=== PATIENT | female | born 1945 | race Caucasian/White ===

== ENCOUNTER 2022-02-25 08:51 | Outpatient (CLI) | payer OTHER, SELFPAY ==
--- NOTE | 2022-02-25 09:15 | CRLHL7_ITS ---
For Patients: As a result of the Century Cures Act, medical imaging exams and procedure reports are released immediately into your electronic medical record. You may view this report before your referring provider. If you have questions, please contact your health care provider. INDICATION: Hearing loss. TECHNIQUE: Multiplanar multisequence MR imaging acquired through the brain and internal auditory canals prior to and following intravenous contrast. COMPARISON: None. FINDINGS: Prominence of the ventricles and sulci compatible with minimal diffuse cerebral volume loss. No mass effect or midline shift. Small T2 FLAIR hyperintensities scattered in the supratentorial white matter, typical for mild chronic microvascular ischemic changes. No intracranial hemorrhage or pathologic extra-axial fluid collection. No diffusion restriction to suggest acute infarction. No pathologic intracranial enhancement. Incidental small pineal cyst. No mass or pathologic enhancement within the internal auditory canals or cerebellopontine angles. No concerning signal abnormalities in the inner ear structures. No vascular loop within the internal auditory canals. The major arterial flow voids of the skullbase are preserved. Thinning of the ocular lenses. Mild right maxillary and ethmoid sinus mucosal thickening. Small right and trace left mastoid effusions. IMPRESSION: 1. No acute intracranial abnormality. 2. No mass or pathologic enhancement within the internal auditory canals or cerebellopontine angles. 3. Mild chronic microvascular ischemic changes. 4. Small right and trace left mastoid effusions. Dictated by Rolando Varela MD @ 02/25/2022 2:12:46 PM (Electronically Signed)
== END 2022-02-25 08:52 | disposition home or self-care (01) ==
LOC: MRI 08:51
PROVIDERS: PCP Internal Medicine; Visit Provider Otolaryngology
DX: H91.8X9 Other specified hearing loss, unspecified ear (principal); I67.82 Cerebral ischemia; J32.0 Chronic maxillary sinusitis
CPT/HCPCS: 70553

== ENCOUNTER 2022-06-28 15:39 | Outpatient (REF) | payer OTHER, SELFPAY ==
[2022-06-28 16:33] LABS: Basophils Percent Auto 0.2 % (0.0-3.0); Hematocrit 38.7 % (33.0-51.0); Hemoglobin* 12.5 gm/dL (12.0-16.0); Immature Granulocytes Pct Auto 0.1 %; Lymphocytes Percent Auto 83.9 % (20-44); Mean Corpuscular HGB Conc 32 gm/dL (32-36); Mean Corpuscular Hemoglobin 32 pg (26-34); Mean Corpuscular Volume 98 fL (80-100); Monocytes Percent Auto 1.7 % (0.0-11.0); Neutrophils Percent Auto 13.1 % (42.0-72.0); Platelet Count* 188 K/uL (140-440); RDW Coefficient of Variation % 13.4 % (11.5-15.5); Red Blood Count 3.95 m/uL (4.00-5.20); White Blood Count* 17.98 K/uL (4.50-11.00)
[2022-06-28 16:39] LABS: Slide Review Reflex No
== END 2022-06-28 15:40 | disposition home or self-care (01) ==
LOC: NPINS 15:39
PROVIDERS: PCP Internal Medicine
DX: E78.5 Hyperlipidemia, unspecified (principal); R41.3 Other amnesia; K57.32 Diverticulitis of large intestine without perforation or abscess without bleeding; E04.9 Nontoxic goiter, unspecified; H40.023 Open angle with borderline findings, high risk, bilateral; D34 Benign neoplasm of thyroid gland; G47.00 Insomnia, unspecified; I34.1 Nonrheumatic mitral (valve) prolapse; M81.0 Age-related osteoporosis without current pathological fracture; C44.311 Basal cell carcinoma of skin of nose
CPT/HCPCS: 36415; 85025

== ENCOUNTER 2022-10-23 07:06 | Day surgery (SDC) | payer OTHER, SELFPAY ==
[2022-10-23] VITALS (23 sets, daily range): BP systolic 81–146; BP diastolic 55–81; PULSE 65–100; RESP 14–18; TEMP 36.1–37.1; O2SAT 93–100; BMI 24.2
[2022-10-23] MEDS: ACETAMINOPHEN 500 MG TABLET 1000 MG PO ×3 (07:34→19:54)
[2022-10-23] MEDS: OXYCODONE (CR) 10 MG TAB.ER.12H PO (07:34)
[2022-10-23] MEDS: CELECOXIB 200 MG CAPSULE PO ×2 (07:34→21:15)
--- NOTE | 2022-10-23 08:27 | CRLHL7_ITS ---
For Patients: As a result of the Cures Act, medical imaging exams and procedure reports are released immediately into your electronic medical record. You may view this report before your referring provider. If you have questions, please contact your health care provider. Indication: post op total knee arthroplasty Technique: Two views right knee Findings/Impression: Hardware from a right total knee arthroplasty is in satisfactory position. Bone alignment is normal. No sign of acute fracture. Postop changes are within normal limits. Dictated by Carl Vaughn MD @ 10/23/2022 12:17:43 PM (Electronically Signed)
--- NOTE | 2022-10-23 08:34 | SUR.PREOP ---
TIME?OUT:?0834 PT/RN/MDA?VERIFICATION?OF?SURGICAL?SITE,?PROCEDURE,?AND?CONSENT OBTAINED?PRIOR?TO?INVASIVE?PROCEDURE.
[2022-10-23] MEDS: MIDAZOLAM HCL 1 MG/ML inj IVP (08:38)
[2022-10-23] MEDS: fentaNYL 100 MCG/2 ML inj IVP (08:38)
--- NOTE | 2022-10-23 08:49 | P.NB_ITS ---
Nerve Block Nerve Block Time Seen by Provider: 08:25 Date Seen: 10/23/22 Type of block requested by surgeon for post-operative analgesia: adductor canal Side: right Time out performed: Yes Verification of patient name: Yes Verification of date of : Yes Site marking: site marked Name of person performing procedure: shelton Continuous monitoring Was continuous monitoring of O2 sat, B/P, cardiac exercise specialist, recorded every 15 minutes?: Yes Procedure Checklist: sterile prep, needles and gloves Ultrasound guided. Images saved: Yes Medications given in 5ml increments after negative aspiration: Ropivicaine %: 0.5 mL: 20 Needle gauge: 20 Decadron (mg): 10 Precedex (mcg): 25 Patient tolerated procedure well: Yes Block Charges Block Charge (with Pro Fee): Femoral Nerve Use of Ultrasound Machine for Block: Yes- US Guidance/pain block
--- NOTE | 2022-10-23 08:51 | P.NB_ITS ---
Nerve Block Nerve Block Time Seen by Provider: 08:30 Date Seen: 10/23/22 Type of block requested by surgeon for post-operative analgesia: geniculars Side: right Time out performed: Yes Verification of patient name: Yes Verification of date of : Yes Site marking: site marked Name of person performing procedure: shelton Continuous monitoring Was continuous monitoring of O2 sat, B/P, pediatric immunologist, recorded every 15 minutes?: Yes Procedure Checklist: sterile prep, needles and gloves Ultrasound guided. Images saved: No Medications given in 5ml increments after negative aspiration: Ropivicaine %: 0.5 mL: 12 Needle gauge: 25 Patient tolerated procedure well: Yes Block Charges Block Charge (with Pro Fee): Genicular Nerve Block Use of Ultrasound Machine for Block: No
[2022-10-23] MEDS: CEFAZOLIN 2 GM in 0.9 % SODIUM CHLORIDE Mini-bag 100 ML IVPB (09:15)
--- NOTE | 2022-10-23 10:33 | PM.ORPRC ---
Procedure Note Date of procedure: 10/23/22 Procedure: PREOPERATIVE DIAGNOSIS: 1. Right knee osteoarthritis, primary, severe POSTOPERATIVE DIAGNOSIS: 1. Right knee osteoarthritis, primary, severe PROCEDURE: 1. Right total knee arthroplasty SURGEON: Barrett Mendoza MD. CREW TRUCK DRIVER: Javier Brown PA-C - Of note, a skilled mortgage loan assistant was critical for this case to aid in patient positioning, tissue retraction, limb manipulation/positioning, and closure. ANESTHESIA: Spinal anesthetic IMPLANTS: DePuy J&J all cemented TKA - Attune PS femur size 7, size 6 tibia, 5 poly spacer, 38mm patella TOURNIQUET: 90 min at 300 torr EBL: 50 ml COMPLICATIONS: None evident INDICATIONS: The patient is a pleasant 77-year-old male female who has experienced severe right knee pain and difficulty bearing weight. Workup included x-rays which revealed severe osteoarthrosis in the knee. Given the deformity, the dysfunction, and the pain, as well as the failure of nonoperative management, recommendation was made for surgery. FINDINGS: Severely arthritic/worn out medial and patellofemoral compartments. Moderate effusion upon entering the joint. Large popliteal cyst that we encountered during the surgery with fluid expressed into the joint. DESCRIPTION OF PROCEDURE: Following a thorough discussion of risks, benefits, and alternatives consent was obtained and the right knee was marked. The patient was brought to the operating room and placed supine on the operating table. Induction of anesthesia was undertaken. 1 g IV Ancef and 1 g tranexamic acid was administered within 1 hr of incision preoperatively. Proper time-out was performed identifying proper patient, site, procedure. The operative extremity was prepped and draped in the appropriate sterile fashion using ChloraPrep after the patient was positioned supine with all bony prominences well padded. A longitudinal, anterior, midline skin incision was made starting approximately 3cm proximal to the superior pole of the patella and advanced distal to the tibial tubercle. A median parapatellar arthrotomy was created. A medial subperiosteal sleeve was created with knife, ramírez elevator and curved osteotome. The retropatellar fatpad was resected and the synovium in the suprapatellar pouch excised to visualize the anterior femoral cortex. Femoral preparation was performed via an intramedullary guide. Step drill allowed access into the femoral canal. The distal cutting guide was placed with 5? of valgus and 10 mm cut on the distal femur. Femur was sized using a posterior referencing guide in 3? of external rotation. This found have a best fit with the sizing noted above. The 4 in 1 cutting block was then placed, and the distal femur shaped accordingly. The box cut was then created and the trial implant inserted to confirm appropriate fit. We turned our attention to the proximal tibia. Extramedullary guide was utilized for cutting with the goal of being 90 degree cut from the mechanical axis of the tibia in the varus/valgus plane utilizing tibial crest as the primary alignment. Initially a 2 mm resection was performed from the medial tibial plateau. Eventually, an additional 2 mm did require resection. Ultimately, balancing was achieved in both flexion and extension in both varus and valgus. The knee was able to achieve full extension as well comfortably. The patella was initially measured and found have a thickness of 21 mm. It was resected back to approximately 14 mm. It was sized to be a best fit with as noted above. This was drilled, trial placed. All trials were placed and found to have an excellent stability and balance. At this stage, trial implants were removed, the knee was thoroughly irrigated with normal saline, and the cement was mixed. After irrigation, the knee was thoroughly dried, and cement placed, with the real tibial and femoral implants placed along with the patella. Trial poly spacer was placed and confirmed to have excellent range of motion and full extension, and the real poly spacer opened and inserted. All extra cement was removed, and a 3 min Betadine soak performed. Finally, a final irrigation round with normal saline was performed. Closure performed with 0 Vicryl and #0 Stratafix for the quad tendon/retinaculum. 2-0 Vicryl for the subcutaneous and 4-0 Stratafix for subcuticular closure. Dressings were applied and the patient was awoken from anesthesia after the tourniquet deflated and transferred the PACU in stable condition. A skilled mortgage loan assistant was critical for this case to aid in patient positioning, tissue retraction, bone exposure, limb manipulation/positioning, patient safety, and closure. PLAN: 1. Weight bear as tolerated operative extremity. 2. 23 hr perioperative antibiotics. 3. Ice. 4. PT/OT consults for ambulation assistance/mobility education. 5. Social work consult for discharge planning. 6. DVT prophylaxis with at SCDs, Fernandez Hose, and aspirin twice daily.
[2022-10-23] MEDS: LACTATED RINGERS 1000 ML 1,000 ML 100 ML IV (10:45)
--- NOTE | 2022-10-23 11:34 | W.ANESCHARGE ---
Anesthesia Charges Start Date/Time Anesthesia Start Date: 10/23/22 Anesthesia Start Time: 09:05 Stop Date/Time Anesthesia Stop Date: 10/23/22 Anesthesia Stop Time: 11:24
--- NOTE | 2022-10-23 12:04 | SUR.PHASEI ---
patient met discharge criteria per anesthesia
--- NOTE | 2022-10-23 12:50 | P.IMCN_ITS ---
Date of Consult Patient: [facility] Patient Consult date: 10/23/22 Primary Care Provider: Jihan Casillas MD Consult Narrative Reason for consult: Medical management of comorbidities Narrative: Haley Begum is a 77 year old female who presented to the hospital today for an elective R TKA with Dr. Mendoza of Orthopedic Surgery. There were no surgical or anesthetic complications noted during procedure. She is requiring low-dose supplemental oxygen postoperatively, but denies any chest pain or shortness of breath. Patient's H&P reviewed, PCP is Dr. Casillas. Past medical history significant for: CLL, osteoporosis History of blood clots: No Postoperative plan: Home with and son (lives locally) Review of Systems Status of ROS: Reports: 10 or more systems reviewed and unremarkable except as noted in History and below [facility] Medical History (Updated 10/23/22 @ 12:07 by Ale Ramos) History of diverticulitis of colon ?Z87.19 - Personal history of other diseases of the digestive system (ICD-10) Surgical History (Updated 10/23/22 @ 12:07 by Ale Ramos) History of basal cell carcinoma (BCC) (12/02/17) ?Z85.828 - Personal history of other malignant neoplasm of skin (ICD-10) History of bilateral cataract extraction (2020) ?Z98.41 - Cataract extraction status, right eye (ICD-10) ?Z98.42 - Cataract extraction status, left eye (ICD-10) History of bunionectomy of right great toe (2005) ?Z98.890 - Other specified postprocedural states (ICD-10) History of D&C (1974) ?Z98.890 - Other specified postprocedural states (ICD-10) History of partial thyroidectomy (2009) ?E89.0 - Postprocedural hypothyroidism (ICD-10) History of right breast biopsy (1994) ?Z98.890 - Other specified postprocedural states (ICD-10) History of tonsillectomy (1948) ?Z90.89 - Acquired absence of other organs (ICD-10) Status post total right knee replacement (10/23/22) ?Z96.651 - Presence of right artificial knee joint (ICD-10) Family History (Updated 10/22/22 @ 13:19 by Michelle Diallo) Father Heart disease Stroke Myocardial infarction Mother Aneurysm Stroke Sister A-fib Polio Sleep apnea Thyroid disease Social History (Updated 08/20/22 @ 10:01 by Kathia Reyes ~ SOCIETY EDITOR, SOCIETY EDITOR) Highest level of school completed/degree received: some college, no degree Smoking Status: Former smoker What tobacco products do you use: cigarettes Smoking quit date/years: >15 years ago Do you use any of these nicotine containing products: None Second hand tobacco smoke exposure: No How often do you have a drink containing alcohol: 4 or more times a week Alcohol type: wine How many standard drinks containing alcohol do you have on a typical day: 1 or 2 How often do you have six or more drinks on one occasion: Never AUDIT-C Alcohol total score: 4 Non-prescribed substance use: denies use Caffeine: Yes (coffee, 1 cup/AM) Little interest or pleasure in doing things: not at all Feeling down, depressed, or hopeless: not at all service: No Meds Home Medications and Allergies Home Medications Medication Instructions Recorded Confirmed Type aspirin 81 mg tablet,delayed 81 mg PO DAILY 02/05/22 10/23/22 History release calcium carbonate 600 mg calcium 600 mg PO DAILY 02/05/22 10/23/22 History (1,500 mg) tablet multivitamin with minerals 1 tab PO DAILY 02/05/22 10/23/22 History (Multiple Vitamin-Minerals tablet) omeprazole 20 mg tablet,delayed 20 mg PO DAILY PRN 02/05/22 10/23/22 History release zolpidem 5 mg tablet 5 mg PO HS PRN 02/05/22 10/23/22 History atorvastatin 20 mg tablet 20 mg PO HS 10/23/22 10/23/22 History Allergies Allergy/AdvReac Type Severity Reaction Status Date / Time erythromycin base Allergy Severe Abdominal Verified 10/23/22 07:27 Pain azithromycin Allergy Intermediate vomiting/si Verified 10/23/22 07:27 ck Penicillins Allergy rash, Verified 10/23/22 07:27 itching, tingling Exam Narrative: Exam Narrative: GEN: Alert and answering questions appropriately, sitting comfortably in bed HEENT: EOMIs bilaterally, no scleral icterus CV: RRR, No concerning murmurs, rubs, or gallops R: LCTA bilaterally without concerning wheezing, air movement is adequate Ext: wwp, no concerning edema Skin: No concerning skin lesions or rashes on exposed skin Neuro: Nonfocal Const: Vital Signs, click to edit/add: Vital Signs - 24 hr 10/23/22 07:48 10/23/22 08:38 10/23/22 08:40 Temperature 97.6 F Pulse Rate 70 68 69 Respiratory Rate 16 16 16 Blood Pressure 146/75 H 132/66 130/70 Pulse Oximetry 98 100 97 Oxygen Delivery Me thod Room Air Nasal Cannula Nasal Cannula Oxygen Flow Rate 2 2 10/23/22 08:45 10/23/22 11:19 10/23/22 11:55 Temperature 97 F L 97.1 F L Pulse Rate 74 73 68 Respiratory Rate 16 16 14 Blood Pressure 122/68 97/57 L 103/65 Pulse Oximetry 96 95 96 Oxygen Delivery Me thod Nasal Cannula Nasal Cannula Nasal Cannula Oxygen Flow Rate 2 3 2 10/23/22 11:25 10/23/22 11:30 10/23/22 11:35 Temperature 97 F L 97 F L 97 F L Pulse Rate 70 80 66 Respiratory Rate 18 14 14 Blood Pressure 110/55 L 92/64 106/64 Pulse Oximetry 95 95 95 Oxygen Delivery Me thod Nasal Cannula Nasal Cannula Nasal Cannula Oxygen Flow Rate 3 3 3 10/23/22 11:40 10/23/22 11:45 10/23/22 11:50 Temperature 97 F L 97 F L 97.1 F L Pulse Rate 65 71 68 Respiratory Rate 18 16 14 Blood Pressure 112/65 107/56 L 103/65 Pulse Oximetry 95 94 96 Oxygen Delivery Me thod Nasal Cannula Nasal Cannula Nasal Cannula Oxygen Flow Rate 3 2 2 Assessment and Plan Assessment and plan (1) Status post total right knee replacement: Problem comment: 10/23/2022, Dr. Mendoza Status: Acute (2) Chronic lymphocytic leukemia: Problem comment: Dxed 02/23/20 at [facility], followed by Hematology q6 months Status: Acute (3) Hyperlipidemia: Problem comment: on statin, managed at [facility] until 04/12 Status: Acute (4) Osteopenia: Problem comment: 04/05/21 [place] DEXA Spine -2.2. Improved from 02/23/20. Status: Chronic Plan - pain management and prophylaxis per orthopedic surgery team - continue home medications for comorbidities - wean off supplemental oxygen as tolerated - anticipate routine postoperative course
[2022-10-23] MEDS: OXYCODONE 5 MG TABLET PO ×2 (16:23→22:57)
[2022-10-23] MEDS: CEFAZOLIN 1 GM in 0.9 % SODIUM CHLORIDE Mini-bag 100 ML IVPB ×2 (16:25→23:39)
--- NOTE | 2022-10-23 19:25 | PC.NURSE ---
R.B. 79 R Total Knee Pt arrived to floor @ 1200. Post op vitals complete. Pt had soft BPs which have stabilized. Up with PT at 1400 at bedside. Became dizzy and BPs dropped per therapy. Returned to semi dahl with BP improvement. Weaned to room air. 4-6 pain to R knee improved with Tylenol and 2.5 mg oxy. Cryo pack in place, pt declined elevation. Bilat foot SCDs in place. Aquacel dressing clean dry intact. Pt advanced to regular, ate 75% of dinner. Maintenance IVFs DCed. 1 of 3 IV abx given. Pt voided 250mL on bedside commode at 1830. Plans to DC home tomorrow pending stability with and son. Pt would like PRNs for seep before bed. Zane Carer 10/23/2022
[2022-10-23] MEDS: SENNOSIDES 1 TAB TABLET 2 TAB PO (21:15)
[2022-10-23] MEDS: ASPIRIN 81 MG TABLET EC PO (21:15)
--- NOTE | 2022-10-23 22:24 | PC.NURSE ---
End of Shift ([id number]): Patient pleasant and cooperative. Afebrile. Dressing to right knee C/D/I, CMS intact. Rating pain in right knee 3-4/10. Up to bathroom with 1 assist, walker and gait belt. Tolerating regular diet with no nausea.
[2022-10-24] MEDS: ONDANSETRON 2 MG/ML inj 4 MG IVP (01:53)
[2022-10-24 02:20] VITALS: BP 104/64; PULSE 94; RESP 18; TEMP 37.2; O2SAT 94
--- NOTE | 2022-10-24 04:46 | PC.NURSE ---
Shift note: Pt is doing well with A1, walker and GB for ambulation. Pain has been rated at 3. IV line infiltrated and new one inserted at right AC at 0200. Pt complained of nausea at 0200, Zofran given but refused scheduled Tylenol. Warm blanket given r/t feel chills. Dressing appears clean and dry.
[2022-10-24 06:48] LABS: Basophils Percent Auto 0.1 % (0.0-3.0); Hematocrit 31.9 % (33.0-51.0); Hemoglobin* 10.5 gm/dL (12.0-16.0); Immature Granulocytes Pct Auto 0.1 %; Lymphocytes Percent Auto 77.1 % (20-44); Mean Corpuscular HGB Conc 33 gm/dL (32-36); Mean Corpuscular Hemoglobin 32 pg (26-34); Mean Corpuscular Volume 96 fL (80-100); Monocytes Percent Auto 1.5 % (0.0-11.0); Neutrophils Percent Auto 21.2 % (42.0-72.0); Platelet Count* 165 K/uL (140-440); RDW Coefficient of Variation % 13.4 % (11.5-15.5); Red Blood Count 3.33 m/uL (4.00-5.20); White Blood Count* 24.65 K/uL (4.50-11.00)
[2022-10-24 07:12] LABS: Sodium* 134 mmol/L (135-149)
[2022-10-24 07:14] LABS: Creatinine* 0.7 mg/dL (0.5-1.5); Est. Creatinine Clearance* 41.05; Estimated Glomerular Filt Rate 88 ml/min
[2022-10-24 07:15] LABS: Blood Urea Nitrogen* 26 mg/dL (7-30)
[2022-10-24 07:55] LABS: Slide Review Reflex Yes
[2022-10-24 07:58] LABS: Slide Review Acceptable Review (Acceptable)
[2022-10-24] MEDS: SENNOSIDES 1 TAB TABLET 2 TAB PO (08:21)
[2022-10-24] MEDS: CELECOXIB 200 MG CAPSULE PO (08:21)
[2022-10-24] MEDS: ASPIRIN 81 MG TABLET EC PO (08:21)
[2022-10-24] MEDS: CEFAZOLIN 1 GM in 0.9 % SODIUM CHLORIDE Mini-bag 100 ML IVPB (08:21)
[2022-10-24] MEDS: ACETAMINOPHEN 500 MG TABLET 1000 MG PO (08:21)
[2022-10-24] MEDS: OXYCODONE 5 MG TABLET PO (08:39)
[2022-10-24 08:43] VITALS: BP 110/58; PULSE 76; RESP 16; TEMP 37; O2SAT 92
[2022-10-24 09:11] VITALS: BP 103/65; PULSE 68; RESP 16; TEMP 37
--- NOTE | 2022-10-24 09:11 | P.ORPN_ITS ---
Subjective Subjective Date Seen: 10/24/22 Principal diagnosis: Status postop day 1 right total knee arthroplasty Interval history: Patient reports doing well. No acute events over night. She has been experiencing nausea since surgery, non emesis. Pain managed with scheduled /PRN medications and ice. DVT prophylaxis 81 mg aspirin by mouth twice daily, bilateral knee high Fernandez stockings, and SCDs. Denies fevers, chills, aches, vomiting, CP, SOB/GUZMAN, tachycardia, or lightheadedness. Ortho Exam Narrative Exam Narrative: -Patient appears comfortable; no apparent acute distress -Alert and oriented times 3 -Operative knee mildly swollen; soft tissues supple; no ecchymosis; no erythematous streaking Warmth appropriate -knee flexing to 90? with ease -Surgical dressing clean, dry, intact; no drainage -Bilateral calfs soft; no significant swelling, edema, tenderness, erythema, discoloration, warmth, or palpable cords -2+ DP/PT pulses, intact dermatomes and myotomes distally (5/5 strength) Const Vital Signs, click to edit/add: Vital Signs - 24 hr 10/23/22 11:19 10/23/22 11:55 10/23/22 11:25 Temperature 97 F L 97.1 F L 97 F L Pulse Rate 73 68 70 Pulse Rate [Right Pulse Oximeter] Respiratory Rate 16 14 18 Blood Pressure 97/57 L 103/65 110/55 L Blood Pressure [Left Arm] Pulse Oximetry 95 96 95 Oxygen Delivery Method Nasal Cannula Nasal Cannula Nasal Cannula Oxygen Flow Rate 3 2 3 10/23/22 11:30 10/23/22 11:35 10/23/22 11:40 Temperature 97 F L 97 F L 97 F L Pulse Rate 80 66 65 Pulse Rate [Right Pulse Oximeter] Respiratory Rate 14 14 18 Blood Pressure 92/64 106/64 112/65 Blood Pressure [Left Arm] Pulse Oximetry 95 95 95 Oxygen Delivery Method Nasal Cannula Nasal Cannula Nasal Cannula Oxygen Flow Rate 3 3 3 10/23/22 11:45 10/23/22 11:50 10/23/22 15:25 Temperature 97 F L 97.1 F L Pulse Rate 71 68 Pulse Rate [Right Pulse Oximeter] Respiratory Rate 16 14 Blood Pressure 107/56 L 103/65 Blood Pressure [Left Arm] Pulse Oximetry 94 96 Oxygen Delivery Method Nasal Cannula Nasal Cannula Room Air Oxygen Flow Rate 2 2 10/23/22 12:00 10/23/22 12:00 10/23/22 12:00 Temperature 96.9 F L Pulse Rate Pulse Rate [Right Pulse Oximeter] 75 Respiratory Rate 16 16 Blood Pressure Blood Pressure [Left Arm] 108/66 Pulse Oximetry 95 Oxygen Delivery Method Nasal Cannula Nasal Cannula Nasal Cannula Oxygen Flow Rate 2 2 10/23/22 12:15 10/23/22 12:30 10/23/22 12:45 Temperature Pulse Rate Pulse Rate [Right Pulse Oximeter] Respiratory Rate 16 Blood Pressure Blood Pressure [Left Arm] 112/66 96/77 81/67 L Pulse Oximetry Oxygen Delivery Method Nasal Cannula Nasal Cannula Oxygen Flow Rate 2 2 10/23/22 13:00 10/23/22 16:00 10/23/22 13:30 Temperature 97.1 F L Pulse Rate Pulse Rate [Right Pulse Oximeter] 90 Respiratory Rate 18 Blood Pressure Blood Pressure [Left Arm] 114/68 126/81 Pulse Oximetry 93 Oxygen Delivery Method Room Air Oxygen Flow Rate 10/23/22 14:00 10/23/22 17:15 10/23/22 15:00 Temperature Pulse Rate Pulse Rate [Right Pulse Oximeter] 100 100 Respiratory Rate 18 18 Blood Pressure Blood Pressure [Left Arm] 111/65 Pulse Oximetry 96 Oxygen Delivery Method Room Air Room Air Aerosol Mask Oxygen Flow Rate 10/23/22 19:00 10/23/22 23:00 10/23/22 23:00 Temperature 98.7 F 98.7 F Pulse Rate Pulse Rate [Right Pulse Oximeter] 94 89 Respiratory Rate 18 18 18 Blood Pressure Blood Pressure [Left Arm] 124/75 143/71 H Pulse Oximetry 93 93 93 Oxygen Delivery Method Room Air Room Air Room Air Oxygen Flow Rate 10/24/22 02:20 10/24/22 08:43 Temperature 98.9 F 98.6 F Pulse Rate Pulse Rate [Right Pulse Oximeter] 94 76 Respiratory Rate 18 16 Blood Pressure Blood Pressure [Left Arm] 104/64 110/58 L Pulse Oximetry 94 92 Oxygen Delivery Method Room Air Room Air Oxygen Flow Rate Assessment and Plan Assessment and plan (1) Status post total right knee replacement: Problem details: 10/23/2022, Dr. Mendoza Status: Acute (2) Chronic lymphocytic leukemia: Problem details: Dxed 02/23/20 at [facility], followed by Hematology q6 months Status: Acute (3) Hyperlipidemia: Problem details: on statin, managed at [facility] until 04/12 Status: Acute (4) Osteopenia: Problem details: 04/05/21 [place] DEXA Spine -2.2. Improved from 02/23/20. Status: Chronic (5) Acute blood loss anemia: Problem details: Hemoglobin 10.5-asymptomatic Status: Acute Plan - Complete 23 hour perioperative antibiotics. - PT/OT consult for education and assistance. - Social work consult for discharge planning - Prescribed analgesics as needed - Recommend Zofran and aroma therapy patch for nausea p.r.n. - DVT prophylaxis: 81 mg aspirin by mouth twice daily, bilateral knee high Fernandez Hose stockings and SCDs - Anticipation is for discharge to home with family 10/24/2022 if the patient remains medically stable, pain is controlled, and they are safe with mobilization.
--- NOTE | 2022-10-24 09:14 | P.DS_ITS ---
DS: Providers Provider Date Seen: 10/24/22 Date of admission: Med/Surg Recovery 10/23/2022 Primary care physician: Jihan Casillas MD Consults: 10/23/22 11:59 Consult to Occupational Therapy [CONS] Routine Comment: Reason(s) for OT Consult:: ADLs Prior to Discharge Any Restrictions?:: See Comment Comment: See nursing activity order for any restrictions. Consult to Physical Therapy [CONS] Routine Comment: Ambulate in the rodriguez today. Reason(s) for PT Consult:: TKA TX Protocol POD#0 Any Restrictions?:: See Comment Comment: See nursing activity order for any restrictions. Consult to Physician [CONS] Routine Comment: Consulting Provider: Hospitalists Has provider been notified: No Consult to Christmas Tree Contractor [CONS] Routine Comment: Reason for Consult:: Discharge Planning Needs Attending Physician on discharge: Barrett Mendoza MD Date of Discharge: 10/24/22 DS: Diagnosis Discharge Diagnosis (1) Status post total right knee replacement: Status: Acute Problem details: 10/23/2022, Dr. Mendoza DS: Summary Hospital Course Hospital Course: The patient has a history of right knee osteoarthritis, primary, severe. After appropriate preoperative evaluation, the patient underwent right total knee arthroplasty. Postoperatively given anticoagulation for deep vein thrombosis prophylaxis. They progressed to PT/OT and were felt ready and prepared for discharge to home with appropriate pain medication and anticoagulation medications. Status at Discharge Functional status at discharge: uses cane/walker Overall status at discharge: patient is progressing back to baseline Time Spent with Patient Time attestation: Total time spent providing and/or coordinating discharge services: Time spent: Less than 30 minutes Exam Const: Vital Signs, click to edit/add: Vital Signs - 24 hr 10/23/22 11:19 10/23/22 11:55 10/23/22 11:25 Temperature 97 F L 97.1 F L 97 F L Pulse Rate 73 68 70 Pulse Rate [Right Pulse Oximeter] Respiratory Rate 16 14 18 Blood Pressure 97/57 L 103/65 110/55 L Blood Pressure [Le ft Arm] Pulse Oximetry 95 96 95 Oxygen Delivery Me thod Nasal Cannula Nasal Cannula Nasal Cannula Oxygen Flow Rate 3 2 3 10/23/22 11:30 10/23/22 11:35 10/23/22 11:40 Temperature 97 F L 97 F L 97 F L Pulse Rate 80 66 65 Pulse Rate [Right Pulse Oximeter] Respiratory Rate 14 14 18 Blood Pressure 92/64 106/64 112/65 Blood Pressure [Le ft Arm] Pulse Oximetry 95 95 95 Oxygen Delivery Me thod Nasal Cannula Nasal Cannula Nasal Cannula Oxygen Flow Rate 3 3 3 10/23/22 11:45 10/23/22 11:50 10/23/22 15:25 Temperature 97 F L 97.1 F L Pulse Rate 71 68 Pulse Rate [Right Pulse Oximeter] Respiratory Rate 16 14 Blood Pressure 107/56 L 103/65 Blood Pressure [Le ft Arm] Pulse Oximetry 94 96 Oxygen Delivery Me thod Nasal Cannula Nasal Cannula Room Air Oxygen Flow Rate 2 2 10/23/22 12:00 10/23/22 12:00 10/23/22 12:00 Temperature 96.9 F L Pulse Rate Pulse Rate [Right Pulse Oximeter] 75 Respiratory Rate 16 16 Blood Pressure Blood Pressure [Le ft Arm] 108/66 Pulse Oximetry 95 Oxygen Delivery Me thod Nasal Cannula Nasal Cannula Nasal Cannula Oxygen Flow Rate 2 2 10/23/22 12:15 10/23/22 12:30 10/23/22 12:45 Temperature Pulse Rate Pulse Rate [Right Pulse Oximeter] Respiratory Rate 16 Blood Pressure Blood Pressure [Le ft Arm] 112/66 96/77 81/67 L Pulse Oximetry Oxygen Delivery Me thod Nasal Cannula Nasal Cannula Oxygen Flow Rate 2 2 10/23/22 13:00 10/23/22 16:00 10/23/22 13:30 Temperature 97.1 F L Pulse Rate Pulse Rate [Right Pulse Oximeter] 90 Respiratory Rate 18 Blood Pressure Blood Pressure [Le ft Arm] 114/68 126/81 Pulse Oximetry 93 Oxygen Delivery Me thod Room Air Oxygen Flow Rate 10/23/22 14:00 10/23/22 17:15 10/23/22 15:00 Temperature Pulse Rate Pulse Rate [Right Pulse Oximeter] 100 100 Respiratory Rate 18 18 Blood Pressure Blood Pressure [Le ft Arm] 111/65 Pulse Oximetry 96 Oxygen Delivery Me thod Room Air Room Air Aerosol M ask Oxygen Flow Rate 10/23/22 19:00 10/23/22 23:00 10/23/22 23:00 Temperature 98.7 F 98.7 F Pulse Rate Pulse Rate [Right Pulse Oximeter] 94 89 Respiratory Rate 18 18 18 Blood Pressure Blood Pressure [Le ft Arm] 124/75 143/71 H Pulse Oximetry 93 93 93 Oxygen Delivery Me thod Room Air Room Air Room Air Oxygen Flow Rate 10/24/22 02:20 10/24/22 08:43 10/24/22 09:11 Temperature 98.9 F 98.6 F 98.6 F Pulse Rate 68 Pulse Rate [Right Pulse Oximeter] 94 76 Respiratory Rate 18 16 16 Blood Pressure 103/65 Blood Pressure [Le ft Arm] 104/64 110/58 L Pulse Oximetry 94 92 Oxygen Delivery Me thod Room Air Room Air Oxygen Flow Rate DS: Data Data Completed and Pending Labs on day of discharge: Labs from last 24 hours 10/24/22 05:55 WBC 24.65 H RBC 3.33 L Hgb 10.5 L Hct 31.9 L MCV 96 MCH 32 MCHC 33 RDW Coeff of Bernard 13.4 Plt Count 165 Neut % (Auto) 21.2 L Lymph % (Auto) 77.1 H [place] % (Auto) 1.5 Eos % (Auto) 0.0 Baso % (Auto) 0.1 Neut # (Auto) 5.20 Lymph # (Auto) 19.00 H [place] # (Auto) 0.40 Eos # (Auto) 0.00 Baso # (Auto) 0.00 Diff Slide Review Acceptable Review Sodium 134 L Potassium 4.0 BUN 26 Creatinine 0.7 Estimated Creat Clear 41.05 Estimated GFR 88 Discharge Plan Discharge Disposition: Home, Self-Care Discharging Surgeon: Barrett Mendoza Follow-Up Appointment: 1 week PO with Javier [place] Prescriptions: New acetaminophen 500 mg capsule 500 - 1,000 mg PO Q6H MDD 4000mg PRNQty: 100 0RF aspirin 81 mg tablet,delayed release (DR/EC) 81 mg PO BID Qty: 60 0RF Rx Instructions: Medication to help prevent blood clots postoperatively; take TWICE daily. sennosides-docusate sodium [Senna-S] 8.6-50 mg tablet 1 - 4 tab-cap PO BID PRN (Reason: constipation) Qty: 60 0RF Rx Instructions: Hold medication if experiencing loose stools. celecoxib 100 mg capsule 100 mg PO BID Qty: 60 0RF oxycodone 5 mg tablet 2.5 - 5 mg PO Q4-6H MDD 6 PRN (Reason: pain) Qty: 42 0RF Rx Instructions: Take as needed for postop pain: 2.5mg mild pain, 5mg moderate-severe pain; wean as tolerated. Continued omeprazole 20 mg tablet,delayed release (DR/EC) 20 mg PO DAILY PRN zolpidem 5 mg tablet 5 mg PO HS PRN calcium carbonate 600 mg calcium (1,500 mg) tablet 600 mg PO DAILY aspirin 81 mg tablet,delayed release (DR/EC) 81 mg PO DAILY Multiple Vitamin-Minerals Tablet 1 tab PO DAILY atorvastatin 20 mg tablet 20 mg PO HS Activity Level: Activity as Tolerated, Weight Bearing as Tolerated, Use Cane and Use Walker Activity Detail: Wound: ?Do not remove original dressing; we will remove this at first postop visit in 1 week. Only remove dressing if integrity is in question. ?No immersing wound in water; showering okay; light scrub with your hand and body soap, rinse, dab dry ?Sutures are under the skin, will dissolve; allow surgical glue to come off naturally; do not scrub the wound or apply ointments/lotions ?Call our office with any redness that streaks, excessive drainage from the wound, or wound gapping. Ice/Elevate: ?Ice as needed for swelling and discomfort (cryocuff or ice pack); elevate frequently above the heart KELSEA socks: ?Wear for 1 month, remove for 1 hour 3 times per day ?These are frustrating to take on/off, but are important for blood clot prevention for 1 month after surgery Blood Clot Prevention (DVT): ?Medication: 81 mg aspirin by mouth twice daily (1 month) Driving: ?Do not drive while taking narcotic pain medication ?Anticipate 4-6 weeks no driving if operative leg is driving leg Dental: ?No elective dental work for 6 months post-op. If there is an urgent/emergent dental need, contact our office for an antibiotic prescription. Smoking/Alcohol: ?Do not smoke; do no drink alcohol especially when taking postoperative oral narcotic medication Seek Care from you Primary Care Provider if you experience the following issues in the postoperative phase and beyond: ?Bacterial infections such as: pneumonia, bacterial skin infection (cellulitis), UTI, high fever, chills unrelated to the operative body part - call your primary care physician urgently for treatment in hopes to protect your health and the metal implant. Referrals: ?PT, OT per patient preference - evaluate treat total knee arthroplasty protocol (gait training, ROM, ADLs) Follow up: ?Ortho surgeon follow-up in 6 weeks; repeat radiographs three views operative knee ?PA-Kee visit in 1 week *If there are any acute concerns regarding your surgery, please call our orthopedic clinic ([phone]) Discharge Diet: Regular Patient Instructions: Acetaminophen (By mouth), Aspirin (By mouth), Oxycodone, Rapid Release (By mouth), Celecoxib (By mouth), Senna (By mouth), Surgical Site Infections (DC), Shoulder Arthroplasty (DC) Forms: Work/School Release Follow-up: Jihan Casillas MD [Primary Care Provider] - Javier Brown PA-C [Physician Digital Communications Manager] - 10/31/22 10:10 am ([facility] for Orthopedic follow up.) Discharge Orders: Discharge Order (Routine); Ordered 10/24/22 Ordered By: Javier Brown
--- NOTE | 2022-10-24 10:33 | PC.SOCIAL ---
Per therapy pt is doing well and will discharge today. There are no identified social work needs at this time.
--- NOTE | 2022-10-24 18:21 | PC.NURSE ---
R.B. 79 R Total Knee Pt assessed by PT/OT. Cleared for DC home with son via wheelchair and walker. Prescriptions sent to pharmacy. Reviewed discharge packet with no questions. Pt had mild nausea whole shift but declined nausea PRNs. Given 5mg oxy and PRN Tylenol for pain with relief. Zane Salvador 10/24/2022
== END 2022-10-24 18:26 | disposition home or self-care (01) ==
LOC: OR 07:07 → MEDSURG 07:15
PROVIDERS: PCP Internal Medicine; Visit Provider Orthopaedic Surgery Sports Medicine
PROC: (CPT 27447; principal; 2022-10-23 08:15)
DX: M17.11 Unilateral primary osteoarthritis, right knee (principal); D62 Acute posthemorrhagic anemia; C91.10 Chronic lymphocytic leukemia of B-cell type not having achieved remission; M85.80 Other specified disorders of bone density and structure, unspecified site; E78.5 Hyperlipidemia, unspecified
CPT/HCPCS: 27447; 01402; 36415; 64447; 64454; 73560; 76942; 82565; 84132; 84295; 84520; 85025; 97110; 97116; 97162; 97165; 97530; 97535; A9270; C1776; J0690; J1100; J2250; J2370; J2405; J2704; J2795; J3010; J7120

== ENCOUNTER 2023-05-22 11:40 | Outpatient (CLI) | payer OTHER, SELFPAY | END 2023-05-22 11:41 | disposition home or self-care (01) | PROVIDERS: PCP Internal Medicine; Visit Provider Internal Medicine | DX: E78.5 Hyperlipidemia, unspecified (principal); M85.80 Other specified disorders of bone density and structure, unspecified site | CPT/HCPCS: 80061; 82306 ==

== ENCOUNTER 2023-08-22 10:01 | Outpatient (CLI) | payer OTHER, SELFPAY ==
--- OUTSIDE RECORDS SUMMARY | 2023-08-22 10:03 | XMS_ITS | Clinical Summary ---
Author Name Unknown Organization [facility] Address [address] [place] [address] Care Team Providers Care Editor Trade Journal Name Role Phone Elsewhere, Pcp Primary Care Provider Unavailabl e Source Comments Patient records contain information from all sites at [facility]. For routine questions regarding patient records, call [phone] during business hours, M-F 8:00 AM - 5:00 PM Central Time. Record requests for emergency care only can be directed to [phone] at any time.[facility] Allergies Active Allergy Reactions Criticality Noted Date Comments Erythromycin Base GI intolerance Low 04/14/2003 Penicillins Itching Low 04/02/2012 verified Medications Medication Sig Dispensed Refills Start Date End Date Status aspirin [address] tablet Take 1 tablet by mouth every morning. 0 04/22/2014 Active naproxen sodium (ALEVE/ANAPROX) 220 mg tablet Take 2 tablets by mouth as needed. pain 0 06/29/2008 Active calcium carbonate/vitamin D3 (CALCIUM 600 + D,3, ORAL) Take 1 tablet by mouth every morning. 0 10/17/2014 Active folic acid/multivit-min/ lutein (CENTRUM SILVER ORAL) Take 1 tablet by mouth every morning. 0 04/22/2014 Active nitroglycerin (NITROSTAT) 0.[address] 1 TAB UNDER TONGUE NEEDED FOR CHEST PAIN, NO RELIEF IN 5MIN CALL 911 REPEAT DOSE EVERY 5MIN [id number] IF PAIN PERSIST 25 tablet 1 04/12/2020 Active Additional Information Patient taking differently: 0.4 mg sublingual Every 5 min PRN, Reported on 04/16/2022 omeprazole (PriLOSEC) [address] capsule Take 1 capsule (20 mg total) by mouth daily. 90 capsule 3 04/05/2021 Active Additional Information Patient taking differently:20 mg oralAs needed, Reported on 10/08/2022 zolpidem (AMBIEN) 5 mg tablet Take 1 tablet (5 mg total) by mouth at bedtime as needed for sleep. 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 Dermatochalasis Right Upper Eyelid 03/05/2019 Dermatochalasis Left Upper Eyelid 03/05/2019 Hyperopia Bilateral 03/05/2019 Malignant Neoplasm Of Nose Basal Cell 01/17/2018 Diverticulitis Colon 10/29/2017 Complaint Memory 12/09/2016 Osteoporosis 10/18/2013 Insomnia 10/08/2011 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 Hyperlipidemia 06/29/2008 Goiter 06/29/2008 Mitral Valve Prolapse 04/13/2003 Encounters Date Type Department Care Team Description 06/25/2023 1:45 PM ELECTRICIAN HELPER AUTOMOTIVE Office Visit Department of Ophthalmology in [place], [place] [address] Azra Alexander Glaucoma Open Angle Borderline High Risk Bilateral (Primary Dx) 06/25/2023 1:30 PM ELECTRICIAN HELPER AUTOMOTIVE Ancillary Procedure Department of Ophthalmology in [place], [place] [address] Azra Alexander Glaucoma Open Angle Borderline High Risk Bilateral 06/25/2023 1:05 PM ELECTRICIAN HELPER AUTOMOTIVE Ancillary Procedure Department of Ophthalmology 06/25/2023 12:30 PM ELECTRICIAN HELPER AUTOMOTIVE Ancillary Procedure Department of Ophthalmology in [place], [place] [address] Azra Alexander Glaucoma Open Angle Borderline High Risk Bilateral 06/25/2023 10:20 AM ELECTRICIAN HELPER AUTOMOTIVE Ancillary Procedure Department of Ophthalmology from Last 3 Months Immunizations Name Administration Dates Next Due H1N1 Inj 08/02/2009 HZV (ZOSTAVAX) 08/02/2009 Influenza (IM) Preservative Free 05/14/2011,08/2006 Influenza Split 05/21/2014, 3,04/20/2012,2010,04/20/2010,04/20/2008 Influenza TIV (IM) 05/13/2013,05/14/2011 Influenza high dose QV(65 ye ars or older) (PF) 05/14/2021 Influenza, Quadrivalent, Adj uvanted, Preservative Free 04/24/2020 Influenza, Seasonal, Injectable 05/13/20 13,04/19/2010,04/11/2009,2007,04/20/2008,05/23/2005 Influenza, Unspecified 04/24/2020,2014,04/02/2012,2009 PCV13 11/24/2015 PPSV23(Discontinued) 06/29/2008 RZV (SHINGRIX) 06/27/2019,04/10/2019 SARS-COV-2 (COVID-19) - PFIZ ER (Discontinued)(12 years or older) 03/22/2021 SARS-COV-2 (COVID-19) - PFIZ ER BIVALENT TS(Discontinued)(12 YEARS OR OLDER) 04/22/2022 Td Preservative Free (TENIVA C, DECAVAC) 03/29/2005 Td, (Adult) Unspecified 10/02/1994 Tdap 10/06/2012 influenza high dose (65 year s or older) (PF) 04/27/2019,04/20/2018,04/07/2017,2015,04/27/2015,05/24/2014,05/21/2014,1 influenza vaccine quad (FLUZONE/FLUARIX) (6 months and older)(PF) 04/27/2019 Family History Medical History Relation Name Comments Coronary artery disease Father mary qiu d ied at age 50 of eart attack Stroke Father mary qiu in 1961 at age 50 Transient ischemic attack Father mary qiu several before e Stroke Mother donna reyes of compl icatns of brain aneurysm Glaucoma Neg Hx Macular degeneration Neg Hx Relation Name Status Comments Father mary qiu Mother donna reyes Social History Tobacco Use Types Packs/Day Years Used Date Smoking Tobacco: Former Cigarettes 0.5 0 0 02/18/1959 - 02/18/1997 Smokeless Tobacco: Never Tobacco Cessation:Counseling Given: Not Answered Alcohol Use Standard Drinks/Week Comments Yes 7 (1 standard drink = 0.6 oz pur e alcohol) 1/night Humiliation, Afraid, Rape, and Kick questionnair e Answer Date Recorded Within the last year, have y ou been afraid of your partner or ex-partner? No 04/22/2022 Within the last year, have y ou been humiliated or emotionally abused in other ways by your partner or ex-partner? No Within the last year, have y ou been kicked, hit, slapped, or otherwise physically hurt by your partner or ex-partner? No 04/22/2022 Within the last year, have y ou been raped or forced to have any kind of sexual activity by your partner or ex-partner? No 04/22/2022 Social Connection and Isolat ion Panel [NHANES] Answer Date Recorded In a typical week, how many times do you talk on the phone with family, friends, or neighbors? More than three times a week 04/22/2022 How often do you get togethe r with friends or relatives? Twice a week 04/22/2022 How often do you attend chur ch or hindu services? Never 04/22/2022 Do you belong to any clubs o r organizations such as worship groups, unions, fraternal or athletic groups, or school groups? Yes 04/22/2022 How often do you attend meet ings of the clubs or organizations you belong to? More than 4 times per year 04/22/2022 Are you , , di vorced, , never , or living with a partner? 04/22/2022 AUDIT-C Answer Date Recorded Q1: How often do you have a drink containing alcohol? 4 or more times a week 04/22/2022 Q2: How many drinks containi ng alcohol do you have on a typical day when you are drinking? 1 or 2 Q3: How often do you have si x or more drinks on one occasion? Never 04/22/2022 Overall Financial Resource Strain (CARDIA) Answe r Date Recorded How hard is it for you to pa y for the very basics like food, housing, medical care, and heating? Not hard at all 04/22/2022 PHQ-2 Answer Date Recorded PHQ-2 Score 1 04/22/2022 [facility] - Occupational Stress Questionnaire Answer Date Recorded Do you feel stress - tense, restless, nervous, or anxious, or unable to sleep at night because your mind is troubled all the time - these days? To some extent 04/22/2022 Exercise Vital Sign Answer Date Recorde d On average, how many days pe r week do you engage in moderate to strenuous exercise (like a brisk walk)? Patient declined On average, how many minutes do you engage in exercise at this level? Patient declined 04/22/2022 Hunger Vital Sign Answer Date Recorded Within the past 12 months, y ou worried that your food would run out before you got the money to buy more. Never true 04/22/20 22 Within the past 12 months, t he food you bought just didn't last and you didn't have money to get more. Never true 04/22/2022 PRAPARE - Transportation Answer Date Re corded In the past 12 months, has l ack of transportation kept you from medical appointments or from getting medications? No 09/2021 In the past 12 months, has l ack of transportation kept you from meetings, work, or from getting things needed for daily living? No 04/22/2022 Housing Stability Vital Sign Answer Talon e Recorded In the last 12 months, was t here a time when you were not able to pay the mortgage or rent on time? No 04/22/2022 In the last 12 months, how many places have you lived? 1 04/22/2022 In the last 12 months, was t here a time when you did not have a steady place to sleep or slept in a chcf (including now)? No 04/22/2022 Depression Answer Date Recor ded PHQ-9 Total Score (max 27) 3 07/26 Nutrition Answer Date Recorded Nutrition: EVOO Fat Source Yes 04/22 On average, how many serving s of fruits and vegetables do you eat per day (serving size is equal to 1 cup or approximately the size of a tennis ball)? 2-3 04/22/2022 Dental Answer Date Recorded Dental: Regular Dentist Yes 04/05/20 Employment Answer Date Recorded Employment status Retired 04/22/2022 Education Answer Date Recorded What is the highest level of school you have completed or the highest degree you have received? Associate degree: occupational, technical, or vocational program 02/23/2020 Sex and Gender Information Value Date Recorded Sex Assigned at Female 04/05/2021 8:26 AM CDT Gender Identity Female 04/05/2021 8:26 AM CDT Sexual Orientation Straight 04/05/2021 8: 26 AM CDT Last Filed Vital Signs Vital Sign Reading Time Taken Comments Blood Pressure 138/38 01/30/2023 11:42 AM CDT Pulse 71 01/30/2023 11:42 AM CDT Temperature 36.6 ??C (97.9 ??F) 04/17/2022 1 0:51 AM CDT Respiratory Rate 15 01/13/2018 12:1 1 PM CDT Oxygen Saturation 96% 01/13/2018 12: 11 PM CDT Inhaled Oxygen Concentration - - Weight 65.2 kg (143 lb 11.8 oz) 023 11:42 AM CDT Height 168.2 cm (5' 6.22) 01/30/2023 1 1:42 AM CDT Body Mass Index 23.05 01/30/2023 11:42 AM CDT Plan of Treatment Health Maintenance Due Date Last Done Comments DTaP,Tdap,and Td Vaccines (2 - Td or Tdap) 10/06/2022 10/06/2012, 03/29/2005, 10/02/1994 Depression Screening (Annual PHQ-2) 07/21/2023 Fall Risk Screen (Annual) 07/21/2023 Pneumococcal vaccine (65+ years) Completed 11/24/2015, 06/29/2008 Zoster Vaccines Completed 06/27/2019, 03/22, 08/02/2009 COVID-19 Vaccine Completed 04/16/2023, 09/2021, 11/06/2021, Additional history exists Influenza Vaccine Completed 04/16/2023, , 05/14/2021, Additional history exists HPV Vaccines Aged Out No longer eligi ble based on patient's age to complete this topic Medical Devices Implanted Type Area Metal Moulder'S Assistant Device Identifier Shelf Expiration Date Model / Serial / Lot Small Frag-Screw Remy 3.5x20 - [employer]ries [id number] Implanted:Qty: 1 on 09/12/2005 Hardware e.g. pins/screws/ rods Right: Toes Depuy Synthes Description:Device Manufactu rer - Synthes. Device Status Text - [id number]. Toe right big Procedures Procedure Name Priority Date/Time Associated Diagnosis Comments OPTICAL COHERENCE TOMOGRAPHY (OCT) - OPTIC NERVE - OU - BOTH EYES Routine 06/25/2023 1:05 PM ELECTRICIAN HELPER AUTOMOTIVE Glaucoma Open Angle Borderline High Risk Bilateral OPHTHALMOLOGY IMAGE EXAM Routine 06/25/2023 1:05 PM ELECTRICIAN HELPER AUTOMOTIVE AUTOMATED VF - EXTENDED - OU - BOTH EYES Routine 06/25/2023 12:14 PM ELECTRICIAN HELPER AUTOMOTIVE Glaucoma Open Angle Borderline High Risk Bilateral OPHTHALMOLOGY IMAGE EXAM Routine 06/25/2023 10:20 AM ELECTRICIAN HELPER AUTOMOTIVE from Last 3 Months Results * Optical Coherence Tomography - Optic Nerve - OU - Both Eyes (06/25/2023 1:05 PM ELECTRICIAN HELPER AUTOMOTIVE) Narrative OPHTHALMOLOGY IMAGING EXAM - 06/25/2023 1:16 PM ELECTRICIAN HELPER AUTOMOTIVE OCT device used was [employer]rus . Right Eye Reliability was good. Left Eye Reliability was good. Notes TH; see note Azra Alexander OPHTH TOMOGRAPHY OPHTHALMOLOGY IMAGING EXAM * Optical Coherence Tomography (OCT)-Ophthalmology Image Exam (06/25/2023 1:05 PM ELECTRICIAN HELPER AUTOMOTIVE) Only the most recent of2 resultswithin the time period is included. 06/25/2023 1:02 PM ELECTRICIAN HELPER AUTOMOTIVE Narrative IIMS - 06/25/2023 1:13 PM ELECTRICIAN HELPER AUTOMOTIVE This order has been created and auto-finalized to support the import of images acquired without order. The clinical documentation to support these images can be found on the encounter that produced images. Provider Not In System IMG NON RAD IMAGI NG PROCEDURES IIMS NA * Automated VF - Extended - OU - Both Eyes (06/25/2023 12:14 PM ELECTRICIAN HELPER AUTOMOTIVE) Narrative OPHTHALMOLOGY IMAGING EXAM - 06/25/2023 12:23 PM ELECTRICIAN HELPER AUTOMOTIVE Right Eye Automated visual field device used was [employer]iss. Strategy was SHAWN. Threshold was 24-2. Left Eye Automated visual field device used was [employer]iss. Strategy was SHAWN. Threshold was 24-2. Notes See note Azra Sinclair Stalboelviewarner OPHTH VISUAL FIELD Performing Organization Address City/[facility]/ZIP Co de Phone Number OPHTHALMOLOGY IMAGING EXAM from Last 3 Months Advance Directives For more information, please contact: [phone] Documents on File Type Date Recorded Patient Supervisor Throwing Department Expl anation Advance Directives 04/09/2006 12:00 AM Leg acy document. See document viewer. Care Teams Editor Trade Journal Relationship Specialty Start Date End Date Elsewhere, Pcp PCP - General Family Medicine 01/02/21
--- OUTSIDE RECORDS SUMMARY | 2023-08-22 10:04 | XMS_ITS | Encounter Summary ---
Author Name Unknown Organization [facility] Address [address] [place] [address] Care Team Providers Care Manager Progressive Care Name Role Phone Elsewhere, Pcp Primary Care Provider Unavailabl e Encounter Details Date Type Department Care Team (Late st Contact Info) Description 06/25/2023 1:05 PM OPTIMIZATION ANALYST Ancillary Procedure Department of Ophthalmology Social History Tobacco Use Types Packs/Day Years Used Date Smoking Tobacco: Former Cigarettes 0.5 0 0 02/18/1959 - 02/18/1997 Smokeless Tobacco: Never Alcohol Use Standard Drinks/Week Comments Yes 7 [...] week 04/22/2022 How often do you attend [facility] or sabianist services? Never 04/22/2022 Do you belong to any clubs o r organizations such as scientology groups, unions, fraternal or athletic groups, or [...] Answer Date Recorded PHQ-2 Score 1 04/22/2022 [facility] - Occupational Stress Questionnaire Answer Date Recorded [...] place to sleep or slept in a prison (including now)? No 04/22/2022 Depression Answer Date [...] Date Recorded Dental: Regular Dentist Yes 04/05/20 21 Employment Answer Date Recorded Employment status Retired [...] Orientation Straight 04/05/2021 8: 26 AM CDT documented as of this encounter Plan of Treatment Not on file documented as of this encounter Procedures Procedure Name Priority Date/Time Associated Diagnosis Comments OPHTHALMOLOGY IMAGE EXAM Routine 06/25/2023 1:05 PM OPTIMIZATION ANALYST documented in this encounter Results * Optical Coherence Tomography (OCT)-Ophthalmology Image Exam (06/25/2023 1:05 PM OPTIMIZATION ANALYST) 06/25/2023 1:02 PM OPTIMIZATION ANALYST Narrative IIMS - 06/25/2023 1:13 PM OPTIMIZATION ANALYST This order has been created and auto-finalized to support the import of images acquired without order. The clinical documentation to support these images can be found on the encounter that produced images. Provider Not In System IMG NON RAD IMAGI NG PROCEDURES IIMS NA documented in this encounter Visit Diagnoses Not on filedocumented in this encounter Additional Health Concerns Assessment Noted Time PHQ-9 Depression Total Score: 3 07/26/19 21 1:11 PM OPTIMIZATION ANALYST documented as of this encounter Care Teams Manager Progressive Care Relationship Specialty Start Date End Date Elsewhere, Pcp PCP - General Family Medicine 01/02/21 documented as of this encounter
--- OUTSIDE RECORDS SUMMARY | 2023-08-22 10:04 | XMS_ITS | Encounter Summary ---
Author Name Unknown Organization [facility] Address [address] [place] [address] Care Team Providers Care Model Technician Name Role Phone Elsewhere, Pcp Primary Care Provider Unavailabl e Encounter Details Date Type Department Care Team (Late st Contact Info) Description 09/19/2022 9:10 AM CANAL BOAT OPERATOR Ancillary Procedure Department of Ophthalmology Social History [...] week 04/22/2022 How often do you attend [facility] or druze services? Never 04/22/2022 Do you belong to any clubs o r organizations such as voodoo groups, unions, fraternal or athletic groups, or [...] Answer Date Recorded PHQ-2 Score 1 04/22/2022 [facility] - Occupational [...] place to sleep or slept in a correction (including now)? No 04/22/2022 Depression Answer Date [...] Associated Diagnosis Comments OPHTHALMOLOGY IMAGE EXAM Routine 09/19/2022 9:10 AM CANAL BOAT OPERATOR documented in this encounter Results * Optical Coherence Tomography (OCT)-Ophthalmology Image Exam (09/19/2022 9:10 AM CANAL BOAT OPERATOR) 09/19/2022 9:06 AM CANAL BOAT OPERATOR Narrative IIMS - 09/19/2022 9:18 AM CANAL BOAT OPERATOR This order has been created and auto-finalized [...] Total Score: 3 07/26/19 21 1:11 PM CANAL BOAT OPERATOR documented as of this encounter Care Teams Model Technician Relationship Specialty Start Date End Date Elsewhere, Pcp PCP - General Family Medicine 01/02/21 documented as of this encounter
--- OUTSIDE RECORDS SUMMARY | 2023-08-22 10:04 | XMS_ITS | Encounter Summary ---
Author Name Unknown Organization [facility] Address [address] [place] [address] Care Team Providers Care Packing Line Operator Name Role Phone Elsewhere, Pcp Primary Care Provider Unavailabl e Encounter Details Date Type Department Care Team (Late st Contact Info) Description 09/19/2022 5:50 AM RETAIL SPECIAL EVENT ASSOCIATE Ancillary Procedure Department of Ophthalmology Social History [...] week 04/22/2022 How often do you attend [facility] or denominational services? Never 04/22/2022 Do you belong to any clubs o r organizations such as yazidi groups, unions, fraternal or athletic groups, or [...] Answer Date Recorded PHQ-2 Score 1 04/22/2022 [facility] Occupat ional Health - Occupational [...] place to sleep or slept in a fci (including now)? No 04/22/2022 Depression Answer Date [...] Diagnosis Comments OPHTHALMOLOGY IMAGE EXAM Routine 09/19/2022 5:50 AM RETAIL SPECIAL EVENT ASSOCIATE documented in this encounter Results * Visual Coffey (VF)-Ophthalmology Image Exam (09/19/2022 5:50 AM RETAIL SPECIAL EVENT ASSOCIATE) 09/19/2022 5:49 AM RETAIL SPECIAL EVENT ASSOCIATE Narrative IIMS - 09/19/2022 8:05 AM RETAIL SPECIAL EVENT ASSOCIATE This order has been created and auto-finalized [...] Total Score: 3 07/26/19 21 1:11 PM RETAIL SPECIAL EVENT ASSOCIATE documented as of this encounter Care Teams Packing Line Operator Relationship Specialty Start Date End Date Elsewhere, Pcp PCP - General Family Medicine 01/02/21 documented as of this encounter
--- OUTSIDE RECORDS SUMMARY | 2023-08-22 10:04 | XMS_ITS | Encounter Summary ---
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 Never 04/22/2022 Do you belong to any clubs o r organizations such as episcopal groups, unions, fraternal or athletic groups, or [...] Answer Date Recorded PHQ-2 Score 1 04/22/2022 [facility] Occupat ional Health - Occupational [...] place to sleep or slept in a fdc (including now)? No 04/22/2022 Depression Answer Date [...] AM CDT documented as of this encounter Last Filed Vital Signs Vital Sign Reading Time Taken Comments Blood Pressure 138/38 01/30/2023 11:42 AM CDT Pulse 71 01/30/2023 11:42 AM CDT Temperature - - Respiratory Rate - - Oxygen Saturation - - Inhaled Oxygen Concentration - - Weight 65.2 kg (143 lb 11.8 oz) 023 11:42 AM CDT Height 168.2 cm (5' 6.22) 01/30/2023 1 1:42 AM CDT Body Mass Index 23.05 01/30/2023 11:42 AM CDT documented in this encounter Progress Notes * Adrianne Marsh M.D. - 01/30/2023 11:45 AM CDT SUBJECTIVE 77-year-old woman with CLL, on every 6 month observation, whom I am seeing in follow up. HPI: The patient presented in February, to see for yearly physical. At that time, she was without complaints except for the sensation of having something in her axilla I for the last 6-8 months. As part of the physical, she had basic laboratories drawn and she was found to have a slight elevation her total white cell count of 12.3, 79% of which was lymphocytes. ANC was normal, as were her hemoglobin, MCV, and platelet count. Her chemistry panel, calcium, glucose, creatinine, uric acid and ALT were also normal. TSH was normal. Due to the lymphocytosis, flow cytometry on the peripheral blood was obtained and it was consistent with CLL. As a result, she was referred to Hematology. Leukemia-lymphoma immunophenotyping on February 23, 2020: WBC: 10.7 x 10(9)/L %Lymphs (CBC/automated differential): 69% #Lymphs (CBC/automated differential): 7.4 x 10(9)/L Results: Blasts: Not increased by CD45/side scatter and CD34. B-cells: Monotypic (cytoplasmic) kappa Express: CD19, CD20 (dim), CD22, CD5, CD23, CD200. Do not express: CD10, CD38, CD11c, CD103. Estimated size: 86% gated lymphoid events; 66% total analyzed events Absolute Clonal B-cell count (calculated): 6.4 x 10(9)/L B-cell markers tested: Triage panel: CD10, CD19, CD45 and kappa and lambda surface light chains. B-cell panel: CD5, CD11c, CD19, CD20, CD22, CD23, CD38, CD45, CD103, CD200 and kappa and lambda surface light chains. Cytoplasmic kappa and lambda immunoglobulin light chains. T-cells/NK-cells: No aberrant phenotype by CD3 and CD16. Mrs. Begum has not had any difficulties with syncope, pain or difficulty swallowing, obvious adenopathy, fever, drenching sweats, anorexia, abnormal weight loss, early satiety, abdominal bloating or pain, nausea, vomiting, or changes in bowel or bladder habits. No PND, orthopnea, lower extremity edema, chest pain, chest pressure, shortness of breath, cough, abnormal bleeding or history of thrombotic events, history of autoimmune or connective tissue disorders, or known exposures to hepatitis B,C, or TB. She has not noticed any increased infections. She does have a history of having required Mohs surgery for a basal cell carcinoma. No known family history of hematologic disorders. When I saw her in February of 2020, she clearly did not need any therapy, but she was sent for more specialized testing for her CLL. Labs from 03/15/20: CBC with diff normal except for WBC=13.5, with ALC of 9.71. LFTs, LDH, CRP, beta 2 microglobulin, quantitative serum Ig's, urinalysis were all normal. 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 The level of mutation identified was 6.1%. The IGH V allele identified was 1-8*01. TP53 somatic mutation analysis:negative She was classified as CLL IPI 1, low risk and was observed. An e-consult for the patient was performed by Dr. Capps in May of 2020 in the setting of then recently noted multiple lung nodules, asymmetric density in the lateral right breast, axillary adenopathy and a hepatic mass. The patient ultimately underwent further evaluation. Her mediastinal and axillary LNs were thought likely to be c/wCLL, although not of concern. Imaging of her liver showed a simple cyst and hemangiomas. Evaluationof the breast lesion was not of concern and the asymmetry noted in the breast had been present since at least 2004. For her pulmonary nodules, a repeat Chest CT in 6 months was recommended, Nov, 2020. I have been following her on an every 6 month basis and she has remained without constitutional sx or significant changes in her labs. She has not had any problems with progressive adenopathy, fevers, drenching sweats, anorexia, cardiopulmonary sx, rashes, edema, or GI sx. No early satiety or abnormal weight loss. She has not had any significant infections since I saw her last. She is doing well. She was recently seen by an ENT closer to home for bilateral tinnitus. She says she had a head MRI, which she reports was normal. She will be seeing her avionics installer next week or so and a chest CT is pending. Interim history 01/30/2023 she is feeling well she had a right total knee arthroplasty in October of 2022 she notices some increase in fatigability her weight recorded in April of 2022 was 66.2 kilos currently 65.1. Appetite is good she has had no hospitalizations no infections REVIEW OF SYSTEMS Skin: Positive for change in mole or skin spot. ENT: Positive for difficulty hearing. Cardiovascular: Positive for swelling in the legs or feet. Gastrointestinal: Positive for heartburn. Hematologic: Positive for abnormal lumps or bumps. Musculoskeletal: Positive for pain or stiffness in the joints, back pain, joint swelling and musclepain/stiffness. Neurological: Positive for headaches. The following systems were negative: Constitutional, Eyes, Respiratory, Cardiovascular, Genitourinary, Neurological, Psychiatric Current Outpatient Medications Medication Instructions aspirin [address] tablet 1 tablet, oral, Every morning atorvastatin (LIPITOR) 20 mg tablet TAKE 1 TABLET EVERY DAY calcium carbonate/vitamin D3 (CALCIUM 600 + D,3, ORAL) 1 tablet, oral, Every morning folic acid/multivit-min/lutein (CENTRUM SILVER ORAL) 1 tablet, oral, Every morning naproxen sodium (ALEVE/ANAPROX) 220 mg tablet 2 tablets, oral, As needed, pain nitroglycerin (NITROSTAT) 0.[address] 1 TAB UNDER TONGUE NEEDED FOR CHEST PAIN, NO RELIEF IN 5MIN CALL 911 REPEAT DOSE EVERY 5MIN [id number] IF PAIN PERSIST omeprazole (PRILOSEC) 20 mg, oral, Daily zolpidem (AMBIEN) 5 mg, oral, Bedtime PRN Recent Results (from the past 72 hour(s)) Alkaline Phosphatase Collection Time: 01/30/23 9:23 AM Result Value Alkaline Phosphatase, S 74 AST (Aspartate Aminotransferase) Collection Time: 01/30/23 9:23 AM Result Value Aspartate Aminotransferase (AST), S 23 Calcium, Total Collection Time: 01/30/23 9:23 AM Result Value Calcium, Total, S 9.6 Creatinine with Estimated GFR Collection Time: 01/30/23 9:23 AM Result Value Creatinine 0.68 Estimated GFR (eGFR) 89 Potassium Collection Time: 01/30/23 9:23 AM Result Value Potassium, S 4.4 Sodium Collection Time: 01/30/23 9:23 AM Result Value Sodium, S 142 CBC no call back, reflex T/S HGB <8 Collection Time: 01/30/23 9:23 AM Result Value Hemoglobin 12.8 Hematocrit 40.6 Erythrocytes 4.19 MCV 96.9 RBC Distrib Width 13.1 Platelet Count 203 Leukocytes 20.1 (H) Neutrophils 2.09 Lymphocytes 17.35 (H) Monocytes 0.35 Eosinophils 0.24 Basophils 0.06 Bilirubin, Total Collection Time: 01/30/23 9:23 AM Result Value Bilirubin, Total, S 0.6 LD (Lactate Dehydrogenase) Collection Time: 01/30/23 9:23 AM Result Value Lactate Dehydrogenase (LD), S 210 ALT (Alanine Aminotransferase) Collection Time: 01/30/23 9:23 AM Result Value Alanine Aminotransferase (ALT), S 20 C-Reactive Protein, High Sensitivity Collection Time: 01/30/23 9:23 AM Result Value C-Reactive Protein, High Sens, S 0.9 BP (!) 138/38 (BP Location: Right arm, Patient Position: Sitting, Cuff Size: Regular) Pulse 71 Ht 168.2 cm Wt 65.2 kg BMI 23.05 kg/m?? OBJECTIVE PHYSICAL EXAM Vitals reviewed. Constitutional Appearance: Normal appearance. She is not ill-appearing. Eyes Pupils: Pupils are equal, round, and reactive to light. Cardiovascular Rate and Rhythm: Normal rate and regular rhythm. Heart sounds: Normal heart sounds. Pulmonary Breath sounds: Normal breath sounds. Abdominal Palpations: Abdomen is soft. Musculoskeletal Right lower leg: No edema. Left lower leg: No edema. Skin General: Skin is warm. Neurological General: No focal deficit present. Psychiatric Mood and Affect: Mood normal. Judgment: Judgment normal. No palpable lymphadenopathy cervical axillary inguinal femoral. No hepatosplenomegaly ASSESSMENT / PLAN Rise stage 0 CLL no indications for intervention or further diagnostics. Continued surveillance is indicated. 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
--- OUTSIDE RECORDS SUMMARY | 2023-08-22 10:04 | XMS_ITS | Encounter Summary ---
Author Name Unknown Organization [facility] Address [address] [place] [address] Care Team Providers Care Concrete Carpenter Name Role Phone Elsewhere, Pcp Primary Care Provider Unavailabl e Encounter Details Date Type Department Care Team (Latest Contact Info) Description 06/25/2023 12:30 PM BARREL TURNER Ancillary Procedure Department of Ophthalmology in [place], [place] [address] [place] [address] [place] [phone] Azra Alexander [address] [place] [phone] Glaucoma Open Angle Borderline High Risk Bilateral Social History Tobacco Use Types Packs/Day Years [...] often do you attend chur ch or mormonism services? Never 04/22/2022 Do you belong to any clubs o r organizations such as confucianism groups, unions, fraternal or athletic groups, or [...] Answer Date Recorded PHQ-2 Score 1 04/22/2022 [facility] Questionnaire Answer Date [...] place to sleep or slept in a retirement (including now)? No 04/22/2022 Depression Answer Date [...] Procedure Name Priority Date/Time Associated Diagnosis Comments AUTOMATED VF - EXTENDED - OU - BOTH EYES Routine 06/25/2023 12:14 PM BARREL TURNER Glaucoma Open Angle Borderline High Risk Bilateral documented in this encounter Results * Automated VF - Extended - OU - Both Eyes (06/25/2023 12:14 PM BARREL TURNER) Narrative OPHTHALMOLOGY IMAGING EXAM - 06/25/2023 12:23 PM BARREL TURNER Right Eye Automated visual field device used was [employer]iss. Strategy was SHAWN. Threshold was 24-2. Left Eye Automated visual field device used was [employer]iss. Strategy was SHAWN. Threshold was 24-2. Notes See note Azra Alexander OPHTH VISUAL FIELD OPHTHALMOLOGY IMAGING EXAM documented in this encounter Visit Diagnoses Diagnosis Glaucoma Open Angle Borderline High Risk Bilateral documented in this encounter Additional Health Concerns Assessment Noted Time PHQ-9 Depression Total Score: 3 07/26/19 21 1:11 PM BARREL TURNER documented as of this encounter Care Teams Concrete Carpenter Relationship Specialty Start Date End Date Elsewhere, Pcp PCP - General Family Medicine 01/02/21 documented as of this encounter
--- OUTSIDE RECORDS SUMMARY | 2023-08-22 10:04 | XMS_ITS | Encounter Summary ---
Author Name Unknown Organization [facility] Address [address] [place] [address] Care Team Providers Care Tax Credit Leasing Consultant Name Role Phone Elsewhere, Pcp Primary Care Provider Unavailabl e Encounter Details Date Type Department Care Team (Latest Contact Info) Description 06/25/2023 1:30 PM HYDROGRAPHIC SURVEYOR Ancillary Procedure Department of Ophthalmology in [place], [place] [address] [place] [address] [place] [phone] Azra Alexander [address] [place] [address] Glaucoma Open Angle Borderline High Risk Bilateral [...] often do you attend chur ch or methodist services? Never 04/22/2022 Do you belong to any clubs o r organizations such as spiritism groups, unions, fraternal or athletic groups, or [...] Answer Date Recorded PHQ-2 Score 1 04/22/2022 [facility] Questionnaire Answer Date Recorded [...] place to sleep or slept in a detention (including now)? No 04/22/2022 Depression Answer Date [...] - BOTH EYES Routine 06/25/2023 1:05 PM HYDROGRAPHIC SURVEYOR Glaucoma Open Angle Borderline High Risk Bilateral documented in this encounter Results * Optical Coherence Tomography - Optic Nerve - OU - Both Eyes (06/25/2023 1:05 PM HYDROGRAPHIC SURVEYOR) Narrative OPHTHALMOLOGY IMAGING EXAM - 06/25/2023 1:16 PM HYDROGRAPHIC SURVEYOR OCT device used was [employer] . Right Eye Reliability was good. Left Eye Reliability was good. Notes TH; see note Azra Alexander OPHTH TOMOGRAPHY OPHTHALMOLOGY IMAGING EXAM documented in this encounter Visit Diagnoses Diagnosis Glaucoma Open Angle Borderline High Risk Bilateral documented in this encounter Additional Health Concerns Assessment Noted Time PHQ-9 Depression Total Score: 3 07/26/19 21 1:11 PM HYDROGRAPHIC SURVEYOR documented as of this encounter Care Teams Tax Credit Leasing Consultant Relationship Specialty Start Date End Date Elsewhere, Pcp PCP - General Family Medicine 01/02/21 documented as of this encounter
--- OUTSIDE RECORDS SUMMARY | 2023-08-22 10:04 | XMS_ITS ---
Author Name Unknown Organization [facility] Address [address] [place] [address] Care Team Providers Care Clip Baker Name Role Phone Unavailable Unavailable Unavailable Surgery Details Not on file Complications Check Surgery Details section. Procedure Estimated Blood Loss Check Surgery Details section. Procedure Findings Check Surgery Details section. Procedure Specimens Taken Check Surgery Details section.
--- OUTSIDE RECORDS SUMMARY | 2023-08-22 10:04 | XMS_ITS | Encounter Summary ---
Author Name Unknown Organization [facility] Address [address] [place] [address] Care Team Providers Care Humidifier Attendant Name Role Phone Elsewhere, Pcp Primary Care Provider Unavailabl e Encounter Details Date Type Department Care Team (Late st Contact Info) Description 06/25/2023 10:20 AM TYPE DISK QUALITY CONTROL SUPERVISOR Ancillary Procedure Department of Ophthalmology Social History [...] week 04/22/2022 How often do you attend [facility] or congregational services? Never 04/22/2022 Do you belong to any clubs o r organizations such as islam groups, unions, fraternal or athletic groups, or [...] Answer Date Recorded PHQ-2 Score 1 04/22/2022 [facility] of Occupat ional Health - Occupational Stress [...] place to sleep or slept in a custodial (including now)? No 04/22/2022 Depression Answer Date [...] Diagnosis Comments OPHTHALMOLOGY IMAGE EXAM Routine 06/25/2023 10:20 AM TYPE DISK QUALITY CONTROL SUPERVISOR documented in this encounter Results * Visual Coffey (VF)-Ophthalmology Image Exam (06/25/2023 10:20 AM TYPE DISK QUALITY CONTROL SUPERVISOR) 06/25/2023 10:1 9 AM TYPE DISK QUALITY CONTROL SUPERVISOR Narrative IIMS - 06/25/2023 12:37 PM TYPE DISK QUALITY CONTROL SUPERVISOR This order has been created and auto-finalized [...] Total Score: 3 07/26/19 21 1:11 PM TYPE DISK QUALITY CONTROL SUPERVISOR documented as of this encounter Care Teams Humidifier Attendant Relationship Specialty Start Date End Date Elsewhere, Pcp PCP - General Family Medicine 01/02/21 documented as of this encounter
--- OUTSIDE RECORDS SUMMARY | 2023-08-22 10:04 | XMS_ITS | Encounter Summary ---
Author Name Unknown Organization [facility] Address [address] [place] [address] Care Team Providers Care Bill Checker Name Role Phone Elsewhere, Pcp Primary Care Provider Unavailabl e Reason for Referral * Outpatient (Routine) - Authorized Specialty Diagnoses / Procedures Referred By Jalen diaz Referred To Contact Ophthalmology Azra Alexander [address] [place] [address] [facility] Referral ID Status Reason Start Date Expiration Date V isits Requested Visits Authorized [id number] Authorized 06/26/2023 06/25/2026 1 1 NING TEAM MEMBER Reason for Visit * Reason Comments Glaucoma * Outpatient (Routine) - Closed Specialty Diagnoses / Procedures Referred By Jalen diaz Referred To Contact Ophthalmology Azra Alexander [address] [place] [address] [facility] Referral ID Status Reason Start Date Expiration Date Visits Re quested Visits Authorized [id number] Closed 09/21/2022 09/20/2025 1 1 Encounter Details Date Type Department Care Team (Latest Contact Info) Description 06/25/2023 1:45 PM CLEANING TEAM MEMBER Office Visit Department of Ophthalmology in [place], [place] [address] [place] [phone] Azra Alexander [address] [place] [address] Glaucoma Open Angle Borderline High Risk Bilateral (Primary Dx) Social History Tobacco Use Types Packs/Day Years [...] 04/22/2022 How often do you attend chur or samaritan services? Never 04/22/2022 Do you belong to any clubs o r organizations such as sabianist groups, unions, fraternal or athletic groups, or [...] Date Recorded PHQ-2 Score 1 04/22/2022 [facility] of Occupat ional Health - Occupational Stress [...] place to sleep or slept in a residential (including now)? No 04/22/2022 Depression Answer Date [...] AM CDT documented as of this encounter Progress Notes * Azra Alexander O.D. - 06/25/2023 1:45 PM CST #1 Glaucoma suspect based on cupping, high risk Tmax 18 both, increased c/d with normal avf and oct both, + family history MGM? Pachy 525/525 no drops 06/2023 Tomy; Left eye scatter, variable. Right eye scatter. OCT; Re green. Le susp thin temporally. RNFL 86/80. Left eye flagged, variable. Re variable but stable per gpa. RTC 6 mo with tomy and oct. Will continue to observe off meds. No etiology found for blur on the right eye We discussed her vf and oct/variable in the past #2 Pseudophakia, both 06/2023 PCO left eye observe #3 hyperopia/astigmatism/presbyopia 03/08 had refraction #4 Dermatochalasis, both eyes Per Dr. Schroeder 08/2018: Patient noticed she sees better when lifting her eyebrows, but does not have obstruction of vision while reading or when driving. Visual field testing shows obstruction involving central 20 degree vision of both eyes that improves by roughly 20 degrees with manual lid elevation. She has no history of eyelid surgery or dry eyes. At this point, blepharoplasty would be considered aesthetic as dermatochalasis is not visually significant for patient's ADLs or by MRD measurements. Patient does not feel bothered by appearance, andwould not consider surgery unless she feels her vision is more affected. Discussed general facts of upper lid surgery. Patient will return as needed or request referral if she feels the vision blockage from her lids is getting worse. #5 Myokymia, right Discussed etiology, cold compress prn #6 chronic lymphocytic leukemia, diagnosed approx 2 +years ago #7 Dry eye Try Refresh Plus or Systane Complete NING TEAM MEMBER documented in this encounter Plan of Treatment Scheduled Orders Name Type Priority Associated Diagnoses Orde r Schedule Optical Coherence Tomography - Optic Nerve - OU - Both Eyes Ophthalmology Routine Glaucoma Open Angle Borderline High Risk Bilateral Expected: 12/26/2023 (Approximate), Expires: 09/24/2024 Automated VF - Extended - OU - Both Eyes Ophthalmology Routine Glaucoma Open Angle Borderline High Risk Bilateral Expected: 12/26/2023 (Approximate), Expires: 09/24/2024 Scheduled Referrals Name Type Priority Associated Diagnoses Order Schedule Ophthalmology office visit (clinic) Outpatient Referral Routine Expected: 12/26/2023 (Approximate), Expires: 09/24/2024 documented as of this encounter Visit Diagnoses Diagnosis Glaucoma Open Angle Borderline High Risk Bilateral- Primary documented in this encounter Additional Health Concerns Assessment Noted Time PHQ-9 Depression Total Score: 3 07/26/19 21 1:11 PM CLEANING TEAM MEMBER documented as of this encounter Care Teams Bill Checker Relationship Specialty Start Date End Date Elsewhere, Pcp PCP - General Family Medicine 01/02/21 documented as of this encounter
--- OUTSIDE RECORDS SUMMARY | 2023-08-22 10:04 | XMS_ITS | Referral Summary ---
Author Name Unknown Organization [facility] Address [address] [place] [address] Care Team Providers Care Hydrological Technical Officer Name Role Phone Elsewhere, Pcp Primary Care Provider Unavailabl e Source Comments Patient records contain information from all sites at [facility]. For routine questions regarding patient records, call [phone] during business hours, M-F 8:00 AM - 5:00 PM Central Time. Record requests for emergency care only can be directed to [phone] at any time.[facility] Encounters Date Type Department Care Team Description 06/25/2023 1:05 PM FINANCIAL REPORTING SPECIALIST Ancillary Procedure Department of Ophthalmology 06/25/2023 10:20 AM FINANCIAL REPORTING SPECIALIST Ancillary Procedure Department of Ophthalmology 06/25/2023 1:45 PM FINANCIAL REPORTING SPECIALIST Office Visit Department of Ophthalmology in [place], [place] [address] Azra Alexander Glaucoma Open Angle Borderline High Risk Bilateral (Primary Dx) 06/25/2023 1:30 PM FINANCIAL REPORTING SPECIALIST Ancillary Procedure Department of Ophthalmology in [place], [place] [address] Azra Alexander Glaucoma Open Angle Borderline High Risk Bilateral 06/25/2023 12:30 PM FINANCIAL REPORTING SPECIALIST Ancillary Procedure Department of Ophthalmology in [place], [place] [address] Azra Alexander Glaucoma Open Angle Borderline High Risk Bilateral from Last 3 Months Allergies Active Allergy Reactions Criticality Noted Date [...] 5MIN CALL 911 REPEAT DOSE EVERY 5MIN [id number] IF PAIN PERSIST 25 tablet 1 04/12/2020 [...] 06/29/2008 Goiter 06/29/2008 Mitral Valve Prolapse 04/13/2003 Immunizations Name Administration Dates Next Due H1N1 [...] quad (FLUZONE/FLUARIX) (6 months and older)(PF) 04/27/2019 Social History Tobacco Use Types Packs/Day Years [...] How often do you attend chur or yarsani services? Never 04/22/2022 Do you belong to any clubs o r organizations such as mu-ism groups, unions, fraternal or athletic groups, or [...] Answer Date Recorded PHQ-2 Score 1 04/22/2022 [facility] of Occupat ional Health - Occupational [...] place to sleep or slept in a care home (including now)? No 04/22/2022 Depression Answer Date [...] 01/30/2023 11:42 AM CDT Plan of Treatment Not on file Medical Devices Implanted Type Area Claim Professional Device Identifier Shelf Expiration Date Model / Serial / Lot Small Frag-Screw Remy 3.5x20 - [employer] [id number] Implanted:Qty: 1 on 09/12/2005 Hardware e.g. pins/screws/ rods Right: Toes Depuy Synthes Description:Device Manufactu [facility] - Synthes. Device Status Text - [id number]. Toe right big Procedures Procedure Name Priority Date/Time Associated Diagnosis Comments OPTICAL COHERENCE TOMOGRAPHY (OCT) - OPTIC NERVE - OU - BOTH EYES Routine 06/25/2023 1:05 PM FINANCIAL REPORTING SPECIALIST Glaucoma Open Angle Borderline High Risk Bilateral OPHTHALMOLOGY IMAGE EXAM Routine 06/25/2023 1:05 PM FINANCIAL REPORTING SPECIALIST AUTOMATED VF - EXTENDED - OU - BOTH EYES Routine 06/25/2023 12:14 PM FINANCIAL REPORTING SPECIALIST Glaucoma Open Angle Borderline High Risk Bilateral OPHTHALMOLOGY IMAGE EXAM Routine 06/25/2023 10:20 AM FINANCIAL REPORTING SPECIALIST from Last 3 Months Results * Optical Coherence Tomography - Optic Nerve - OU - Both Eyes (06/25/2023 1:05 PM FINANCIAL REPORTING SPECIALIST) Narrative OPHTHALMOLOGY IMAGING EXAM - 06/25/2023 1:16 PM FINANCIAL REPORTING SPECIALIST OCT device used was [employer] . Right Eye Reliability was good. Left Eye Reliability was good. Notes TH; see note Azra Venturalboelvier OPHTH TOMOGRAPHY Performing Organization Address [facility] de Phone Number OPHTHALMOLOGY IMAGING EXAM * Optical Coherence Tomography (OCT)-Ophthalmology Image Exam (06/25/2023 1:05 PM FINANCIAL REPORTING SPECIALIST) Only the most recent of2 resultswithin the time period is included. 06/25/2023 1:02 PM FINANCIAL REPORTING SPECIALIST Narrative IIMS - 06/25/2023 1:13 PM FINANCIAL REPORTING SPECIALIST This order has been created and auto-finalized to support the import of images acquired without order. The clinical documentation to support these images can be found on the encounter that produced images. Provider Not In System IMG NON RAD IMAGI NG PROCEDURES Performing Organization Address [facility] de Phone Number IIMS NA * Automated VF - Extended - OU - Both Eyes (06/25/2023 12:14 PM FINANCIAL REPORTING SPECIALIST) Narrative OPHTHALMOLOGY IMAGING EXAM - 06/25/2023 12:23 PM FINANCIAL REPORTING SPECIALIST Right Eye Automated visual field device used was Zeiss. Strategy was SHAWN. Threshold was 24-2. Left Eye Automated visual field device used was [employer]iss. Strategy was SHAWN. Threshold was 24-2. Notes See note Azra Sinclair Stalboelvier OPHTH VISUAL FIELD Performing Organization Address [facility] de Phone Number OPHTHALMOLOGY IMAGING EXAM from Last 3 Months Advance Directives For more information, please contact: [phone] Documents on File Type Date Recorded Patient Buyer Assistant Expl anation Advance Directives 04/09/2006 12:00 AM Leg acy document. See document viewer. Care Teams Hydrological Technical Officer Relationship Specialty Start Date End Date Elsewhere, Pcp PCP - General Family Medicine 01/02/21
--- OUTSIDE RECORDS SUMMARY | 2023-08-22 10:04 | XMS_ITS | Encounter Summary ---
Author Name Unknown Organization [facility] Address [address] [place] [address] Care Team Providers Care Dump Motor Operator Name Role Phone Elsewhere, Pcp Primary Care Provider Unavailabl e Reason for Visit * Appointment Request (Routine) - Closed Specialty Diagnoses / Procedures Referred By Contac t Referred To Contact Dermatology Diagnoses Screening Examination Skin Cancer Referral ID Status Reason Start Date Expiration Date Visits Re quested Visits Authorized [id number] Closed 08/21/2022 08/21/2023 1 1 Encounter Details Date Type Department Care Team (Late st Contact Info) Description 10/09/2022 11:00 AM CDT Office Visit Department of Dermatology in [place], [place] [address] [place] [phone] Johana Shearer APRN, C.N.P., D.N.P. [address] [place] [phone] Keratosis Seborrheic (Primary Dx); Screening Examination Skin Cancer; Dermatoheliosis Discharge Disposition: Home or Self Care Social History Tobacco Use Types Packs/Day Years [...] How often do you attend chur or baptist services? Never 04/22/2022 Do you belong to any clubs o r organizations such as yarsanism groups, unions, fraternal or athletic groups, or [...] Answer Date Recorded PHQ-2 Score 1 04/22/2022 [facility] [place] of Occupat ional Health - Occupational Stress [...] AM CDT documented as of this encounter Consult Notes * Johana Shearer APRN, C.N.P., D.N.P. - 10/09/2022 11:00 AM CDT REFERRED BY No ref. provider found CHIEF COMPLAINT/REASON FOR VISIT History of nonmelanoma skin cancer HISTORY OF PRESENT ILLNESS Ms. Haley Begum is a pleasant 77 y.o. female who presents today for a full skin cancer screeningexamination. She has a history of nonmelanoma skin cancer. No family history of skin cancer. The patient has a history of chronic lymphocytic leukemia, diagnosed with peripheral blood smear 02/23/2020, and continues on observation-only status at present. She has a few dark spots on the left cheek that are bothersome to her. Allergies Allergen Reactions Erythromycin Base GI intolerance Penicillins Itching verified PAST DERMATOLOGIC HISTORY 1. Basal cell carcinoma, left nasal ala, status post Mohs micrographic surgery, 12/02/2017 FAMILY DERMATOLOGIC HISTORY Negative for skin cancer PHYSICAL EXAM General: Awake, alert, in no acute distress, and with appropriate affect. Eyes: No scleral injection or icterus. No eyelid abnormalities. Lymph: No lower extremity edema. Skin: I have examined the scalp, face, neck, chest, abdomen, back, bilateral upper extremities, andbilateral lower extremities. Roman skin type . There is evidence of dermatoheliosis in sun-exposed areas. Throughout the face and body are waxy brown, stuck on appearing papules. On the trunk and extremities are red dome-shaped papules consistent with mcgrath angiomas. On the left nasal ala opli well-healed surgical scar without evidence of repigmentation, nodularity, or tenderness to palpation. IMPRESSION/REPORT/PLAN #1 Skin cancer screening examination #2 Dermatoheliosis #3 History of nonmelanoma skin cancer Sun protection and sun avoidance were reviewed with the patient. Educational materials were provided regarding skin self-examination, the warning signs and symptoms of skin cancer, and the proper useof sunscreens. I would recommend a full skin cancer screening examination with an appropriately trained clinician every 12 months. #4 Seborrheic keratosis #5 Multiple nevi #6 Mcgrath angiomas The lesions of concern involving the scalp are consistent with seborrheic keratosis. The benign nature of the skin lesion(s) was discussed with the patient. No treatment is required. I recommend continued observation. Should symptoms or changes develop related to this condition, I would recommend areturn visit for reassessment. #7 Inflamed seborrheic keratosis A total of 2 seborrheic keratosis were treated with cryotherapy on the left cheek and left church. After explaining the procedure, discussing the associated risks, benefits, and alternatives, and obtaining verbal informed consent, the lesion(s) underwent treatment with liquid nitrogen cryotherapy in the standard fashion. Wound care was discussed. PATIENT EDUCATION Ready to learn. No apparent learning barriers were identified. Learning preferences include listening. Explained diagnosis and treatment plan; patient/guardian of patient expressed understanding of the content. documented in this encounter Plan of Treatment Not on file documented as of this encounter Visit Diagnoses Diagnosis Keratosis Seborrheic- Primary Screening Examination Skin Cancer Dermatoheliosis documented in this encounter Additional Health Concerns Assessment Noted Time PHQ-9 Depression Total Score: 3 07/26/19 21 1:11 PM MEAT AND SEAFOOD CLERK documented as of this encounter Care Teams Dump Motor Operator Relationship Specialty Start Date End Date Elsewhere, Pcp PCP - General Family Medicine 01/02/21 documented as of this encounter
--- OUTSIDE RECORDS SUMMARY | 2023-08-22 10:04 | XMS_ITS | Encounter Summary ---
Author Name Unknown Organization [facility] Address [address] [place] [address] Care Team Providers Care Hadoop Analyst Name Role Phone Elsewhere, Pcp Primary Care Provider Unavailabl e Encounter Details Date Type Department Care Team (Latest Contact Info) Description 01/30/2023 9:00 AM CDT - 01/30/2023 11:59 PM CDT Hospital Encounter Department of Laboratory Medicine and Pathology, [facility], in [place], [place] [address] [place] [address] Vanessa Salmeron M.D. [address] [place] [address] Leukemia 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) Discharge Disposition: Home or Self Care Social [...] How often do you attend chur or confucianist services? Never 04/22/2022 Do you belong to any clubs o r organizations such as pentecostal groups, unions, fraternal or athletic groups, or [...] Answer Date Recorded PHQ-2 Score 1 04/22/2022 [facility] - Occupational Stress [...] place to sleep or slept in a group home (including now)? No 04/22/2022 Depression Answer [...] AM CDT documented as of this encounter Medications at Time of Discharge Medication Sig Dispensed Refills Start Date End Date aspirin [address] tablet Take 1 tablet by mouth every morning. 0 04/22/2014 atorvastatin (LIPITOR) 20 mg tablet TAKE 1 TABLET EVERY DAY 90 tablet 3 02/07/2022 calcium carbonate/vitamin D3 (CALCIUM 600 + D,3, ORAL) Take 1 tablet by mouth every morning. 0 10/17/2014 folic acid/multivit-min/lutein (CENTRUM SILVER ORAL) Take 1 tablet by mouth every morning. 0 04/22/2014 naproxen sodium (ALEVE/ANAPROX) 220 mg tablet Take 2 tablets by mouth as needed. pain 0 06/29/2008 nitroglycerin (NITROSTAT) 0.[address] 1 TAB UNDER TONGUE NEEDED FOR CHEST PAIN, NO RELIEF IN 5MIN CALL 911 REPEAT DOSE EVERY 5MIN [id number] IF PAIN PERSIST 25 tablet 1 04/12/2020 omeprazole (PriLOSEC) [address] capsule Take 1 capsule (20 mg total) by mouth daily. 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) ASPARTATE AMINOTRANSFERASE (AST), S/P Routine 01/30/2023 9:23 AM CDT Leukemia 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) SODIUM, S/P Routine 01/30/2023 9:23 AM CDT Leukemia 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) POTASSIUM, S/P Routine 01/30/2023 9:23 AM CDT Leukemia 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) ALKALINE PHOSPHATASE, S/P Routine 01/30/2023 9:23 AM CDT Leukemia 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) LACTATE DEHYDROGENASE (LD), S Routine 01/30/2023 9:23 AM CDT Leukemia 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) IMMUNOGLOBULIN G (IGG), S Routine 01/30/2023 9:23 AM CDT Leukemia 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) CREATININE WITH EGFR, S/P Routine 01/30/2023 9:23 AM CDT Leukemia 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) CALCIUM, TOT, S/P Routine 01/30/2023 9:2 3 AM CDT Leukemia 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 LAB BLOOD ADD-ON [facility] [address] [place] [address], [facility] [address] [place] [address] * ALT (Alanine Aminotransferase) (01/30/2023 9:23 AM CDT) Alanine Aminotransferase (ALT), S 20 7 - 45 U/L 01/30/2023 10:34 AM CDT DTL Blood (Blood, Venous) 01/30/2023 9:23 AM CDT 01/30/2023 10:00 AM CDT Vanessa Salmeron M.D. LAB BLOOD ADD-ON Performing Organization Address City/[facility]/ZIP Co de Phone Number [facility] [address] [place] [address], [facility] [address] [place] [address] * LD (Lactate Dehydrogenase) (01/30/2023 9:23 AM CDT) Lactate Dehydrogenase (LD), S 210 122 - 222 U/L 01/30/2023 10:34 AM CDT DTL Blood (Blood, Venous) 01/30/2023 9:23 AM CDT 01/30/2023 10:00 AM CDT Vanessa Salmeron M.D. LAB BLOOD NON ADD- ON Performing Organization Address City/[facility]/ZIP Co de Phone Number [facility] [address] [place] [address], [facility] [address] [place] [address] * Bilirubin, Total (01/30/2023 9:23 AM CDT) Bilirubin, Total, S 0.6 <=1.2 mg/dL 01/30/2023 10:34 AM CDT DT Blood (Blood, Venous) 01/30/2023 9:23 AM CDT 01/30/2023 10:00 AM CDT Vanessa Salmeron M.D. LAB BLOOD ADD-ON Performing Organization Address City/[facility]/ZIP Co de Phone Number [facility] [address] [place] [address], [facility] [address] [place] [address] * (ABNORMAL) Immunoglobulin G (IgG) (01/30/2023 9:23 AM CDT) Immunoglobulin G (IgG), S 722(L) 767 - 1590 mg/dL 01/30/2023 1:58 PM CDT [facility] Blood (Blood, Venous) 01/30/2023 9:23 AM CDT 01/30/2023 1:25 PM CDT Vanessa Salmeron M.D. LAB BLOOD ADD-ON [facility] [address] [place] [address] [facility] [address] [place] [address] * (ABNORMAL) CBC no call back, reflex T/S HGB <8 (01/30/2023 9:23 AM CDT) Hemoglobin 12.8 11.6 - 15.0 g/dL 01/30/2023 10:02 AM CDT DTL Hematocrit 40.6 35.5 - 44.9 % 01/30/2023 10:02 AM CDT DTL Erythrocytes 4.19 3.92 - 5.13 x10(12)/L 01/30/2023 10:02 AM CDT DTL MCV 96.9 78.2 - 97.9 fL 01/30/2023 10:02 AM CDT DTL RBC Distrib Width 13.1 12.2 - 16.1 % 01/30/2023 10:02 AM CDT DTL Platelet Count 203 157 - 371 x10(9)/L 01/30/2023 10:02 AM CDT DTL Leukocytes 20.1(H) 3.4 - 9.6 x10(9)/L 01/30/2023 10:02 AM CDT DTL Neutrophils 2.09 1.56 - 6.45 x10(9)/L 01/30/2023 10:40 AM CDT DTL Comment:Rechecked Lymphocytes 17.35(H) 0.95 - 3.07 x10(9)/L 01/30/2023 10:40 AM CDT DTL Monocytes 0.35 0.26 - 0.81 x10(9)/L 01/30/2023 10:40 AM CDT DTL Eosinophils 0.24 0.03 - 0.48 x10(9)/L 01/30/2023 10:40 AM CDT DTL Basophils 0.06 0.01 - 0.08 x10(9)/L 01/30/2023 10:40 AM CDT DTL Blood (Blood, Venous) 01/30/2023 9:23 AM CDT 01/30/2023 9:50 AM CDT Vanessa Salmeron M.D. LAB BLOOD NON ADD- ON [facility] [address] [place], [place] [address] [place] [address] [address] [place] [address] * Sodium (01/30/2023 9:23 AM CDT) Sodium, S 142 135 - 145 mmol/L 01/30/2023 10:34 AM CDT DTL Blood (Blood, Venous) 01/30/2023 9:23 AM CDT 01/30/2023 10:00 AM CDT Vanessa Salmeron M.D. LAB BLOOD ADD-ON Performing Organization Address City/[facility]/ZIP Co de Phone Number [facility] [address] [place], [place] [phone] [place] [address] [address] [place] [address] * Potassium (01/30/2023 9:23 AM CDT) Potassium, S 4.4 3.6 - 5.2 mmol/L 01/30/2023 10:34 AM CDT DTL Blood (Blood, Venous) 01/30/2023 9:23 AM CDT 01/30/2023 10:00 AM CDT Vanessa Salmeron M.D. LAB BLOOD ADD-ON [facility] [address] [place], [place] [phone] [place] [address] [address] [place] [address] * Creatinine with Estimated GFR (01/30/2023 9:23 AM CDT) Creatinine 0.68 0.59 - 1.04 mg/dL 01/30/2023 10:34 AM CDT DTL Estimated GFR (eGFR) 89 >=60 mL/min/BSA 01/30/2023 10:34 AM CDT DTL Comment: Estimated GFR calculated using the 2020 CKD_EPI creatinine equation. Blood (Blood, Venous) 01/30/2023 9:23 AM CDT 01/30/2023 10:00 AM CDT Vanessa Salmeron M.D. LAB BLOOD ADD-ON [facility] [address] [place], [place] [phone] [place] [address] [address] [place] [address] * Calcium, Total (01/30/2023 9:23 AM CDT) Calcium, Total, S 9.6 8.8 - 10.2 mg/dL 01/30/2023 10:34 AM CDT DT Blood (Blood, Venous) 01/30/2023 9:23 AM CDT 01/30/2023 10:00 AM CDT Vanessa Salmeron M.D. LAB BLOOD ADD-ON [facility] [address] [place], [place] [address] [place] [address] [address] [place] [address] * AST (Aspartate Aminotransferase) (01/30/2023 9:23 AM CDT) Aspartate Aminotransferase (AST), S 23 8 - 43 U/L 01/30/2023 10:34 AM CDT DT Blood (Blood, Venous) 01/30/2023 9:23 AM CDT 01/30/2023 10:00 AM CDT Vanessa Salmeron M.D. LAB BLOOD ADD-ON Performing Organization Address City/[facility]/ZIP Co de Phone Number [facility] [address] [place], [place] [address] [address] [place] [address] * Alkaline Phosphatase (01/30/2023 9:23 AM CDT) Alkaline Phosphatase, S 74 35 - 104 U/L 01/30/2023 10:34 AM CDT DTL Blood (Blood, Venous) 01/30/2023 9:23 AM CDT 01/30/2023 10:00 AM CDT Vanessa Salmeron M.D. 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
--- OUTSIDE RECORDS SUMMARY | 2023-08-22 10:04 | XMS_ITS | Encounter Summary ---
Author Name Unknown Organization [facility] Address [address] [place] [address] Care Team Providers Care Lunchroom Mother Name Role Phone Elsewhere, Pcp Primary Care Provider Unavailabl e Reason for Visit * Reason Onset Date Comments Pre-visit Intake 10/08/2022 Encounter Details Date Type Department Care Team (Latest Contact Info) Description 10/08/2022 8:00 AM CDT Clinical Communication Virtual Review in [place], [place] [address] [place] [address] Pre-visit Intake Social History Tobacco Use Types Packs/Day Years [...] How often do you attend chur or zoroastrian services? Never 04/22/2022 Do you belong to any clubs o r organizations such as pentecostalism groups, unions, fraternal or athletic groups, or [...] Date Recorded PHQ-2 Score 1 04/22/2022 [facility] - Occupational [...] documented as of this encounter Visit Diagnoses Not on filedocumented in this encounter Additional Health Concerns Assessment Noted Time PHQ-9 Depression Total Score: 3 07/26/19 21 1:11 PM GLASS RIBBON MACHINE OPERATOR documented as of this encounter Care Teams Lunchroom Mother Relationship Specialty Start Date End Date Elsewhere, Pcp PCP - General Family Medicine 01/02/21 documented as of this encounter
--- OUTSIDE RECORDS SUMMARY | 2023-08-22 10:05 | XMS_ITS | Encounter Summary ---
Author Name Unknown Organization [facility] Address [address] [place] [address] Care Team Providers Care Neonatal Nurse Practitioner Name Role Phone Elsewhere, Pcp Primary Care Provider Unavailabl e Encounter Details Date Type Department Care Team (Late st Contact Info) Description 04/22/2014 Historical Ophthalmology [facility] Kavon Perales O.D. [address] [place] [address] Social History Tobacco Use Types Packs/Day Years Used Date Smoking Tobacco: Never Assessed Sex and Gender Information Value Date Recorded Sex Assigned at Female 04/05/2021 8:26 AM CDT Gender Identity Female 04/05/2021 8:26 AM CDT Sexual Orientation Straight 04/05/2021 8: 26 AM CDT documented as of this encounter Progress Notes * Kavon Perales O.D. - 04/22/2014 2:23 PM CDT Contact Lens Exam MULTI-VISIT DOCUMENT This document contains multiple patient visits and is available for review in Document Viewer. CDM Reports - EYECL Id: [id number] Status: Fnl documented in this encounter Plan of Treatment Not on file documented as of this encounter Visit Diagnoses Not on filedocumented in this encounter Care Teams Neonatal Nurse Practitioner Relationship Specialty Start Date End Date Elsewhere, Pcp PCP - General Family Medicine 01/02/21 documented as of this encounter
--- OUTSIDE RECORDS SUMMARY | 2023-08-22 10:05 | XMS_ITS | Encounter Summary ---
Author Name Unknown Organization [facility] Address [address] [place] [address] Care Team Providers Care Barking Machine Feeder Name Role Phone Elsewhere, Pcp Primary Care Provider Unavailabl e Encounter Details Date Type Department Care Team (Late st Contact Info) Description 04/13/2003 Historical Ophthalmology [facility] Tyler Woody M.D. Social History Tobacco Use Types Packs/Day Years Used Date Smoking Tobacco: Never Assessed Sex and Gender Information Value Date Recorded Sex Assigned at Female 04/05/2021 8:26 AM CDT Gender Identity Female 04/05/2021 8:26 AM CDT Sexual Orientation Straight 04/05/2021 8: 26 AM CDT documented as of this encounter Progress Notes * Tyler Woody M.D. - 04/13/2003 12:00 AM CDT Eye General CHIEF COMPLAINT Routine eye exam HISTORY OF PRESENT ILLNESS Here for routine eye exam. Has floaters for years, notes no changes. Notices when reading at near it takes longer to refocus when looking to the distance. No other complaints or worries. IMPRESSION / REPORT / PLAN #1 Hyperopia, presbyopia Rx as above, increase reading segs DIAGNOSIS #1 Hyperopia, presbyopia CDM Reports - EYEGEN Id: [id number] Status: Fnl documented in this encounter Plan of Treatment Not on file documented as of this encounter Visit Diagnoses Not on filedocumented in this encounter Care Teams Barking Machine Feeder Relationship Specialty Start Date End Date Elsewhere, Pcp PCP - General Family Medicine 01/02/21 documented as of this encounter
--- OUTSIDE RECORDS SUMMARY | 2023-08-22 10:05 | XMS_ITS | Encounter Summary ---
Author Name Unknown Organization [facility] Address [address] [place] [address] Care Team Providers Care Grain Commodity Manager Name Role Phone Elsewhere, Pcp Primary Care Provider Unavailabl e Encounter Details Date Type Department Care Team (Late st Contact Info) Description 11/24/2015 Historical Ophthalmology [facility] Trish Granda M.D. [address] [address] Social History Tobacco Use Types Packs/Day Years Used Date Smoking Tobacco: Never Assessed Sex and Gender Information Value Date Recorded Sex Assigned at Female 04/05/2021 8:26 AM CDT Gender Identity Female 04/05/2021 8:26 AM CDT Sexual Orientation Straight 04/05/2021 8: 26 AM CDT documented as of this encounter Progress Notes * Trish Granda M.D. - 11/24/2015 3:25 PM CDT Eye Subsequent Visit HISTORY OF PRESENT ILLNESS Here for New Rx CDM Reports - EYESV Id: [id number] Status: Fnl documented in this encounter Plan of Treatment Not on file documented as of this encounter Visit Diagnoses Not on filedocumented in this encounter Care Teams Grain Commodity Manager Relationship Specialty Start Date End Date Elsewhere, Pcp PCP - General Family Medicine 01/02/21 documented as of this encounter
--- OUTSIDE RECORDS SUMMARY | 2023-08-22 10:05 | XMS_ITS | Encounter Summary ---
Author Name Unknown Organization [facility] Address [address] [place] [address] Care Team Providers Care Civil Structural Designer Name Role Phone Elsewhere, Pcp Primary Care Provider Unavailabl e Encounter Details Date Type Department Care Team (Late st Contact Info) Description 10/11/2015 Historical Ophthalmology [facility] Trish Granda M.D. [address] [phone] Social History Tobacco Use Types Packs/Day Years Used Date Smoking Tobacco: Never Assessed Sex and Gender Information Value Date Recorded Sex Assigned at Female 04/05/2021 8:26 AM CDT Gender Identity Female 04/05/2021 8:26 AM CDT Sexual Orientation Straight 04/05/2021 8: 26 AM CDT documented as of this encounter Progress Notes * Trish Granda M.D. - 10/11/2015 12:29 PM CDT Eye General CHIEF COMPLAINT Glaucoma HISTORY OF PRESENT ILLNESS Vision; decreased since her last visit; the mid- vision; no eye pain but pressure left eye at times. IMPRESSION / REPORT / PLAN #1 Glaucoma suspect based on cupping Tmax 18 both, increased c/d with normal avf and oct both, + family history MGM? Pachy 525/525 no drops VF : right eye normal , left eye nromal OCT : right eye normal , left eye normal , avg RNFL 85/84 , SS 7/7 f/u yearly with team tomy/oct #2 Cataracts, both eyes Plan: patient needs new refraction. #3 Refractive error DIAGNOSIS #1 Glaucoma suspect based on cupping #2 Cataracts, both eyes #3 Refractive error CDM Reports - EYEGEN Id: [id number] Status: Fnl documented in this encounter Plan of Treatment Not on file documented as of this encounter Visit Diagnoses Not on filedocumented in this encounter Care Teams Civil Structural Designer Relationship Specialty Start Date End Date Elsewhere, Pcp PCP - General Family Medicine 01/02/21 documented as of this encounter
--- OUTSIDE RECORDS SUMMARY | 2023-08-22 10:05 | XMS_ITS | Encounter Summary ---
Author Name Unknown Organization [facility] Address [address] [place] [address] Care Team Providers Care Entrepreneur Name Role Phone Elsewhere, Pcp Primary Care Provider Unavailabl e Encounter Details Date Type Department Care Team (Late st Contact Info) Description 11/24/2015 Historical Ophthalmology [facility] Isael So Social History Tobacco Use Types Packs/Day Years Used Date Smoking Tobacco: Never Assessed Sex and Gender Information Value Date Recorded Sex Assigned at Female 04/05/2021 8:26 AM CDT Gender Identity Female 04/05/2021 8:26 AM CDT Sexual Orientation Straight 04/05/2021 8: 26 AM CDT documented as of this encounter Progress Notes * Isael So - 11/24/2015 4:34 PM CDT Contact Lens Exam MULTI-VISIT DOCUMENT This document contains multiple patient visits and is available for review in Document Viewer. CDM Reports - EYECL Id: [id number] Status: Fnl documented in this encounter Plan of Treatment Not on file documented as of this encounter Visit Diagnoses Not on filedocumented in this encounter Care Teams Entrepreneur Relationship Specialty Start Date End Date Elsewhere, Pcp PCP - General Family Medicine 01/02/21 documented as of this encounter
--- OUTSIDE RECORDS SUMMARY | 2023-08-22 10:05 | XMS_ITS | Encounter Summary ---
Author Name Unknown Organization [facility] Address [address] [place] [address] Care Team Providers Care Silviculture Professor Name Role Phone Elsewhere, Pcp Primary Care Provider Unavailabl e Encounter Details Date Type Department Care Team (Latest Contact Info) Description 09/19/2022 8:00 AM CULTURE MANAGER Ancillary Procedure Department of Ophthalmology in [address] [place] [phone] Geno Alfonso O.D. [address] [place] [address] Glaucoma Open Angle Borderline High Risk Bilateral [...] any clubs o r organizations such as samaritan groups, unions, fraternal or athletic groups, or [...] when you are drinking? 1 or 2 2 Q3: How often do you have si x or more drinks on one occasion? Never 04/22/2022 Overall Financial Resource Strain (CARDIA) Answe r Date Recorded How hard is it for you to pa y for the very basics like food, housing, medical care, and heating? Not hard at all 04/22/2022 PHQ-2 Answer Date Recorded PHQ-2 Score 1 04/22/2022 [facility] Occupational Stress Questionnaire Answer Date Recorded [...] the money to buy more. Never true 10/03/20 22 Within the past 12 months, t [...] EXTENDED - OU - BOTH EYES Routine 09/19/2022 7:51 AM CULTURE MANAGER Glaucoma Open Angle Borderline High Risk Bilateral documented in this encounter Results * Automated VF - Extended - OU - Both Eyes (09/19/2022 7:51 AM CULTURE MANAGER) Narrative OPHTHALMOLOGY IMAGING EXAM - 09/21/2022 11:55 AM CULTURE MANAGER Right Eye Automated visual field device used was Zeiss. Strategy was SHAWN. Threshold was 24-2. Left Eye Automated visual field device used was Zeiss. Strategy was SHAWN. Threshold was 24-2. Notes See note Geno Alfonso O.D. OPHTH VISUAL FIE LD OPHTHALMOLOGY IMAGING EXAM documented in this encounter Visit Diagnoses Diagnosis Glaucoma Open Angle Borderline High Risk Bilateral documented in this encounter Additional Health Concerns Assessment Noted Time PHQ-9 Depression Total Score: 3 07/26/19 21 1:11 PM CULTURE MANAGER documented as of this encounter Care Teams Silviculture Professor Relationship Specialty Start Date End Date Elsewhere, Pcp PCP - General Family Medicine 01/02/21 documented as of this encounter
--- OUTSIDE RECORDS SUMMARY | 2023-08-22 10:05 | XMS_ITS | Encounter Summary ---
Author Name Unknown Organization [facility] Address [address] [place] [address] Care Team Providers Care Toe Former Name Role Phone Elsewhere, Pcp Primary Care Provider Unavailabl e Encounter Details Date Type Department Care Team (Late st Contact Info) Description 12/06/2005 Historical Ophthalmology [facility] Robert Cha M.D. [address] [place] [phone] Social History Tobacco Use Types Packs/Day Years Used Date Smoking Tobacco: Never Assessed Sex and Gender Information Value Date Recorded Sex Assigned at Female 04/05/2021 8:26 AM CDT Gender Identity Female 04/05/2021 8:26 AM CDT Sexual Orientation Straight 04/05/2021 8: 26 AM CDT documented as of this encounter Progress Notes * Robert Cha M.D. - 12/06/2005 12:00 AM CDT Eye General CHIEF COMPLAINT check up HISTORY OF PRESENT ILLNESS Last eye exam 2 years ago. Wearing monovision, 1 month disposable soft contacts, removing the lenses only 1 time in 30 days of continous wear. Contact lenses supplied from [employer], following an exam done in [place] 2-3 years ago. Has a 2 month supply of lenses left. Wants to set up a future appointment for a contact lens evaluation here. Would like to have better reading and distant vision. Denies eye pain, occasional floaters, flashes, or diplopia. IMPRESSION / REPORT / PLAN #1 Hyperopia, presbyopia Gave updated glasses Rx. Patient will call for contact lens appointment at [facility]. DIAGNOSIS #1 Hyperopia, presbyopia CDM Reports - EYEGEN Id: [id number] Status: Fnl documented in this encounter Plan of Treatment Not on file documented as of this encounter Visit Diagnoses Not on filedocumented in this encounter Care Teams Toe Former Relationship Specialty Start Date End Date Elsewhere, Pcp PCP - General Family Medicine 01/02/21 documented as of this encounter
--- OUTSIDE RECORDS SUMMARY | 2023-08-22 10:05 | XMS_ITS | Encounter Summary ---
Author Name Unknown Organization [facility] Address [address] [place] [address] Care Team Providers Care Powertrain Engineer Name Role Phone Elsewhere, Pcp Primary Care Provider Unavailabl e Encounter Details Date Type Department Care Team (Late st Contact Info) Description 05/12/2017 Historical Ophthalmology RST OPH Azra Alexander [address] [place] [phone] Social History Tobacco Use Types Packs/Day Years Used Date Smoking Tobacco: Former Sex and Gender Information Value Date Recorded Sex Assigned at Female 04/05/2021 8:26 AM CDT Gender Identity Female 04/05/2021 8:26 AM CDT Sexual Orientation Straight 04/05/2021 8: 26 AM CDT documented as of this encounter Progress Notes * Azra Alexander, OJimmy - 05/12/2017 10:35 AM CDT Eye General CHIEF COMPLAINT Glaucoma suspect HISTORY OF PRESENT ILLNESS needs more contrast when reading; both eyes; slowly progressive, Floaters alone; both eyes; x several years; on and off. Patient denies ocular pain. GMS: had exam at [facility] for her contacts. IMPRESSION / REPORT / PLAN #1 Glaucoma suspect based on cupping Tmax 18 both, increased c/d with normal avf and oct both, + family history MGM? Pachy 525/525 no drops VF : RE scatter, LE scatter. OCT : RE normal, large artifact, LE susp thin temp. SS 8/9. RNFL 82/87. Observe off meds f/u yearly with team tomy/oct #2 Cataracts, both eyes #3 Refractive error DIAGNOSIS #1 Glaucoma suspect based on cupping #2 Cataracts, both eyes #3 Refractive error CDM Reports - EYEGEN Id: [id number] Status: Fnl documented in this encounter Plan of Treatment Not on file documented as of this encounter Visit Diagnoses Not on filedocumented in this encounter Care Teams Powertrain Engineer Relationship Specialty Start Date End Date Elsewhere, Pcp PCP - General Family Medicine 01/02/21 documented as of this encounter
--- OUTSIDE RECORDS SUMMARY | 2023-08-22 10:05 | XMS_ITS | Encounter Summary ---
Author Name Unknown Organization [facility] Address [address] [place] [id number] Care Team Providers Care Rn Radiation Oncology Name Role Phone Elsewhere, Pcp Primary Care Provider Unavailabl e Reason for Visit * Reason Onset Date Comments Knee Surgery 08/28/2022 Encounter Details Date Type Department Care Team (Late st Contact Info) Description 08/28/2022 Clinical Communication Division of Hematology in [place], [place] [address] [place] [phone] Vanessa Salmeron M.D. [address] [place] [address] Knee Surgery Social History Tobacco Use Types Packs/Day Years [...] often do you attend chur ch or religion services? Never 04/22/2022 Do you belong to any clubs o r organizations such as catholic groups, unions, fraternal or athletic groups, or [...] Answer Date Recorded PHQ-2 Score 1 04/22/2022 [facility] Answer Date [...] place to sleep or slept in a long term (including now)? No 04/22/2022 Depression Answer Date [...] AM CDT documented as of this encounter Miscellaneous Notes * Telephone Encounter - Amy Culver R.N. 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 Mrs. Begum had no further questions or concerns. PLAN Disposition/Recommendation: self-care ,is appropriate at this time, patient encouraged to call backwith questions. Patient okay to proceed with knee surgery. Information/Education: patient/caller able to teach back Caller agreeable to plan of care: yes The following references were used: nursing clinical judgement MOTIVE POWER ELECTRONICS ENGINEER * Telephone Encounter - Zulay Pichardo I - 08/28/2022 9:44 AM CST Pt called in to speak with a nurse. She stated she would like to know if she can get a right knee replacement wit her current treatment. Okay to leave a voicemail. Callback Number: [phone] MOTIVE POWER ELECTRONICS ENGINEER documented in this encounter Plan of Treatment Not on file documented as of this encounter Visit Diagnoses Not on filedocumented in this encounter Additional Health Concerns Assessment Noted Time PHQ-9 Depression Total Score: 3 07/26/19 21 1:11 PM AUTOMOTIVE POWER ELECTRONICS ENGINEER documented as of this encounter Care Teams Rn Radiation Oncology Relationship Specialty Start Date End Date Elsewhere, Pcp PCP - General Family Medicine 01/02/21 documented as of this encounter
--- OUTSIDE RECORDS SUMMARY | 2023-08-22 10:05 | XMS_ITS | Clinical Summary ---
Author Name Unknown Organization [facility] Address [place], [place] [address] Care Team Providers Care Heater Installer Name Role Phone Jihan Casillas MD Primary Care Provider [phone] Allergies Active Allergy Reactions Criticality Noted Date Comments Erythromycin GI Upset,Vomiting 10/06/2013 Penicillins 02/26/2007 tingling all over Medications Medication Sig Dispensed Refills Start Date End Date Status ibandronate (BONIVA) 150 mg tablet Take 1 tablet by mouth every 4 weeks. Take on empty stomach with full glass of water. Do not lie down for 1 hr. 0 06/23/2013 Active zolpidem (AMBIEN) 5 mg tablet Take 1 tablet by mouth at bedtime if needed for Sleep. 0 06/23/2013 Active omeprazole (PRILOSEC) 40 mg capsule Take 1 capsule by mouth once daily. 0 09/27/2013 Active NITROSTAT 0.4 mg SL tablet As needed for chest pain 0 08/30/2013 Active Active Problems No known active problems Immunizations Name Administration Dates Next Due AMB Influenza, IIV3 (Age >=3 years)(Flu Clinic Only) 05/13/2013,05/14/2011 AMB Influenza, IIV4 PF (=>6 mos Flulaval,Fluzone Fluarix)(Flu Clinic Only) 04/27/2019 Amb Influenza, Inact (High-d ose) (Flu Clinic Only) 05/23/2016,05/24/2014 Amb Influenza, Inactivated A IIV4 (Age 65+ Years) Preserv Free 04/24/2020 Influenza A (H1N1), Inactivated 08/02/2009 Influenza Virus, Unspecified 04/24/2020, 05/03/2015,04/20/2012,2011,04/20/2010,04/20/2008 Influenza, High-dose Inactivated 018,04/13/2018,04/07/2017,2014,05/21/2014,04/20/2013 Influenza, High-dose Quadriv alent Inactivated 05/14/2021 Influenza, IIV3 (Age 6-35 mos) 05/14/2011,2006 Influenza, IIV3 (Age >=3 years) 04/11/2009,05/13,05/23/2005 Influenza, Inactivated AIIV4 (Age 65+ Years) Preserv Free 05/22/2022 Pneumococcal Poly,23-Valent (Pneumovax) 06/29/2008 Pneumococcal conj 13-Valent (Prevnar 13) 11/24/2015 TD, UNSPECIFIED 10/02/1994 Td, Preservative Free (age > = 7 Years) 03/29/2005 Tdap 10/06/2012 Zoster (Shingrix-RZV, recombinant) 06/27/2019, Zoster (Zostavax-ZVL, live) 08/02/2009 Social History Tobacco Use Types Packs/Day Years Used Date Smoking Tobacco: Former Smokeless Tobacco: Never Tobacco Cessation:Counseling Given: Yes Comments:quit more than 10 years ago Alcohol Use Standard Drinks/Week Comments Yes 1 (1 standard drink = 0.6 oz pure alcohol) glass of wine before dinner everyday Sex and Gender Information Value Date Recorded Sex Assigned at Not on file Gender Identity Not on file Sexual Orientation Not on file Obstetrics History Last Filed Vital Signs Vital Sign Reading Time Taken Comments Blood Pressure 122/78 02/19/2017 11:23 AM CDT Pulse 62 02/19/2017 11:23 AM CDT Temperature 36.7 ??C (98.1 ??F) 02/19/2017 1 1:23 AM CDT Respiratory Rate - - Oxygen Saturation 98% 02/19/2017 11: 23 AM CDT Inhaled Oxygen Concentration - - Weight 67.9 kg (149 lb 11.2 oz) 017 11:23 AM CDT Height 168.6 cm (5' 6.38) 02/19/2017 1 1:23 AM CDT Body Mass Index 23.89 02/19/2017 11:23 AM CDT Plan of Treatment Health Maintenance Due Date Last Done Comments Depression screening for age 12+ 1955 DEXA/DXA scan for age 65+ 02/21/2008 Medicare Wellness for age 65+ 02/21/2008 BMI (ht and wt on same day) for age 18+ 02/19/2018 02/19/2017 Tetanus booster 10/06/2022 10/06/2012, 09/03/2005, 10/02/1994 COVID-19 vaccine series ( season) 2023 04/22/2022 Influenza for age 65+ 03/21/2023 05/22/2022 , 05/14/2021, 04/24/2020, Additional history exists Tdap Completed 10/06/2012 Pneumococcal series for age 65+ Completed 6, 06/29/2008 Zoster (shingles) series for age 50+ Completed 06/27/2019, 04/10/2019, 08/02/2009 Care Teams Heater Installer Relationship Specialty Start Date End Date Jihan Casillas MD [address] [place] [address] PCP - General Internal Medicine 04/27/19
--- OUTSIDE RECORDS SUMMARY | 2023-08-22 10:05 | XMS_ITS | Encounter Summary ---
Author Name Unknown Organization [facility] Address [address] [place] [address] Care Team Providers Care Die Sinker Apprentice Name Role Phone Elsewhere, Pcp Primary Care Provider Unavailabl e Reason for Referral * Outpatient (Routine) - Closed Specialty Diagnoses / Procedures Referred By Jalen diaz Referred To Contact Ophthalmology Azra Alexander [address] [place] [address] [facility] Referral ID Status Reason Start Date Expiration Date Visits Re quested Visits Authorized [id number] Closed 09/21/2022 09/20/2025 1 1 L MOULDER'S ASSISTANT Reason for Visit * Outpatient (Routine) - Closed Specialty Diagnoses / Procedures Referred By Jalen diaz Referred To Contact Ophthalmology Geno Alfonso O.D. [address] [place] [address] [facility] Referral ID Status Reason Start Date Expiration Date Visits Re quested Visits Authorized [id number] Closed 02/14/2020 02/13/2021 1 1 Encounter Details Date Type Department Care Team (Latest Contact Info) Description 09/19/2022 2:00 PM METAL MOULDER'S ASSISTANT Office Visit Department of Ophthalmology in [place] [address] [place] [address] Azra Alexander [address] [place] [address] Glaucoma Open Angle Borderline High [...] often do you attend chur ch or evangelical services? Never 04/22/2022 Do you belong to any clubs o r organizations such as quaker groups, unions, fraternal or athletic groups, or [...] Answer Date Recorded PHQ-2 Score 1 04/22/2022 [facility] - Occupational [...] place to sleep or slept in a long-term (including now)? No 04/22/2022 Depression Answer Date [...] Progress Notes * Azra Alexander O.D. - 09/19/2022 2:00 PM CST #1 Glaucoma suspect based on cupping, high risk Tmax 18 both, increased c/d with normal avf and oct both, + family history MGM? Pachy 525/525 no drops 09/2022 tomy; OCT; RNFL 85/79. Re wnl. Le susp thin temp Observe off meds. Intraocular pressure 10/10 mmhg. RTC: 9-12 months JMW or GMS glc with TOMY and OCT #2 Pseudophakia, both #3 hyperopia/astigmatism/presbyopia 03/08 had refraction #4 Dermatochalasis, [...] #6 chronic lymphocytic leukemia, diagnosed approx 2 years ago L MOULDER'S ASSISTANT documented in this encounter Plan of Treatment Scheduled Referrals Name Type Priority Associated Diagnoses Order Schedule Ophthalmology office visit (clinic) Outpatient Referral Routine Expected: 06/23/2023 (Approximate), Expires: 12/23/2023 documented as of this encounter Results * Optical Coherence Tomography - Optic Nerve - OU - Both Eyes (06/25/2023 1:05 PM METAL MOULDER'S ASSISTANT) Narrative OPHTHALMOLOGY IMAGING EXAM - 06/25/2023 1:16 PM METAL MOULDER'S ASSISTANT OCT device used was [employer] . Right Eye Reliability was good. Left Eye Reliability was good. Notes TH; see note Azra Alexander OPHTH TOMOGRAPHY Performing Organization Address [facility] Co de Phone Number OPHTHALMOLOGY IMAGING EXAM * Automated VF - Extended - OU - Both Eyes (06/25/2023 12:14 PM METAL MOULDER'S ASSISTANT) Narrative OPHTHALMOLOGY IMAGING EXAM - 06/25/2023 12:23 PM METAL MOULDER'S ASSISTANT Right Eye Automated visual field device used was Zeiss. Strategy was TOMY. Threshold was 24-2. Left Eye Automated visual field device used was Zeiss. Strategy was TOMY. Threshold was 24-2. Notes See note Azra Alexander OPHTH VISUAL FIELD Performing Organization Address [facility] Co de Phone Number OPHTHALMOLOGY IMAGING EXAM documented in this encounter Visit Diagnoses Diagnosis Glaucoma Open Angle Borderline High Risk Bilateral- Primary Glaucoma Open Angle Borderline High Risk Bilateral Glaucoma Open Angle Borderline High Risk Bilateral documented in this encounter Additional Health Concerns Assessment Noted Time PHQ-9 Depression Total Score: 3 07/26/19 21 1:11 PM METAL MOULDER'S ASSISTANT documented as of this encounter Care Teams Die Sinker Apprentice Relationship Specialty Start Date End Date Elsewhere, Pcp PCP - General Family Medicine 01/02/21 documented as of this encounter
--- OUTSIDE RECORDS SUMMARY | 2023-08-22 10:05 | XMS_ITS | Encounter Summary ---
Author Name Unknown Organization [facility] Address [address] [place] [address] Care Team Providers Care Tire Balancer Name Role Phone Elsewhere, Pcp Primary Care Provider Unavailabl e Encounter Details Date Type Department Care Team (Late st Contact Info) Description 02/18/2006 Historical Ophthalmology RST OPH Debbie Gandara [address] [place] [phone] Social History Tobacco Use Types Packs/Day Years Used Date Smoking Tobacco: Never Assessed Sex and Gender Information Value Date Recorded Sex Assigned at Female 04/05/2021 8:26 AM CDT Gender Identity Female 04/05/2021 8:26 AM CDT Sexual Orientation Straight 04/05/2021 8: 26 AM CDT documented as of this encounter Progress Notes * Debbie Gandara O.D. - 02/18/2006 12:00 AM CDT Contact Lens Exam MULTI-VISIT DOCUMENT This document contains multiple patient visits and is available for review in Document Viewer. CDM Reports - EYECL Id: [id number] Status: Fnl documented in this encounter Plan of Treatment Not on file documented as of this encounter Visit Diagnoses Not on filedocumented in this encounter Care Teams Tire Balancer Relationship Specialty Start Date End Date Elsewhere, Pcp PCP - General Family Medicine 01/02/21 documented as of this encounter
--- OUTSIDE RECORDS SUMMARY | 2023-08-22 10:05 | XMS_ITS | Encounter Summary ---
Author Name Unknown Organization [facility] Address [address] [place] [address] Care Team Providers Care Leather Sponger Name Role Phone Elsewhere, Pcp Primary Care Provider Unavailabl e Encounter Details Date Type Department Care Team (Late st Contact Info) Description 05/31/2014 Historical Ophthalmology RST OPH Giovanna Moy M.D. [address] [place] [address] Social History Tobacco Use Types Packs/Day Years Used Date Smoking Tobacco: Never Assessed Sex and Gender Information Value Date Recorded Sex Assigned at Female 04/05/2021 8:26 AM CDT Gender Identity Female 04/05/2021 8:26 AM CDT Sexual Orientation Straight 04/05/2021 8: 26 AM CDT documented as of this encounter Progress Notes * Giovanna Moy M.D. - 05/31/2014 10:20 AM CST Eye General CHIEF COMPLAINT Follow up as a glaucoma suspect HISTORY OF PRESENT ILLNESS This is a 69 year old female here for follow up as a glaucoma suspect. Patient is feeling some pressure behind her left eye; after they said there was something going on. She had not noticed it before. She mostly notices it at night when she is horizontal. Patient feels she is not seeing as well asshe should. No other eye concerns. CK: 69 y/o female presents for glaucoma eval. Tmax 18 both cct 525 both, +fmohx glaucoam MGM Deniesocular injury, steroid use, previous glaucoma drops, laser, surgery, migraines, hypotension, raynaud's, sleep apnea. IMPRESSION / REPORT / PLAN #1 Glaucoma suspect based on cupping Tmax 18 both, increased c/d with normal avf and oct both, + family history MGM? Pachy 525/525 no drops f/u yearly with team tomy/oct #2 Cataracts, both eyes Plan: observe #3 Refractive error (hyperopic astigmatism, presbyopia). Plan: spectacle prescription (Refraction 1) given. DIAGNOSIS #1 Glaucoma suspect based on cupping #2 Cataracts, both eyes #3 Refractive error (hyperopic astigmatism, presbyopia). CDM Reports - EYEGEN Id: [id number] Status: Fnl documented in this encounter Plan of Treatment Not on file documented as of this encounter Visit Diagnoses Not on filedocumented in this encounter Care Teams Leather Sponger Relationship Specialty Start Date End Date Elsewhere, Pcp PCP - General Family Medicine 01/02/21 documented as of this encounter
--- OUTSIDE RECORDS SUMMARY | 2023-08-22 10:05 | XMS_ITS | Encounter Summary ---
Author Name Unknown Organization [facility] Address [address] [place] [address] Care Team Providers Care Air Hammer Operator Name Role Phone Elsewhere, Pcp Primary Care Provider Unavailabl e Encounter Details Date Type Department Care Team (Late st Contact Info) Description 04/07/2014 Historical Ophthalmology RST OPH Azra Alexander [address] [place] [phone] Social History Tobacco Use Types Packs/Day Years Used Date Smoking Tobacco: Never Assessed Sex and Gender Information Value Date Recorded Sex Assigned at Female 04/05/2021 8:26 AM CDT Gender Identity Female 04/05/2021 8:26 AM CDT Sexual Orientation Straight 04/05/2021 8: 26 AM CDT documented as of this encounter Progress Notes * Azra Alexander, OPallaviDPallavi - 04/07/2014 12:44 PM CDT Eye General CHIEF COMPLAINT Blurry vision HISTORY OF PRESENT ILLNESS LUISANA 1 year ago. Patient wears monthly replacement contacts, stiff neck loader. Patient also has distance only eyeglasses worn nights after her contacts. Patient reports blurred distance and near with contacts, unsure about her glasses they are worn only at home. Patient denies pain, flashes, diplopia. Patient has hx of floaters, no changes. IMPRESSION / REPORT / PLAN #1 Glaucoma suspect based on cupping Low blood pressure, + family history MGM? Pachy 525/525 Plan: Get [facility] consult with Dr. Giovanna Moy. Get OCT, disc photos, Sarah 24-2. Please try and coordinate contact lens evaluation with Eddi So at [facility] the same day. #2 Cataracts, both eyes Plan: observe #3 Refractive error (hyperopic astigmatism, presbyopia). Plan: spectacle prescription (Refraction 1) given. DIAGNOSIS #1 Glaucoma suspect based on cupping #2 Cataracts, both eyes #3 Refractive error (hyperopic astigmatism, presbyopia). CDM [facility] Id: [id number] Status: Fnl documented in this encounter Plan of Treatment Not on file documented as of this encounter Visit Diagnoses Not on filedocumented in this encounter Care Teams Air Hammer Operator Relationship Specialty Start Date End Date Elsewhere, Pcp PCP - General Family Medicine 01/02/21 documented as of this encounter
--- OUTSIDE RECORDS SUMMARY | 2023-08-22 10:05 | XMS_ITS | Encounter Summary ---
Author Name Unknown Organization [facility] Address [address] [place] [address] Care Team Providers Care Nuisance Animal Damage Control Agent Name Role Phone Elsewhere, Pcp Primary Care Provider Unavailabl e Encounter Details Date Type Department Care Team (Latest Contact Info) Description 09/19/2022 10:45 AM FOOD VENDOR Ancillary Procedure Department of Ophthalmology in [address] [place] [phone] Geno Alfonso O.D. [address] [place] [address] Glaucoma Open Angle Borderline High Risk Bilateral [...] often do you attend chur ch or yarsanism services? Never 04/22/2022 Do you belong to any clubs o r organizations such as uatsdin groups, unions, fraternal or athletic groups, or [...] Answer Date Recorded PHQ-2 Score 1 04/22/2022 [facility] Questionnaire Answer Date [...] NERVE - OU - BOTH EYES Routine 09/19/2022 9:13 AM FOOD VENDOR Glaucoma Open Angle Borderline High Risk Bilateral documented in this encounter Results * Optical Coherence Tomography (OCT) - Optic Nerve - OU - Both Eyes (09/19/2022 9:13 AM FOOD VENDOR) Narrative OPHTHALMOLOGY IMAGING EXAM - 09/21/2022 11:55 AM FOOD VENDOR OCT device used was [employer] . Notes See note Geno Alfonso O.D. OPHTH TOMOGRAPHY OPHTHALMOLOGY IMAGING EXAM documented in this encounter Visit Diagnoses Diagnosis Glaucoma Open Angle Borderline High Risk Bilateral documented in this encounter Additional Health Concerns Assessment Noted Time PHQ-9 Depression Total Score: 3 07/26/19 21 1:11 PM FOOD VENDOR documented as of this encounter Care Teams Nuisance Animal Damage Control Agent Relationship Specialty Start Date End Date Elsewhere, Pcp PCP - General Family Medicine 01/02/21 documented as of this encounter
--- OUTSIDE RECORDS SUMMARY | 2023-08-22 10:05 | XMS_ITS | Encounter Summary ---
Author Name Unknown Organization [facility] Address [address] [place] [address] Care Team Providers Care Head Buyer Tobacco Name Role Phone Elsewhere, Pcp Primary Care Provider Unavailabl e Encounter Details Date Type Department Care Team (Late st Contact Info) Description 11/01/2014 Historical Ophthalmology RST OPH Karolyn Oropeza [address] [place] [phone] Social History Tobacco Use Types Packs/Day Years Used Date Smoking Tobacco: Never Assessed Sex and Gender Information Value Date Recorded Sex Assigned at Female 04/05/2021 8:26 AM CDT Gender Identity Female 04/05/2021 8:26 AM CDT Sexual Orientation Straight 04/05/2021 8: 26 AM CDT documented as of this encounter Progress Notes * Karolyn Lopez O.D. - 11/01/2014 11:40 AM CDT Contact Lens Exam MULTI-VISIT DOCUMENT This document contains multiple patient visits and is available for review in Document Viewer. CDM Reports - EYECL Id: [id number] Status: Fnl documented in this encounter Plan of Treatment Not on file documented as of this encounter Visit Diagnoses Not on filedocumented in this encounter Care Teams Head Buyer Tobacco Relationship Specialty Start Date End Date Elsewhere, Pcp PCP - General Family Medicine 01/02/21 documented as of this encounter
--- NOTE | 2023-08-22 10:15 | CRLHL7_ITS ---
For Patients: As a result of the Cures Act, medical imaging exams and procedure reports are released immediately into your electronic medical record. You may view this report before your referring provider. If you have questions, please contact your health care provider. BILATERAL SCREENING MAMMOGRAM WITH COMPUTER-AIDED DETECTION AND TOMOSYNTHESIS TECHNIQUE: CC and MLO views were obtained. These mammographic images have been obtained using full-field digital technique. These mammographic images were interpreted with the benefit of computer-aided detection. Breast Tomosynthesis was used in this interpretation. COMPARISON FILM: 04/17/22, 04/05/21. FINDINGS: The breasts are heterogeneously dense, which may obscure small masses IMPRESSION: There is no radiographic evidence for malignancy. ASSESSMENT: BI-RADS Category 1: Negative RECOMMENDATION: Routine screening mammogram in 1 year. A lay language report of this examination will be provided to the patient. Carl Vaughn M.D. Diagnostic Radiologist [email or web address] ARMIDA/bhavik / be/Dictated by: Carl Vaughn MD @ 08/25/2023 8:22:00 AM (Electronically Signed)
== END 2023-08-22 10:02 | disposition home or self-care (01) ==
LOC: MAMMO 10:02
PROVIDERS: PCP Internal Medicine; Visit Provider Internal Medicine
DX: Z12.31 Encounter for screening mammogram for malignant neoplasm of breast (principal); R92.2 Inconclusive mammogram
CPT/HCPCS: 77063; 77067

== ENCOUNTER 2024-02-09 14:33 | Outpatient (CLI) | payer OTHER, SELFPAY ==
--- OUTSIDE RECORDS SUMMARY | 2024-02-09 14:37 | XMS_ITS | Encounter Summary ---
Author Organization [facility] Address [address] [place] [address] Care Team Providers Care Overhauler Name Role Phone Elsewhere, Pcp Primary Care Provider Unavailabl e Encounter Details Date Type Department Care Team (Late st Contact Info) Description 04/22/2014 Historical Ophthalmology RST OPH Kavon Perales O.D. [address] [place] [address] Social History Tobacco Use Types Packs/Day Years [...] Document Viewer. CDM Reports - EYECL Id: [id number] Status: Fnl documented in this encounter Plan of Treatment Not on file documented as of this encounter Visit Diagnoses Not on filedocumented in this encounter Care Teams Overhauler Relationship Specialty Start Date End Date Elsewhere, Pcp PCP - General Family Medicine 01/02/21 documented as of this encounter
--- OUTSIDE RECORDS SUMMARY | 2024-02-09 14:37 | XMS_ITS | Encounter Summary ---
Author Organization [facility] Address [address] [place] [address] Care Team Providers Care Warehouse Administrator Name Role Phone Elsewhere, Pcp Primary Care Provider Unavailabl e Encounter Details Date Type Department Care Team (Late st Contact Info) Description 11/01/2014 Historical Ophthalmology RST OPH Karolyn Oropeza O.D. [address] [place] [address] Social History Tobacco Use Types Packs/Day Years [...] Document Viewer. CDM Reports - EYECL Id: [id number] Status: Fnl documented in this encounter Plan of Treatment Not on file documented as of this encounter Visit Diagnoses Not on filedocumented in this encounter Care Teams Warehouse Administrator Relationship Specialty Start Date End Date Elsewhere, Pcp PCP - General Family Medicine 01/02/21 documented as of this encounter
--- OUTSIDE RECORDS SUMMARY | 2024-02-09 14:37 | XMS_ITS | Encounter Summary ---
Author Organization [facility] Address [address] [place] [address] Care Team Providers Care Operator Automated Process Name Role Phone Elsewhere, Pcp Primary Care Provider Unavailabl e Encounter Details Date Type Department Care Team (Latest Contact Info) Description 01/14/2024 9:30 AM CDT Clinical Communication Virtual Review in [place], [place] [address] [place] [address] Social History Tobacco Use Types Packs/Day Years Used Date Smoking Tobacco: Former Cigarettes 0.5 38 0 02/18/1959 - 02/18/1997 Smokeless Tobacco: Never Alcohol Use Standard Drinks/Week Comments Yes 7 (1 standard drink = 0.6 oz pur e alcohol) 1/night [facility] Utilities Answer Date Recorded In the past 12 months has th e electric, gas, oil, or water company threatened to shut off services in your home? No 01/10/2024 Humiliation, Afraid, Rape, and Kick questionnair e [...] often do you attend chur ch or pentecostalism services? Never 04/22/2022 Do you belong to any clubs o r organizations such as taoist groups, unions, fraternal or athletic groups, or [...] Answer Date Recorded PHQ-2 Score 1 04/22/2022 [facility] [...] to strenuous exercise (like a brisk walk)? 7 days 01/10/2024 On average, how many minutes do you engage in exercise at this level? 20 min 01/10/2024 Hunger Vital Sign Answer Date Recorded Within the past 12 months, y ou worried that your food would run out before you got the money to buy more. Never true 01/10/20 24 Within the past 12 months, t he food you bought just didn't last and you didn't have money to get more. Never true 01/10/2024 PRAPARE - Transportation Answer Date Re corded In the past 12 months, has l ack of transportation kept you from medical appointments or from getting medications? No 12/20 In the past 12 months, has l ack of transportation kept you from meetings, work, or from getting things needed for daily living? No 01/10/2024 Depression Answer Date Recor ded PHQ-9 Total Score (max 27) 3 07/26 Nutrition Answer Date Recorded On average, how many serving s of fruits and vegetables do you eat per day (serving size is equal to 1 cup or approximately the size of a tennis ball)? 0-2 01/10/2024 Dental Answer Date Recorded Dental: Regular Dentist Yes 04/05/20 Employment Answer Date Recorded Employment status Retired 01/10/2024 Housing Stability Answer Date Recorded What is your living situation today? I have a [facility] place to live 01/10/2024 Education Answer Date Recorded What is the [...] Total Score: 3 07/26/19 21 1:11 PM VIDEO GAME SCRIPT WRITER documented as of this encounter Care Teams Operator Automated Process Relationship Specialty Start Date End Date Elsewhere, Pcp PCP - General Family Medicine 01/02/21 documented as of this encounter
--- OUTSIDE RECORDS SUMMARY | 2024-02-09 14:37 | XMS_ITS | Encounter Summary ---
Author Organization [facility] Address [address] [place] [address] Care Team Providers Care Supervisor Home Restoration Service Name Role Phone Elsewhere, Pcp Primary Care Provider Unavailabl e Encounter Details Date Type Department Care Team (Late st Contact Info) Description 05/12/2017 Historical Ophthalmology RST OPH Azra Alexander O.D. [address] [place] [address] Social History Tobacco Use Types Packs/Day Years Used Date Smoking Tobacco: Former Sex and Gender Information Value Date Recorded Sex Assigned at Female 04/05/2021 8:26 AM CDT Gender Identity Female 04/05/2021 8:26 AM CDT Sexual Orientation Straight 04/05/2021 8: 26 AM CDT documented as of this encounter Progress Notes * Azra Alexander O.D. - 05/12/2017 10:35 AM CDT Eye General CHIEF COMPLAINT Glaucoma suspect HISTORY OF PRESENT ILLNESS needs more contrast when reading; both eyes; slowly progressive, Floaters alone; both eyes; x several years; on and off. Patient denies ocular pain. GMS: had exam at [facility] for her contacts. IMPRESSION / REPORT [...] Refractive error CDM Reports - EYEGEN Id: [id number] Status: Fnl documented in this encounter Plan of Treatment Not on file documented as of this encounter Visit Diagnoses Not on filedocumented in this encounter Care Teams Supervisor Home Restoration Service Relationship Specialty Start Date End Date Elsewhere, Pcp PCP - General Family Medicine 01/02/21 documented as of this encounter
--- OUTSIDE RECORDS SUMMARY | 2024-02-09 14:37 | XMS_ITS ---
Author Organization [facility] Address [address] [place] [address] Care Team Providers Care Senior Software Quality Analyst Name Role Phone Unavailable Unavailable Unavailable Surgery Details Not on file Complications Check Surgery Details section. Procedure Estimated Blood Loss Check Surgery Details section. Procedure Findings Check Surgery Details section. Procedure Specimens Taken Check Surgery Details section.
--- OUTSIDE RECORDS SUMMARY | 2024-02-09 14:37 | XMS_ITS | Encounter Summary ---
Author Organization [facility] Address [address] [place] [address] Care Team Providers Care Electrical Foreman Name Role Phone Elsewhere, Pcp Primary Care Provider Unavailabl e Reason for Referral * Outpatient (Routine) - Closed Specialty Diagnoses / Procedures Referred By Jalen t Referred To Contact Ophthalmology Azra Alexander O.D. [address] [place] [address] [facility] Referral ID Status Reason Start Date Expiration Date Visits Re quested Visits Authorized [id number] Closed 01/18/2024 07/19/2025 1 1 Scheduling Instructions Reschedule exam that was missed due to my absence. Thank you Encounter Details Date Type Department Care Team (Latest Contact Info) Description 01/15/2024 8:30 AM CDT Ancillary Procedure Department of Ophthalmology in [place] [address] [place] [phone] Azra Alexander O.D. [address] [place] [phone] Glaucoma Open Angle Borderline High Risk Bilateral Social History Tobacco Use Types Packs/Day Years Used Date Smoking Tobacco: Former Cigarettes 0.5 38 0 02/18/1959 - 02/18/1997 Smokeless Tobacco: Never Alcohol Use Standard Drinks/Week Comments Yes 7 (1 standard drink = 0.6 oz pur e alcohol) 1/night [facility] Utilities Answer Date Recorded In the past 12 months has e [employer], [employer], oil, or water [employer] threatened to shut off services in your [...] often do you attend chur ch or anabaptist services? Never 04/22/2022 Do you belong to any clubs o r organizations such as mormon groups, unions, fraternal or athletic groups, or [...] Answer Date Recorded PHQ-2 Score 1 04/22/2022 [facility] - Occupational Stress Questionnaire Answer Date Recorded [...] your living situation today? I have a [facility] place to live 01/10/2024 Education Answer Date [...] Progress Notes * Azra Alexander O.D. - 01/15/2024 8:30 AM CDT #1 Glaucoma suspect based on cupping, high [...] her vf and oct/variable in the past 12/2023 addendum: Unfortunately Haley was not seen due to my medical absence. Testing only. Patient states there is a film in the peripheral vision of the right eye. Patient first noticed it about 1 month ago. Also feeling some grittiness in the lower of both eyes. Denies eye pain, no other concerns at this time. Tomy: Re scatter, fl. Le scatter. Oct; rnfl 82/80. Re green, Le susp thin temp. Large disc diameter both. Re variable, similar to 2019. Le variable, similar to 2019. Observe off meds. Recommend exam first available due to concerns right eye. #2 Pseudophakia, both 06/2023 PCO left eye [...] eye Try Refresh Plus or Systane Complete #1 Glaucoma Open Angle Borderline High Risk Bilateral documented in this encounter Plan of Treatment Scheduled Referrals Name Type Priority Associated Diagnoses Order Schedule Ophthalmology office visit (clinic) Outpatient Referral Routine Expected: 01/18/2024 (Approximate), Expires: 04/19/2025 documented as of this encounter Procedures Procedure Name Priority Date/Time Associated Diagnosis Comments AUTOMATED VF - EXTENDED - OU - BOTH EYES Routine 01/15/2024 8:26 AM CDT Glaucoma Open Angle Borderline High Risk Bilateral documented in this encounter Results * Automated VF - Extended - OU - Both Eyes (01/15/2024 8:26 AM CDT) Narrative OPHTHALMOLOGY IMAGING EXAM - 01/18/2024 9:03 PM CDT Right Eye Automated visual field device used was Zeiss. Strategy was TOMY. Threshold was 24-2. Left Eye Automated visual field device used was Zeiss. Strategy was TOMY. Threshold was 24-2. Notes See note Azra Alexander O.D. OPHTH VISUAL FIE LD OPHTHALMOLOGY IMAGING EXAM documented in this encounter Visit Diagnoses Diagnosis Glaucoma Open Angle Borderline High Risk Bilateral documented in this encounter Additional Health Concerns Assessment Noted Time PHQ-9 Depression Total Score: 3 07/26/19 21 1:11 PM LOOM FIXER APPRENTICE documented as of this encounter Care Teams Electrical Foreman Relationship Specialty Start Date End Date Elsewhere, Pcp PCP - General Family Medicine 01/02/21 documented as of this encounter
--- OUTSIDE RECORDS SUMMARY | 2024-02-09 14:37 | XMS_ITS | Encounter Summary ---
Author Organization [facility] Address [address] [place] [address] Care Team Providers Care Certified Novell Administrator Name Role Phone Elsewhere, Pcp Primary Care Provider Unavailabl e Encounter Details Date Type Department Care Team (Late st Contact Info) Description 01/05/2024 Clinical Communication Primary Care on Demand at [facility] [address] [place] [address] Fam Deng M.D. [address] [place] [address] Social History Tobacco Use Types Packs/Day Years Used Date Smoking Tobacco: Former Cigarettes 0.5 38 0 02/18/1959 - 02/18/1997 Smokeless Tobacco: Never Alcohol Use Standard Drinks/Week Comments Yes 7 (1 standard drink = 0.6 oz pur e alcohol) 1/night [facility] Utilities Answer Date Recorded In the past 12 months has e [employer], gas, oil, or water [email or web address] threatened to shut off services in your [...] How often do you attend chur or bahai services? Never 04/22/2022 Do you belong to any clubs o r organizations such as jain groups, unions, fraternal or athletic groups, or [...] Answer Date Recorded PHQ-2 Score 1 04/22/2022 [facility] - Occupational Stress [...] your living situation today? I have a [facility] place to live 01/10/2024 Education Answer [...] Total Score: 3 07/26/19 21 1:11 PM FAMILY ENGAGEMENT SPECIALIST documented as of this encounter Care Teams Certified Novell Administrator Relationship Specialty Start Date End Date Elsewhere, Pcp PCP - General Family Medicine 01/02/21 documented as of this encounter
--- OUTSIDE RECORDS SUMMARY | 2024-02-09 14:37 | XMS_ITS | Referral Summary ---
Author Organization [facility] Address [address] [place] [address] Care Team Providers Care Petroleum Blending Plant Operator Name Role Phone Elsewhere, Pcp Primary Care Provider Unavailabl e Source Comments Patient records contain information from all sites at [facility]. For routine questions regarding patient records, call [phone] during business hours, M-F 8:00 AM - 5:00 PM Central Time. Record requests for emergency care only can be directed to [phone] at any time.[facility] Encounters Date Type Department Care Team Description 02/05/2024 8:30 AM CDT Office Visit Department of Ophthalmology in [place] [address] [place] [address] Azra Alexander O.D. Glaucoma Open Angle Borderline High Risk Bilateral (Primary Dx); Dermatochalasis Right Upper Eyelid 01/15/2024 9:15 AM CDT Ancillary Procedure Department of Ophthalmology 01/15/2024 6:35 AM CDT Ancillary Procedure Department of Ophthalmology 01/15/2024 9:30 AM CDT Ancillary Procedure Department of Ophthalmology in [place] [address] [place] [address] Azra Alexander O.D. Glaucoma Open Angle Borderline High Risk Bilateral 01/15/2024 8:30 AM CDT Ancillary Procedure Department of Ophthalmology in [place] [address] [place] [address] Azra Alexander O.D. Glaucoma Open Angle Borderline High Risk Bilateral 01/14/2024 9:30 AM CDT Clinical Communication Virtual Review in [place], [place] [address] [place] [address] 01/05/2024 Clinical Communication Primary Care on Demand at [facility] [address] [facility] [place] [phone] Fam Deng M.D. from Last 3 Months Allergies Active Allergy Reactions Criticality Noted Date Comments Erythromycin Base GI intolerance Low 04/14/2003 Penicillins Itching Low 04/02/2012 verified Medications Medication Sig Dispensed Refills Start Date End Date Status aspirin [address] tablet Take 1 tablet by mouth every morning. 04/22/2014 Active naproxen sodium (ALEVE/ANAPROX) 220 mg tablet Take 2 tablets by mouth as needed. pain 06/29/2008 Active calcium carbonate/vitamin D3 (CALCIUM 600 + D,3, ORAL) Take 1 tablet by mouth every morning. 10/17/2014 Active folic acid/multivit-min/l utein (CENTRUM SILVER ORAL) Take 1 tablet by mouth every morning. 04/22/2014 Active nitroglycerin (NITROSTAT) 0.[address] 1 TAB UNDER TONGUE NEEDED FOR CHEST PAIN, NO RELIEF IN 5MIN CALL 911 REPEAT DOSE EVERY 5MIN [id number] IF PAIN PERSIST 25 tablet 1 04/12/2020 Active Additional Information Patient taking differently: 0.4 mg sublingual Every 5 min PRN, Reported on 04/16/2022 zolpidem (AMBIEN) 5 mg tablet Take 1 [...] HZV (ZOSTAVAX) 08/02/2009 Influenza (IM) Preservative Free 05/14/2011,1108/2006 Influenza Split 05/21/2014, 3,04/20/2012,2010,04/20/2010,04/20/2008 Influenza TIV (IM) 05/13/2013,05/14/2011 Influenza high dose QV(65 ye ars or older) (PF) 05/14/2021 Influenza, Quadrivalent, Adj uvanted, Preservative Free 04/24/2020 Influenza, Seasonal, Injectable 05/13/20 13,04/19/2010,04/11/2009,2007,04/20/2008,05/23/2005 Influenza, Unspecified 04/24/2020,2014,04/02/2012,2009 PCV13 11/24/2015 PPSV23 06/29/2008 RZV (SHINGRIX) 06/27/2019,04/10/2019 SARS-COV-2 (COVID-19) - [...] = 0.6 oz pur e alcohol) 1/night [facility] Utilities Answer Date Recorded In the past 12 months has e electric, gas, oil, or water company [...] often do you attend chur ch or synagogue services? Never 04/22/2022 Do you belong to [...] Answer Date Recorded PHQ-2 Score 1 04/22/2022 [facility] - Occupational Stress Questionnaire Answer Date [...] your living situation today? I have a [facility] place to live 01/10/2024 Education Answer [...] Sign Reading Time Taken Comments Blood Pressure 131/78 10/21/2023 2:22 PM CDT Pulse 73 10/21/2023 2:22 PM CDT Temperature 37.1 ??C (98.7 ??F) 10/21/2023 2:22 PM CD T Respiratory Rate 15 01/13/2018 12:11 PM CDT Oxygen Saturation 96% 01/13/2018 12:11 PM CDT Inhaled Oxygen Concentration - - Weight 67.8 kg (149 lb 7.6 oz) 10/21/2023 2:22 P M CDT Height 168.6 cm (5' 6.38) 10/21/2023 2:22 PM CD T Body Mass Index 23.85 10/21/2023 2:22 PM CDT Plan of Treatment Not on file Medical Devices Implanted Type Area Cinder Crusher Operator Device Identifier Shelf Expiration Date Model / Serial / Lot Small Frag-Screw Remy 3.5x34 - Jeffries [id number] Implanted:Qty: 1 on 09/12/2005 Hardware e.g. pins/screws/ rods Depuy Synthes Description:Device Manufactu rer - Synthes. Device Status Text - [id number]. Small Frag-Screw Remy 3.5x20 - Jeffries [id number] Implanted:Qty: 1 on 09/12/2005 Hardware e.g. pins/screws/ rods Right: Toes Depuy Synthes Description:Device Manufactu rer - Synthes. Device Status Text - [id number]. Toe right big Knee Implant Knee Implant Right: Knee Description:October 26, 2022 Procedures Procedure Name Priority Date/Time Associated Diagnosis Comments OPTICAL COHERENCE TOMOGRAPHY (OCT) - OPTIC NERVE - OU - BOTH EYES Routine 01/15/2024 9:24 AM CDT Glaucoma Open Angle Borderline High Risk Bilateral OPHTHALMOLOGY IMAGE EXAM Routine 01/15/2024 9:15 AM CDT AUTOMATED VF - EXTENDED - OU - BOTH EYES Routine 01/15/2024 8:26 AM CDT Glaucoma Open Angle Borderline High Risk Bilateral OPHTHALMOLOGY IMAGE EXAM Routine 01/15/2024 6:35 AM CDT from Last 3 Months Results * Optical Coherence Tomography - Optic Nerve - OU - Both Eyes (01/15/2024 9:24 AM CDT) Narrative OPHTHALMOLOGY IMAGING EXAM - 01/18/2024 9:03 PM CDT OCT device used was [employer]rus . Notes SMG, see note Azra Alexander O.D. OPHTH TOMOGRAPHY Performing Organization Address [facility] de Phone Number OPHTHALMOLOGY IMAGING EXAM * Optical Coherence Tomography (OCT)-Ophthalmology Image Exam (01/15/2024 9:15 AM CDT) Only the most recent of2 resultswithin the time period is included. 01/15/2024 9:15 AM CDT Narrative IIMS - 01/15/2024 9:27 AM CDT This order has been created and auto-finalized to support the import of images acquired without order. The clinical documentation to support these images can be found on the encounter that produced images. Provider Not In System IMG NON RAD IMAGI NG PROCEDURES Performing Organization Address [facility] de Phone Number IIMS NA [...] Azra Alexander O.D. OPHTH VISUAL FIE LD Performing Organization Address [facility] de Phone Number OPHTHALMOLOGY IMAGING EXAM from Last 3 Months Advance Directives For more information, please contact: [phone] Documents on File Type Date Recorded Patient Automatic Lathe Tender Expl anation Advance Directives 04/09/2006 12:00 AM Leg acy document. See document viewer. Care Teams Petroleum Blending Plant Operator Relationship Specialty Start Date End Date Elsewhere, Pcp PCP - General Family Medicine 01/02/21
--- OUTSIDE RECORDS SUMMARY | 2024-02-09 14:37 | XMS_ITS | Encounter Summary ---
Author Organization [facility] Address [address] [place] [address] Care Team Providers Care Corrugator Name Role Phone Elsewhere, Pcp Primary Care Provider Unavailabl e Encounter Details Date Type Department Care Team (Latest Contact Info) Description 01/15/2024 9:30 AM CDT Ancillary Procedure Department of Ophthalmology in [place], [place] [address] [place] [phone] Azra Alexander O.D. [address] [place] [address] Glaucoma Open Angle Borderline High Risk Bilateral Social History Tobacco Use Types Packs/Day Years Used Date Smoking Tobacco: Former Cigarettes 0.5 38 0 02/18/1959 - 02/18/1997 Smokeless Tobacco: Never Alcohol Use Standard Drinks/Week Comments Yes 7 (1 standard drink = 0.6 oz pur e alcohol) 1/night [facility] Utilities Answer Date Recorded In the past 12 months has e [employer], gas, oil, or water [employer] threatened to shut off services in your [...] How often do you attend chur or jainism services? Never 04/22/2022 Do you belong to any clubs o r organizations such as lutheran groups, unions, fraternal or athletic groups, or [...] your living situation today? I have a [facility] place to live 01/10/2024 Education Answer Date [...] see note Azra Alexander O.D. OPHTH TOMOGRAPHY OPHTHALMOLOGY IMAGING EXAM documented in this encounter Visit Diagnoses Diagnosis Glaucoma Open Angle Borderline High Risk Bilateral documented in this encounter Additional Health Concerns Assessment Noted Time PHQ-9 Depression Total Score: 3 07/26/19 21 1:11 PM ENVIRONMENTAL TECHNICIAN documented as of this encounter Care Teams Corrugator Relationship Specialty Start Date End Date Elsewhere, Pcp PCP - General Family Medicine 01/02/21 documented as of this encounter
--- OUTSIDE RECORDS SUMMARY | 2024-02-09 14:37 | XMS_ITS | Clinical Summary ---
Author Organization [facility] Address [address] [place] [address] Care Team Providers Care Core Java Software Engineer Name Role Phone Elsewhere, Pcp Primary Care Provider Unavailabl e Source Comments Patient records contain information from all sites at [facility]. For routine questions regarding patient records, call [phone] during business hours, M-F 8:00 AM - 5:00 PM Central Time. Record requests for emergency care only can be directed to [phone] at any time.[facility] Allergies Active Allergy Reactions Criticality Noted Date [...] 5MIN CALL 911 REPEAT DOSE EVERY 5MIN [id number] IF PAIN PERSIST 25 tablet 1 04/12/2020 [...] CDT Office Visit Department of Ophthalmology in [place] [address] [place] [address] Azra Alexander O.D. Glaucoma Open Angle Borderline High Risk Bilateral (Primary Dx); Dermatochalasis Right Upper Eyelid 01/15/2024 9:30 AM CDT Ancillary Procedure Department of Ophthalmology in [place] [address] [place] [address] Azra Alexander O.D. Glaucoma Open Angle Borderline High Risk Bilateral 01/15/2024 9:15 AM CDT Ancillary Procedure Department of Ophthalmology 01/15/2024 8:30 AM CDT Ancillary Procedure Department of Ophthalmology in [place] [address] [place] [address] Azra Alexander O.D. Glaucoma Open Angle Borderline High Risk Bilateral 01/15/2024 6:35 AM CDT Ancillary Procedure Department of Ophthalmology 01/14/2024 9:30 AM CDT Clinical Communication Virtual Review in [address] [address] 01/05/2024 Clinical Communication Primary Care on Demand at [address] [place] [address] Fam Deng M.D. from Last 3 Months Immunizations Name Administration [...] alcohol) 1/night [facility] Utilities Answer Date Recorded In the past [...] often do you attend chur ch or episcopal services? Never 04/22/2022 Do you belong to any clubs o r organizations such as restoration groups, unions, fraternal or athletic groups, or [...] Answer Date Recorded PHQ-2 Score 1 04/22/2022 [facility] Occupat ional Health - Occupational Stress [...] your living situation today? I have a [facility] place to live 01/10/2024 Education Answer [...] 10/21/2023 2:22 PM CDT Plan of Treatment Health Maintenance Due Date Last Done Comments COVID-19 Vaccine (2022- season) 2023 04/16/2023, 04/22/2022, 11/06/2021, Additional history exists Depression Screening (Annual PHQ-2) 07/21/2023 Fall Risk Screen (Annual) 07/21/2023 Influenza Vaccine (#1) 2024 , 05/22/2022, 05/14/2021, Additional history exists DTaP,Tdap,and Td Vaccines (3 - Td or Tdap) 06/18/2033 06/18/2023, 10/06/2012, 03/29/2005, Additional history exists Pneumococcal vaccine (65+ years) Completed 11/24/2015, 06/29/2008 Zoster Vaccines Completed 06/27/2019, 03/22, 08/02/2009 HPV Vaccines Aged Out No longer eligi ble based on patient's age to complete this topic Medical Devices Implanted Type Area Plating Foreman Device Identifier Shelf Expiration Date Model / [...] 9:03 PM CDT OCT device used was [employer] . Notes SMG, see note Azra Alexander O.D. OPHTH TOMOGRAPHY OPHTHALMOLOGY IMAGING EXAM * Optical [...] RAD IMAGI NG PROCEDURES Performing Organization Address City/[facility]/ZIP Co de Phone Number IIMS NA * Automated [...] OPHTH VISUAL FIE LD Performing Organization Address City/[facility]/ZIP Co de Phone Number OPHTHALMOLOGY IMAGING EXAM from Last 3 Months Advance Directives For more information, please contact: [phone] Documents on File Type Date Recorded Patient Equine Breeder Expl anation Advance Directives 04/09/2006 12:00 AM Leg acy document. See document viewer. Care Teams Core Java Software Engineer Relationship Specialty Start Date End Date Elsewhere, Pcp PCP - General Family Medicine 01/02/21
--- OUTSIDE RECORDS SUMMARY | 2024-02-09 14:37 | XMS_ITS | Encounter Summary ---
Author Organization [facility] Address [address] [place] [address] Care Team Providers Care Biomedical Specialist Name Role Phone Elsewhere, Pcp Primary Care Provider Unavailabl e Encounter Details Date Type Department Care Team (Late st Contact Info) Description 10/11/2015 Historical Ophthalmology [facility] Trish Granda M.D. [address] [address] Social History Tobacco Use Types [...] Refractive error CDM Reports - EYEGEN Id: [id number] Status: Fnl documented in this encounter Plan of Treatment Not on file documented as of this encounter Visit Diagnoses Not on filedocumented in this encounter Care Teams Biomedical Specialist Relationship Specialty Start Date End Date Elsewhere, Pcp PCP - General Family Medicine 01/02/21 documented as of this encounter
--- OUTSIDE RECORDS SUMMARY | 2024-02-09 14:37 | XMS_ITS | Encounter Summary ---
Author Organization [facility] Address [address] [place] [address] Care Team Providers Care Meat Supervisor Name Role Phone Elsewhere, Pcp Primary Care Provider Unavailabl e Encounter Details Date Type Department Care Team (Late st Contact Info) Description 05/31/2014 Historical Ophthalmology [facility] Giovanna Moy M.D. [address] [place] [address] Social History Tobacco Use Types Packs/Day Years [...] astigmatism, presbyopia). CDM Reports - EYEGEN Id: [id number] Status: Fnl documented in this encounter Plan of Treatment Not on file documented as of this encounter Visit Diagnoses Not on filedocumented in this encounter Care Teams Meat Supervisor Relationship Specialty Start Date End Date Elsewhere, Pcp PCP - General Family Medicine 01/02/21 documented as of this encounter
--- OUTSIDE RECORDS SUMMARY | 2024-02-09 14:37 | XMS_ITS | Encounter Summary ---
Author Organization [facility] Address [address] [place] [address] Care Team Providers Care Craft Artist Name Role Phone Elsewhere, Pcp Primary Care Provider Unavailabl e Reason for Referral * Outpatient (Routine) - Authorized Specialty Diagnoses / Procedures Referred By Contac t Referred To Contact Ophthalmology Azra Alexander O.D. [address] [place] [address] [facility] Referral ID Status Reason Start Date Expiration Date V isits Requested Visits Authorized [id number] Authorized 02/05/2024 08/06/2025 1 1 * Outpatient (Routine) - Authorized Specialty Diagnoses / Procedures Referred By Contac t Referred To Contact Ophthalmology Diagnoses Dermatochalasis Right Upper Eyelid Azra Alexander O.D. [address] [place] [address] [facility] Referral ID Status Reason Start Date Expiration Date V isits Requested Visits Authorized [id number] Authorized 02/05/2024 08/06/2025 1 1 Reason for Visit * Outpatient (Routine) - Closed Specialty Diagnoses / Procedures Referred By Contac t Referred To Contact Ophthalmology Azra Alexander O.D. [address] [place] [address] [facility] Referral ID Status Reason Start Date Expiration Date Visits Re quested Visits Authorized [id number] Closed 01/18/2024 07/19/2025 1 1 Encounter Details Date Type Department Care Team (Latest Contact Info) Description 02/05/2024 8:30 AM CDT Office Visit Department of Ophthalmology in [place], [place] [address] [place] [phone] Azra Alexander O.D. [address] [place] [address] Glaucoma Open Angle Borderline High Risk Bilateral (Primary Dx); Dermatochalasis Right Upper Eyelid Social History Tobacco Use Types Packs/Day Years Used Date Smoking Tobacco: Former Cigarettes 0.5 38 0 02/18/1959 - 02/18/1997 Smokeless Tobacco: Never Alcohol Use Standard Drinks/Week Comments Yes 7 (1 standard drink = 0.6 oz pur e alcohol) 1/night [facility] Utilities Answer Date Recorded In the past 12 months has e [place], gas, oil, or water [employer] threatened to shut off services in your [...] often do you attend chur ch or rastafarian services? Never 04/22/2022 Do you belong to any clubs o r organizations such as yarsani groups, unions, fraternal or athletic groups, or [...] Answer Date Recorded PHQ-2 Score 1 04/22/2022 [facility] Occupat ional Health - [...] medical appointments or from getting medications? No 06/2 08/2023 In the past 12 months, has l [...] your living situation today? I have a [facility] place to live 01/10/2024 Education [...] Progress Notes * Azra Alexander O.D. - 02/05/2024 8:30 AM CDT #1 Glaucoma suspect based [...] first available due to concerns right eye. 01/2024: Tomy: Re scatter, fl. Le scatter. Both stable. OCT: rnfl 82/80, re green. Le susp thin temp. Both likely stable. Observe off meds She is noting a film across the temporal portion of the right eye--maybe seeing the pvd otherwise no etiology to explain this. She will also raise her right lid to see if she is seeing lid or lashes. RTC 6 mo with tomy and oct #2 Pseudophakia, both 06/2023 PCO left eye [...] blockage from her lids is getting worse. 01/2024: order oculoplastics consult #5 Myokymia, right Discussed etiology, cold compress [...] Open Angle Borderline High Risk Bilateral Expected: 08/07/2024, Expires: 05/07/2025 Automated VF - Extended - OU - Both Eyes Ophthalmology Routine Glaucoma Open Angle Borderline High Risk Bilateral Expected: 08/07/2024, Expires: 05/07/2025 Scheduled Referrals Name Type Priority Associated Diagnoses Order Schedule Ophthalmology - Oculoplastic and orbital surgery consult (clinic) Outpatient Referral Routine Dermatochalasis Right Upper Eyelid Expected: 02/05/2024, Expires: 05/07/2025 Ophthalmology office visit (clinic) Outpatient Referral Routine Expected: 08/07/2024 (Approximate), Expires: 05/07/2025 documented as of this encounter Visit Diagnoses Diagnosis Glaucoma Open Angle Borderline High Risk Bilateral- Primary Dermatochalasis Right Upper Eyelid documented in this encounter Additional Health Concerns Assessment Noted Time PHQ-9 Depression Total Score: 3 07/26/19 21 1:11 PM REED FIXER documented as of this encounter Care Teams Craft Artist Relationship Specialty Start Date End Date Elsewhere, Pcp PCP - General Family Medicine 01/02/21 documented as of this encounter
--- OUTSIDE RECORDS SUMMARY | 2024-02-09 14:37 | XMS_ITS | Encounter Summary ---
Author Organization [facility] Address [address] [place] [address] Care Team Providers Care Furniture Decals Inspector Name Role Phone Elsewhere, Pcp Primary Care Provider Unavailabl e Encounter Details Date Type Department Care Team (Late st Contact Info) Description 01/15/2024 6:35 AM CDT Ancillary Procedure Department of Ophthalmology Social History Tobacco Use Types Packs/Day Years Used Date Smoking Tobacco: Former Cigarettes 0.5 38 0 02/18/1959 - 02/18/1997 Smokeless Tobacco: Never Alcohol Use Standard Drinks/Week Comments Yes 7 (1 standard drink = 0.6 oz pur e alcohol) 1/night [facility] Utilities Answer Date Recorded In [...] often do you attend chur ch or confucianist services? Never 04/22/2022 Do you belong to any clubs o r organizations such as hinduism groups, unions, fraternal or athletic groups, or [...] Answer Date Recorded PHQ-2 Score 1 04/22/2022 [facility] Occupat ional Health - Occupational [...] your living situation today? I have a [facility] place to live 01/10/2024 Education Answer Date [...] Associated Diagnosis Comments OPHTHALMOLOGY IMAGE EXAM Routine 01/15/2024 6:35 AM CDT documented in this encounter Results * Visual Coffey (VF)-Ophthalmology Image Exam (01/15/2024 6:35 AM CDT) 01/15/2024 6:31 AM CDT Narrative IIMS - 01/15/2024 8:43 AM CDT This order has been created [...] Total Score: 3 07/26/19 21 1:11 PM BUSINESS MANAGEMENT INTERN documented as of this encounter Care Teams Furniture Decals Inspector Relationship Specialty Start Date End Date Elsewhere, Pcp PCP - General Family Medicine 01/02/21 documented as of this encounter
--- OUTSIDE RECORDS SUMMARY | 2024-02-09 14:37 | XMS_ITS | Encounter Summary ---
Author Organization [facility] Address [address] [place] [address] Care Team Providers Care Clip On Sunglasses Inspector Name Role Phone Elsewhere, Pcp Primary Care Provider Unavailabl e Encounter Details Date Type Department Care Team (Late st Contact Info) Description 11/24/2015 Historical Ophthalmology [facility] Trish Granda M.D. [address] [address] Social History Tobacco Use Types [...] New Rx CDM Reports - EYESV Id: [id number] Status: Fnl documented in this encounter Plan of Treatment Not on file documented as of this encounter Visit Diagnoses Not on filedocumented in this encounter Care Teams Clip On Sunglasses Inspector Relationship Specialty Start Date End Date Elsewhere, Pcp PCP - General Family Medicine 01/02/21 documented as of this encounter
--- OUTSIDE RECORDS SUMMARY | 2024-02-09 14:37 | XMS_ITS | Encounter Summary ---
Author Organization [facility] Address [address] [place] [address] Care Team Providers Care Ranch Cook Name Role Phone Elsewhere, Pcp Primary Care Provider Unavailabl e Encounter Details Date Type Department Care Team (Late st Contact Info) Description 01/15/2024 9:15 AM CDT Ancillary Procedure Department of Ophthalmology Social History Tobacco Use Types Packs/Day Years Used Date Smoking Tobacco: Former Cigarettes 0.5 38 0 02/18/1959 - 02/18/1997 Smokeless Tobacco: Never Alcohol Use Standard Drinks/Week Comments Yes 7 (1 standard drink = 0.6 oz pur e alcohol) 1/night [facility] Utilities Answer Date Recorded In the past [...] often do you attend chur ch or yazidism services? Never 04/22/2022 Do you belong to any clubs o r organizations such as jew groups, unions, fraternal or athletic groups, or [...] Answer Date Recorded PHQ-2 Score 1 04/22/2022 [facility] of Occupat ional Health - [...] your living situation today? I have a [facility] place to live 01/10/2024 Education Answer [...] Diagnosis Comments OPHTHALMOLOGY IMAGE EXAM Routine 01/15/2024 9:15 AM CDT documented in this encounter Results * Optical Coherence Tomography (OCT)-Ophthalmology Image Exam (01/15/2024 9:15 AM CDT) 01/15/2024 9:15 AM CDT Narrative IIMS - [...] Total Score: 3 07/26/19 21 1:11 PM OCTAVE BOARD RACKER documented as of this encounter Care Teams Ranch Cook Relationship Specialty Start Date End Date Elsewhere, Pcp PCP - General Family Medicine 01/02/21 documented as of this encounter
--- OUTSIDE RECORDS SUMMARY | 2024-02-09 14:37 | XMS_ITS | Encounter Summary ---
Author Organization [facility] Address [address] [place] [address] Care Team Providers Care Training Associate Name Role Phone Elsewhere, Pcp Primary Care [...] Document Viewer. CDM Reports - EYECL Id: [id number] Status: Fnl documented in this encounter Plan of Treatment Not on file documented as of this encounter Visit Diagnoses Not on filedocumented in this encounter Care Teams Training Associate Relationship Specialty Start Date End Date Elsewhere, Pcp PCP - General Family Medicine 01/02/21 documented as of this encounter
--- OUTSIDE RECORDS SUMMARY | 2024-02-09 14:37 | XMS_ITS | Encounter Summary ---
Author Organization [facility] Address [address] [place] [address] Care Team Providers Care Implementation Lead Name Role Phone Elsewhere, Pcp Primary Care Provider Unavailabl e Encounter Details Date Type Department Care Team (Late st Contact Info) Description 04/07/2014 Historical Ophthalmology [facility] Azra Alexander O.D. [address] [place] [address] Social History Tobacco Use Types Packs/Day Years Used Date Smoking Tobacco: Never Assessed Sex and Gender Information Value Date Recorded Sex Assigned at Female 04/05/2021 8:26 AM CDT Gender Identity Female 04/05/2021 8:26 AM CDT Sexual Orientation Straight 04/05/2021 8: 26 AM CDT documented as of this encounter Progress Notes * Azra Alexander O.D. - 04/07/2014 12:44 PM CDT Eye General CHIEF COMPLAINT Blurry vision HISTORY OF PRESENT ILLNESS LUISANA 1 year ago. Patient wears monthly replacement contacts, radio time buyer. Patient also has distance only eyeglasses worn [...] error (hyperopic astigmatism, presbyopia). CDM Reports - [facility] Id: [id number] Status: Fnl documented in this encounter Plan of Treatment Not on file documented as of this encounter Visit Diagnoses Not on filedocumented in this encounter Care Teams Implementation Lead Relationship Specialty Start Date End Date Elsewhere, Pcp PCP - General Family Medicine 01/02/21 documented as of this encounter
--- OUTSIDE RECORDS SUMMARY | 2024-02-09 14:38 | XMS_ITS | Encounter Summary ---
Author Organization [facility] Address [address] [place] [address] Care Team Providers Care High School Combination Teacher Name Role Phone Elsewhere, Pcp Primary Care [...] Hyperopia, presbyopia CDM Reports - EYEGEN Id: [id number] Status: Fnl documented in this encounter Plan of Treatment Not on file documented as of this encounter Visit Diagnoses Not on filedocumented in this encounter Care Teams High School Combination Teacher Relationship Specialty Start Date End Date Elsewhere, Pcp PCP - General Family Medicine 01/02/21 documented as of this encounter
--- OUTSIDE RECORDS SUMMARY | 2024-02-09 14:38 | XMS_ITS | Encounter Summary ---
Author Organization [facility] Address [address] [place] [address] Care Team Providers Care Administrative Services Manager Name Role Phone Elsewhere, Pcp Primary Care Provider Unavailabl e Encounter Details Date Type Department Care Team (Late st Contact Info) Description 02/18/2006 Historical Ophthalmology [facility] Debbie Gandara O.D. [address] [place] [address] Social History Tobacco Use Types Packs/Day Years [...] Document Viewer. CDM Reports - EYECL Id: [id number] Status: Fnl documented in this encounter Plan of Treatment Not on file documented as of this encounter Visit Diagnoses Not on filedocumented in this encounter Care Teams Administrative Services Manager Relationship Specialty Start Date End Date Elsewhere, Pcp PCP - General Family Medicine 01/02/21 documented as of this encounter
--- OUTSIDE RECORDS SUMMARY | 2024-02-09 14:38 | XMS_ITS | Encounter Summary ---
Author Organization [facility] Address [address] [place] [address] Care Team Providers Care Dairy Quality Assurance Officer Name Role Phone Elsewhere, Pcp Primary Care Provider Unavailabl e Encounter Details Date Type Department Care Team (Late st Contact Info) Description 12/06/2005 Historical Ophthalmology [facility] Robert Cha M.D. [address] [place] [phone] Social History Tobacco Use Types Packs/Day Years [...] of continous wear. Contact lenses supplied from [employer], following an exam done in [place] 2-3 years ago. Has a 2 month supply of lenses left. Wants to set up a future appointment for a contact lens evaluation here. Would like to have better reading and distant vision. Denies eye pain, occasional floaters, flashes, or diplopia. IMPRESSION / REPORT / PLAN #1 Hyperopia, presbyopia Gave updated glasses Rx. Patient [place] [facility]. DIAGNOSIS #1 Hyperopia, presbyopia CDM Reports - EYEGEN Id: [id number] Status: Fnl documented in this encounter Plan of Treatment Not on file documented as of this encounter Visit Diagnoses Not on filedocumented in this encounter Care Teams Dairy Quality Assurance Officer Relationship Specialty Start Date End Date Elsewhere, Pcp PCP - General Family Medicine 01/02/21 documented as of this encounter
--- OUTSIDE RECORDS SUMMARY | 2024-02-09 14:38 | XMS_ITS | Clinical Summary ---
Author Organization [facility] Address [place], [place] [address] Care Team Providers Care Communications Analyst Name Role Phone Jihan Casillas MD Primary Care Provider [phone] Allergies Active Allergy Reactions Criticality Noted Date [...] Take 1 capsule by mouth once daily. 09/27/2013 Active NITROSTAT 0.4 mg SL tablet As needed for chest pain 08/30/2013 Active Active Problems No known active [...] season) 2023 04/22/2022 Influenza for age 65+ 03/21/2024 05/22/2022 , 05/14/2021, 04/24/2020, Additional history exists Tdap Completed 10/06/2012 Pneumococcal series for age 65+ Completed 6, 06/29/2008 Zoster (shingles) series for age 50+ Completed 06/27/2019, 04/10/2019, 08/02/2009 Care Teams Communications Analyst Relationship Specialty Start Date End Date Jihan Casillas MD [address] [place] [address] PCP - General Internal Medicine 04/27/19
== END 2024-02-09 14:34 | disposition home or self-care (01) ==
PROVIDERS: PCP Internal Medicine; Visit Provider Internal Medicine
DX: R00.2 Palpitations (principal); E78.5 Hyperlipidemia, unspecified; M85.80 Other specified disorders of bone density and structure, unspecified site
CPT/HCPCS: 80053; 83735; 84443

== ENCOUNTER 2024-05-27 16:09 | Outpatient (CLI) | payer OTHER, SELFPAY ==
--- OUTSIDE RECORDS SUMMARY | 2024-05-27 16:22 | XMS_ITS | Encounter Summary ---
Author Organization [facility] Address [address] [place] [address] Care Team Providers Care Ophthalmic Technician Apprentice Name Role Phone Elsewhere, Pcp Primary Care Provider Unavailabl e Encounter Details Date Type Department Care Team (Late st Contact Info) Description 10/11/2015 Historical Ophthalmology [facility] Trish Granda M.D. [address] [address] Social History Tobacco Use Types Packs/Day Years Used Date Smoking Tobacco: Never Assessed Comments Unknown Sex and Gender Information Value Date Recorded Sex Assigned at Female 04/05/2021 8:26 AM CDT Legal Sex Female 10:17 AM SENIOR ELECTRONICS ENGINEER Gender Identity Female 04/05/2021 8:26 AM CDT [...] Refractive error CDM Reports - EYEGEN Id: [id number] Status: Fnl documented in this encounter Plan of Treatment Upcoming Encounters Date Type Department Care Team (Latest Contact Info) Description 06/07/2024 1:30 PM SENIOR ELECTRONICS ENGINEER Clinical Communication Virtual Review in [address] [address] 06/10/2024 3:00 PM SENIOR ELECTRONICS ENGINEER Ancillary Procedure Department of Ophthalmology in [address] [address] Maninder Castillo M.D. [address] [place] [phone] 06/10/2024 3:30 PM SENIOR ELECTRONICS ENGINEER Ancillary Procedure Department of Ophthalmology in [address] [address] 06/10/2024 4:00 PM SENIOR ELECTRONICS ENGINEER Comprehensive Visit Department of Ophthalmology in [address] [address] Maninder Castillo M.D. [address] [place] [address] 08/13/2024 8:45 AM SENIOR ELECTRONICS ENGINEER Clinical Communication Virtual Review in [address] [address] 08/16/2024 7:00 AM SENIOR ELECTRONICS ENGINEER Ancillary Procedure Department of Ophthalmology in [place], [place] [address] [place] [phone] Azra Alexander O.D. [address] [place] [phone] 08/16/2024 7:30 AM SENIOR ELECTRONICS ENGINEER Ancillary Procedure Department of Ophthalmology in [place], [place] [address] [place] [phone] [phone] 08/16/2024 8:00 AM SENIOR ELECTRONICS ENGINEER Ancillary Procedure Department of Ophthalmology in [place] [address] [place] [address] Azra Alexander O.D. [address] [place] [address] 08/16/2024 10:00 AM SENIOR ELECTRONICS ENGINEER Office Visit Department of Ophthalmology in [place], [place] [address] [place] [address] Azra Alexander O.D. [address] [place] [address] documented as of this encounter Visit Diagnoses Not on filedocumented in this encounter Care Teams Ophthalmic Technician Apprentice Relationship Specialty Start Date End Date Elsewhere, Pcp PCP - General Family Medicine 01/02/21 documented as of this encounter
--- OUTSIDE RECORDS SUMMARY | 2024-05-27 16:22 | XMS_ITS | Encounter Summary ---
Author Organization [facility] Address [address] [place] [address] Care Team Providers Care Pre Kindergarten Teacher Name Role Phone Elsewhere, Pcp Primary Care Provider Unavailabl e Encounter Details Date Type Department Care Team (Late st Contact Info) Description 05/12/2017 Historical Ophthalmology RST OPH Azra Alexander O.D. [address] [place] [address] Social History Tobacco Use Types Packs/Day Years Used Date Smoking Tobacco: Former Comments Unknown Sex and Gender Information Value Date Recorded Sex Assigned at Female 04/05/2021 8:26 AM CDT Legal Sex Female 10:17 AM JOURNEYMAN LEVEL ACOUSTIC ANALYST Gender Identity Female 04/05/2021 8:26 AM CDT [...] denies ocular pain. GMS: had exam at [facility] for her contacts. IMPRESSION / REPORT [...] Refractive error CDM Reports - EYEGEN Id: [id number] Status: Fnl documented in this encounter Plan of Treatment Upcoming Encounters Date Type Department Care Team (Latest Contact Info) Description 06/07/2024 1:30 PM JOURNEYMAN LEVEL ACOUSTIC ANALYST Clinical Communication Virtual Review in [place], [place] [address] [place] [phone] 06/10/2024 3:00 PM JOURNEYMAN LEVEL ACOUSTIC ANALYST Ancillary Procedure Department of Ophthalmology in [place], [place] [address] [place] [phone] Maninder Castillo M.D. [address] [place] [phone] 06/10/2024 3:30 PM JOURNEYMAN LEVEL ACOUSTIC ANALYST Ancillary Procedure Department of Ophthalmology in [place], [place] [address] [place] [phone] 06/10/2024 4:00 PM JOURNEYMAN LEVEL ACOUSTIC ANALYST Comprehensive Visit Department of Ophthalmology in [place], [place] [address] [place] [phone] Maninder Castillo M.D. [address] [place] [phone] 08/13/2024 8:45 AM JOURNEYMAN LEVEL ACOUSTIC ANALYST Clinical Communication Virtual Review in [place], [place] [address] [place] [address] 08/16/2024 7:00 AM JOURNEYMAN LEVEL ACOUSTIC ANALYST Ancillary Procedure Department of Ophthalmology in [place], [place] [address] [place] [phone] Azra Alexander O.D. [address] [place] [phone] 08/16/2024 7:30 AM JOURNEYMAN LEVEL ACOUSTIC ANALYST Ancillary Procedure Department of Ophthalmology in [place], [place] [address] [place] [phone] 08/16/2024 8:00 AM JOURNEYMAN LEVEL ACOUSTIC ANALYST Ancillary Procedure Department of Ophthalmology in [place] [address] [place] [phone] Azra Alexander O.D. [address] [place] [phone] 08/16/2024 10:00 AM JOURNEYMAN LEVEL ACOUSTIC ANALYST Office Visit Department of Ophthalmology in [place], [place] [address] [place] [phone] Azra Alexander O.D. [address] [place] [phone] documented as of this encounter Visit Diagnoses Not on filedocumented in this encounter Care Teams Pre Kindergarten Teacher Relationship Specialty Start Date End Date Elsewhere, Pcp PCP - General Family Medicine 01/02/21 documented as of this encounter
--- OUTSIDE RECORDS SUMMARY | 2024-05-27 16:22 | XMS_ITS | Encounter Summary ---
Author Organization [facility] Address [address] [place] [address] Care Team Providers Care Instructor Looping Name Role Phone Elsewhere, Pcp Primary Care Provider Unavailabl e Encounter Details Date Type Department Care Team (Latest Contact Info) Description 03/23/2024 Orders Only Department of Ophthalmology in [place], [place] [address] [place] [address] Maninder Castillo M.D. [address] [place] [address] Dermatochalasis Right Upper Eyelid (Primary Dx) Social History Tobacco Use Types Packs/Day Years Used Date Smoking Tobacco: Former Cigarettes 0.5 38 0 02/18/1959 - 02/18/1997 Smokeless Tobacco: Never Alcohol Use Standard Drinks/Week Comments Yes 7 (1 standard drink = 0.6 oz pur e alcohol) 1/night [facility] Utilities Answer Date Recorded In the past 12 months has e [employer], gas, oil, or water [employer] threatened to shut off services in your [...] How often do you attend chur or taoist services? Never 04/22/2022 Do you belong to any clubs o r organizations such as mandaeism groups, unions, fraternal or athletic groups, or [...] Date Recorded PHQ-2 Score 1 04/22/2022 [facility] of Occupat ional Health - [...] your living situation today? [facility] a [facility] live 01/10/2024 Education Answer Date Recorded What is the highest level of school you have completed or the highest degree you have received? Associate degree: occupational, technical, or vocational program 02/23/2020 Comments No Sex and Gender Information Value Date Recorded Sex Assigned at Female 04/05/2021 8:26 AM CDT Legal Sex Female 10:17 AM SCHOOL EXAMINER Gender Identity Female 04/05/2021 8:26 AM CDT Sexual Orientation Straight 04/05/2021 8: 26 AM CDT documented as of this encounter Plan of Treatment Upcoming Encounters Date Type Department Care Team (Latest Contact Info) Description 06/07/2024 1:30 PM SCHOOL EXAMINER Clinical Communication Virtual Review in [place], [place] 200 [place] [address] 06/10/2024 3:00 PM SCHOOL EXAMINER Ancillary Procedure Department of Ophthalmology in [place], [place] [address] [place] [phone] Maninder Castillo M.D. [address] [place] [phone] 06/10/2024 3:30 PM SCHOOL EXAMINER Ancillary Procedure Department of Ophthalmology in [place], [place] [address] [place] [phone] 06/10/2024 4:00 PM SCHOOL EXAMINER Comprehensive Visit Department of Ophthalmology in [place], [place] [address] [place] [phone] Maninder Castillo M.D. [address] [place] [phone] 08/13/2024 8:45 AM SCHOOL EXAMINER Clinical Communication Virtual Review in [place], [place] 200 [place] [phone] 08/16/2024 7:00 AM SCHOOL EXAMINER Ancillary Procedure Department of Ophthalmology in [place], [place] [address] [place] [phone] Azra Alexander O.D. [address] [place] [phone] 08/16/2024 7:30 AM SCHOOL EXAMINER Ancillary Procedure Department of Ophthalmology in [place], [place] [address] [place] [phone] 08/16/2024 8:00 AM SCHOOL EXAMINER Ancillary Procedure Department of Ophthalmology in [place] [address] [place] [phone] Azra Alexander O.D. [address] [place] [phone] 08/16/2024 10:00 AM SCHOOL EXAMINER Office Visit Department of Ophthalmology in [place], [place] [address] [place] [phone] Azra Alexander O.D. [address] [place] [phone] Scheduled Orders Name Type Priority Associated Diagnoses Orde r Schedule Automated VF - Limited - OU - Both Eyes Ophthalmology Routine Dermatochalasis Right Upper Eyelid Expected: 06/10/2024, Expires: 06/22/2025 documented as of this encounter Visit Diagnoses Diagnosis Dermatochalasis Right Upper Eyelid- Primary documented in this encounter Additional Health Concerns Assessment Noted Time PHQ-9 Depression Total Score: 3 07/26/19 21 1:11 PM SCHOOL EXAMINER documented as of this encounter Care Teams Instructor Looping Relationship Specialty Start Date End Date Elsewhere, Pcp PCP - General Family Medicine 01/02/21 documented as of this encounter
--- OUTSIDE RECORDS SUMMARY | 2024-05-27 16:22 | XMS_ITS | Encounter Summary ---
Author Organization [facility] Address [address] [place] [address] Care Team Providers Care Home Sales Consultant Name Role Phone Elsewhere, Pcp Primary Care Provider Unavailabl e Encounter Details Date Type Department Care Team ( Contact Info) Description 11/01/2014 Historical Ophthalmology RST OPH Karolyn Oropeza O.D. [address] [place] [address] Social History Tobacco Use Types Packs/Day Years Used Date Smoking Tobacco: Never Assessed Comments Unknown Sex and Gender Information Value Date Recorded Sex Assigned at Female 04/05/2021 8:26 AM CDT Legal Sex Female 10:17 AM BARREL REPAIRER Gender Identity Female 04/05/2021 8:26 AM CDT Sexual Orientation Straight 04/05/2021 8: 26 AM CDT documented as of this encounter Progress Notes * Karolyn Lopez O.D. - 11/01/2014 11:40 AM CDT Contact Lens Exam MULTI-VISIT DOCUMENT This document contains multiple patient visits and is available for review in Document Viewer. CDM Reports - EYECL Id: [id number] Status: Fnl documented in this encounter Plan of Treatment Upcoming Encounters Date Type Department Care Team (Latest Contact Info) Description 06/07/2024 1:30 PM BARREL REPAIRER Clinical Communication Virtual Review in [place], [place] 200 [place] [phone] 06/10/2024 3:00 PM BARREL REPAIRER Ancillary Procedure Department of Ophthalmology in [place], [place] [address] [place] [phone] Maninder Castillo M.D. [address] [place] [phone] 06/10/2024 3:30 PM BARREL REPAIRER Ancillary Procedure Department of Ophthalmology in [place], [place] [address] [place] [phone] 06/10/2024 4:00 PM BARREL REPAIRER Comprehensive Visit Department of Ophthalmology in [address] [phone] Maninder Castillo M.D. [address] [place] [phone] 08/13/2024 8:45 AM BARREL REPAIRER Clinical Communication Virtual Review in [place], [place] 200 [place] [phone] 08/16/2024 7:00 AM BARREL REPAIRER Ancillary Procedure Department of Ophthalmology in [place] [address] [place] [phone] Azra Alexander O.D. [address] [place] [phone] 08/16/2024 7:30 AM BARREL REPAIRER Ancillary Procedure Department of Ophthalmology in [place] [address] [place] [phone] 08/16/2024 8:00 AM BARREL REPAIRER Ancillary Procedure Department of Ophthalmology in [place] [address] [place] [phone] Azra Alexander O.D. [address] [place] [phone] 08/16/2024 10:00 AM BARREL REPAIRER Office Visit Department of Ophthalmology in [place], [place] [address] [place] [phone] Azra Alexander O.D. [address] [place] [address] documented as of this encounter Visit Diagnoses Not on filedocumented in this encounter Care Teams Home Sales Consultant Relationship Specialty Start Date End Date Elsewhere, Pcp PCP - General Family Medicine 01/02/21 documented as of this encounter
--- OUTSIDE RECORDS SUMMARY | 2024-05-27 16:22 | XMS_ITS | Encounter Summary ---
Author Organization [facility] Address [address] [place] [address] Care Team Providers Care Compressor Service Technician Name Role Phone Elsewhere, Pcp Primary Care Provider Unavailabl e Reason for Visit * Reason Onset Date Comments Pre-visit Testing Orders 03/23/2024 Encounter Details Date Type Department Care Team (Latest Contact Info) Description 03/23/2024 Clinical Communication Department of Ophthalmology in [place], [place] [address] [place] [address] Maninder Castillo M.D. [address] [place] [address] Pre-visit Testing Orders Social History Tobacco Use Types Packs/Day Years Used Date Smoking Tobacco: Former Cigarettes 0.5 38 0 02/18/1959 - 02/18/1997 Smokeless Tobacco: Never Alcohol Use Standard Drinks/Week Comments Yes 7 (1 standard drink = 0.6 oz pur e alcohol) 1/night [facility] Utilities Answer Date Recorded In the past 12 months has th e [employer], gas, oil, or water [employer] threatened to shut off services in your [...] often do you attend chur ch or confucianism services? Never 04/22/2022 Do you belong to [...] Answer Date Recorded PHQ-2 Score 1 04/22/2022 [facility] of Occupat ional Health - Occupational Stress [...] your living situation today? I have a [facility] place to live 01/10/2024 Education Answer Date Recorded What is the highest level of school you have completed or the highest degree you have received? Associate degree: occupational, technical, or vocational program 02/23/2020 Comments No Sex and Gender Information Value Date Recorded Sex Assigned at Female 04/05/2021 8:26 AM CDT Legal Sex Female 10:17 AM WATER SKI ASSEMBLER Gender Identity Female 04/05/2021 8:26 AM CDT Sexual Orientation Straight 04/05/2021 8: 26 AM CDT documented as of this encounter Plan of Treatment Upcoming Encounters Date Type Department Care Team (Latest Contact Info) Description 06/07/2024 1:30 PM WATER SKI ASSEMBLER Clinical Communication Virtual Review in [place], [place] [address] [place] [address] 06/10/2024 3:00 PM WATER SKI ASSEMBLER Ancillary Procedure Department of Ophthalmology in [place], [place] [address] [place] [address] Maninder Castillo M.D. [address] [place] [phone] 06/10/2024 3:30 PM WATER SKI ASSEMBLER Ancillary Procedure Department of Ophthalmology in [place], [place] [address] [place] [phone] 06/10/2024 4:00 PM WATER SKI ASSEMBLER Comprehensive Visit Department of Ophthalmology in [place], [place] [address] [place] [phone] Maninder Castillo M.D. [address] [place] [phone] 08/13/2024 8:45 AM WATER SKI ASSEMBLER Clinical Communication Virtual Review in [place], [place] 200 [place] [address] 08/16/2024 7:00 AM WATER SKI ASSEMBLER Ancillary Procedure Department of Ophthalmology in [place], [place] [address] [place] [phone] Azra Alexander O.D. [address] [place] [phone] 08/16/2024 7:30 AM WATER SKI ASSEMBLER Ancillary Procedure Department of Ophthalmology in [place], [place] [address] [place] [address] 08/16/2024 8:00 AM WATER SKI ASSEMBLER Ancillary Procedure Department of Ophthalmology in [place] [address] [place] [phone] Azra Alexander O.D. [address] [place] [phone] 08/16/2024 10:00 AM WATER SKI ASSEMBLER Office Visit Department of Ophthalmology in [place] [address] [place] [address] Azra Alexander O.D. [address] [place] [phone] documented as of this encounter Visit Diagnoses Not on filedocumented in this encounter Additional Health Concerns Assessment Noted Time PHQ-9 Depression Total Score: 3 07/26/19 21 1:11 PM WATER SKI ASSEMBLER documented as of this encounter Care Teams Compressor Service Technician Relationship Specialty Start Date End Date Elsewhere, Pcp PCP - General Family Medicine 01/02/21 documented as of this encounter
--- OUTSIDE RECORDS SUMMARY | 2024-05-27 16:22 | XMS_ITS | Encounter Summary ---
Author Organization [facility] Address [address] [place] [address] Care Team Providers Care Soloist Dancer Name Role Phone Elsewhere, Pcp Primary Care Provider Unavailabl e Encounter Details Date Type Department Care Team (Late st Contact Info) Description 04/22/2014 Historical Ophthalmology RST OPH Kavon Perales O.D. [address] [place] [phone] Social History Tobacco Use Types Packs/Day Years Used Date Smoking Tobacco: Never Assessed Comments Unknown Sex and Gender Information Value Date Recorded Sex Assigned at Female 04/05/2021 8:26 AM CDT Legal Sex Female 10:17 AM AUTOMOBILE RENTAL CLERK Gender Identity Female 04/05/2021 8:26 AM CDT Sexual Orientation Straight 04/05/2021 8: 26 AM CDT documented as of this encounter Progress Notes * Kavon Perales O.D. - 04/22/2014 2:23 PM CDT Contact Lens Exam MULTI-VISIT DOCUMENT This document contains multiple patient visits and is available for review in Document Viewer. CDM Reports - EYECL Id: [id number] Status: Fnl documented in this encounter Plan of Treatment Upcoming Encounters Date Type Department Care Team (Latest Contact Info) Description 06/07/2024 1:30 PM AUTOMOBILE RENTAL CLERK Clinical Communication Virtual Review in [place], [place] 200 [place] [address] 06/10/2024 3:00 PM AUTOMOBILE RENTAL CLERK Ancillary Procedure Department of Ophthalmology in [place], [place] [address] [place] [phone] Maninder Castillo M.D. [address] [place] [phone] 06/10/2024 3:30 PM AUTOMOBILE RENTAL CLERK Ancillary Procedure Department of Ophthalmology in [place], [place] [address] [place] [phone] 06/10/2024 4:00 PM AUTOMOBILE RENTAL CLERK Comprehensive Visit Department of Ophthalmology in [place], [place] [address] [place] [phone] Maninder Castillo M.D. [address] [place] [phone] 08/13/2024 8:45 AM AUTOMOBILE RENTAL CLERK Clinical Communication Virtual Review in [place], [place] 200 [place] [address] 08/16/2024 7:00 AM AUTOMOBILE RENTAL CLERK Ancillary Procedure Department of Ophthalmology in [place], [place] [address] [place] [phone] Azra Alexander O.D. [address] [place] [phone] 08/16/2024 7:30 AM AUTOMOBILE RENTAL CLERK Ancillary Procedure Department of Ophthalmology in [place], [place] [address] [place] [phone] 08/16/2024 8:00 AM AUTOMOBILE RENTAL CLERK Ancillary Procedure Department of Ophthalmology in [place], [place] [phone] Azra Alexander O.D. [address] [place] [phone] 08/16/2024 10:00 AM AUTOMOBILE RENTAL CLERK Office Visit Department of Ophthalmology in [place], [place] [address] [place] [phone] Azra Alexander O.D. [address] [place] [phone] documented as of this encounter Visit Diagnoses Not on filedocumented in this encounter Care Teams Soloist Dancer Relationship Specialty Start Date End Date Elsewhere, Pcp PCP - General Family Medicine 01/02/21 documented as of this encounter
--- OUTSIDE RECORDS SUMMARY | 2024-05-27 16:22 | XMS_ITS | Referral Summary ---
Author Organization [facility] Address [address] [place] [address] Care Team Providers Care Environmental Economist Name Role Phone Elsewhere, Pcp Primary Care Provider Unavailabl e Source Comments Patient records contain information from all sites at [facility]. For routine questions regarding patient records, call [phone] during business hours, M-F 8:00 AM - 5:00 PM Central Time. Record requests for emergency care only can be directed to [phone] at any time.[facility] Encounters Date Type Department Care Team Description 03/23/2024 Orders Only Department of Ophthalmology in [place], [place] [address] [place] [address] Maninder Castillo M.D. Dermatochalasis Right Upper Eyelid (Primary Dx) 03/23/2024 Clinical Communication Department of Ophthalmology in [place], [place] [address] [place] [address] Maninder Castillo M.D. Pre-visit Testing Orders 03/18/2024 Clinical Communication Department of Ophthalmology in [place] [address] [place] [phone] Azra Alexander O.D. Referral Request from Last 3 Months Allergies Active Allergy Reactions Criticality Noted Date Comments Erythromycin Base GI intolerance Low 04/14/2003 Penicillins Itching Low 04/02/2012 verified Medications * This document contains information received from the source organization and may not represent a complete record from that organization. aspirin [address] tablet Take 1 tablet by mouth every morning. 4 Active naproxen sodium (ALEVE/ANAPROX) 220 mg tablet Take 2 tablets by mouth as needed. pain 8 Active calcium carbonate/vitam in D3 (CALCIUM 600 + D,3, ORAL) Take 1 tablet by mouth every morning. 5 Active folic acid/multivit-m in/lutein (CENTRUM SILVER ORAL) Take 1 tablet by mouth every morning. 4 Active nitroglycerin (NITROSTAT) 0.[address] 1 TAB UNDER TONGUE NEEDED FOR CHEST PAIN, NO RELIEF IN 5MIN CALL 911 REPEAT DOSE EVERY 5MIN [id number] IF PAIN PERSIST 25 tablet 1 0 Active Additional Information Patient taking differently: 0.4 mg sublingual Every 5 min PRN, Reported on 04/16/2022 zolpidem (AMBIEN) 5 mg tablet Take 1 tablet (5 mg total) by mouth at bedtime as needed for sleep. 30 tablet 3 1 Active atorvastatin (LIPITOR) 20 mg tablet TAKE 1 TABLET EVERY DAY 90 tablet 3 2 Active Additional Information Patient taking differently: 20 [...] H1N1 Inj 08/02/2009 HZV (ZOSTAVAX) 08/02/2009 Influenza Split 05/21/2014, 3,04/20/2012,2010,04/20/2010,04/20/2008 Influenza TIV (IM) [...] Td, (Adult) Unspecified 10/02/1994 Tdap 10/06/2012 influenza trivalent high dos e (HD)(PF) 04/27/2019,04/20/2018,04/07/2017,2015,04/27/2015,05/24/2014,05/21/2014,1 influenza trivalent vaccine (6 months and older)(PF) 05/14/2011,05/22/2007 influenza vaccine quad (FLUZONE/FLUARIX) (6 months and older)(PF) 04/27/2019 Social History Tobacco Use Types Packs/Day Years Used Date Smoking Tobacco: Former Cigarettes 0.5 38 0 02/18/1959 - 02/18/1997 Smokeless Tobacco: Never Tobacco Cessation:Counseling Given: Not Answered Alcohol Use Standard Drinks/Week Comments Yes 7 (1 standard drink = 0.6 oz pur e alcohol) 1/night [facility] Utilities Answer Date Recorded In the past 12 months has e [employer], [employer], oil, or water [employer] threatened to shut off services in your [...] often do you attend chur ch or sabianism services? Never 04/22/2022 Do you belong to any clubs o r organizations such as anabaptist groups, unions, fraternal or athletic groups, or [...] Answer Date Recorded PHQ-2 Score 1 04/22/2022 [facility] of Occupat ional Health - Occupational [...] your living situation today? I have a [facility] place to live 01/10/2024 Education Answer Date Recorded What is the highest level of school you have completed or the highest degree you have received? Associate degree: occupational, technical, or vocational program 02/23/2020 Comments No Sex and Gender Information Value Date Recorded Sex Assigned at Female 04/05/2021 8:26 AM CDT Legal Sex Female 10:17 AM POWER GENERATION PLANT OPERATOR Gender Identity Female 04/05/2021 8:26 AM CDT [...] 10/21/2023 2:22 PM CDT Plan of Treatment Upcoming Encounters Date Type Department Care Team (Latest Contact Info) Description 06/07/2024 1:30 PM POWER GENERATION PLANT OPERATOR Clinical Communication Virtual Review in [place], [place] [address] [place] [address] 06/10/2024 3:00 PM POWER GENERATION PLANT OPERATOR Ancillary Procedure Department of Ophthalmology in [place], [place] [address] [place] [phone] Maninder Castillo M.D. [address] [place] [phone] 06/10/2024 3:30 PM POWER GENERATION PLANT OPERATOR Ancillary Procedure Department of Ophthalmology in [place], [place] [address] [place] [phone] 06/10/2024 4:00 PM POWER GENERATION PLANT OPERATOR Comprehensive Visit Department of Ophthalmology in [place], [place] [address] [place] [phone] Maninder Castillo M.D. [address] [place] [phone] 08/13/2024 8:45 AM POWER GENERATION PLANT OPERATOR Clinical Communication Virtual Review in [place], [place] 200 [place] [address] 08/16/2024 7:00 AM POWER GENERATION PLANT OPERATOR Ancillary Procedure Department of Ophthalmology in [place], [place] [address] [place] [phone] Azra Alexander O.D. [address] [place] [phone] 08/16/2024 7:30 AM POWER GENERATION PLANT OPERATOR Ancillary Procedure Department of Ophthalmology in [place] [address] [place] [phone] 08/16/2024 8:00 AM POWER GENERATION PLANT OPERATOR Ancillary Procedure Department of Ophthalmology in [place] [address] [place] [address] Azra Alexander O.D. [address] [place] [phone] 08/16/2024 10:00 AM POWER GENERATION PLANT OPERATOR Office Visit Department of Ophthalmology in [place] [address] [place] [phone] Azra Alexander O.D. [address] [place] [phone] Medical Devices Implanted Type Area Top Knitter Device Identifier Shelf Expiration Date Model / [...] Knee Implant Right: Knee Description:October 26, 2022 Insurance [employer] Advance Directives For more information, please contact: [phone] Documents on File Type Date Recorded Patient Clinical Office Technician Expl anation Advance Directives 04/09/2006 12:00 AM Leg acy document. See document viewer. Care Teams Environmental Economist Relationship Specialty Start Date End Date Elsewhere, Pcp PCP - General Family Medicine 01/02/21
--- OUTSIDE RECORDS SUMMARY | 2024-05-27 16:22 | XMS_ITS | Encounter Summary ---
Author Organization [facility] Address [address] [place] [address] Care Team Providers Care Sub Master Name Role Phone Elsewhere, Pcp Primary Care Provider Unavailabl e Encounter Details Date Type Department Care Team (Late st Contact Info) Description 05/31/2014 Historical Ophthalmology [facility] Giovanna Moy M.D. [address] [place] [address] Social History Tobacco Use Types Packs/Day Years Used Date Smoking Tobacco: Never Assessed Comments Unknown Sex and Gender Information Value Date Recorded Sex Assigned at Female 04/05/2021 8:26 AM CDT Legal Sex Female 10:17 AM STEEL FABRICATING SUPERVISOR Gender Identity Female 04/05/2021 8:26 AM CDT [...] astigmatism, presbyopia). CDM Reports - EYEGEN Id: [id number] Status: Fnl documented in this encounter Plan of Treatment Upcoming Encounters Date Type Department Care Team (Latest Contact Info) Description 06/07/2024 1:30 PM STEEL FABRICATING SUPERVISOR Clinical Communication Virtual Review in [address] [phone] 06/10/2024 3:00 PM STEEL FABRICATING SUPERVISOR Ancillary Procedure Department of Ophthalmology in [address] [phone] Maninder Castillo M.D. [address] [place] [phone] 06/10/2024 3:30 PM STEEL FABRICATING SUPERVISOR Ancillary Procedure Department of Ophthalmology in [address] [phone] 06/10/2024 4:00 PM STEEL FABRICATING SUPERVISOR Comprehensive Visit Department of Ophthalmology in [address] [address] Maninder Castillo M.D. [address] [place] [phone] 08/13/2024 8:45 AM STEEL FABRICATING SUPERVISOR Clinical Communication Virtual Review in [address] [phone] 08/16/2024 7:00 AM STEEL FABRICATING SUPERVISOR Ancillary Procedure Department of Ophthalmology in [place] [address] [place] [phone] Azra Alexander O.D. [address] [place] [phone] 08/16/2024 7:30 AM STEEL FABRICATING SUPERVISOR Ancillary Procedure Department of Ophthalmology in [place] [address] [place] [address] 08/16/2024 8:00 AM STEEL FABRICATING SUPERVISOR Ancillary Procedure Department of Ophthalmology in [place] [address] [place] [phone] Azra Aelxander O.D. [address] [place] [phone] 08/16/2024 10:00 AM STEEL FABRICATING SUPERVISOR Office Visit Department of Ophthalmology in [place] [address] [place] [address] Azra Alexander O.D. [address] [place] [phone] documented as of this encounter Visit Diagnoses Not on filedocumented in this encounter Care Teams Sub Master Relationship Specialty Start Date End Date Elsewhere, Pcp PCP - General Family Medicine 01/02/21 documented as of this encounter
--- OUTSIDE RECORDS SUMMARY | 2024-05-27 16:22 | XMS_ITS | Clinical Summary ---
Author Organization [facility] Address [address] [place] [address] Care Team Providers Care Mixer Slagman Name Role Phone Elsewhere, Pcp Primary Care Provider Unavailabl e Source Comments Patient records contain information from all sites at [facility]. For routine questions regarding patient records, call [phone] during business hours, M-F 8:00 AM - 5:00 PM Central Time. Record requests for emergency care only can be directed to [phone] at any time.[facility] Allergies Active Allergy Reactions Criticality Noted Date [...] 5MIN CALL 911 REPEAT DOSE EVERY 5MIN [id number] IF PAIN PERSIST 25 tablet 1 0 [...] 03/23/2024 Orders Only Department of Ophthalmology in [place], [place] [address] [place] [address] Maninder Castillo M.D. Dermatochalasis Right Upper Eyelid (Primary Dx) 03/23/2024 Clinical Communication Department of Ophthalmology in [place], [place] [address] [place] [address] Maninder Castillo M.D. Pre-visit Testing Orders 03/18/2024 Clinical Communication Department of Ophthalmology in [place] [address] [place] [address] Azra Alexander O.D. Referral Request from Last 3 Months Immunizations Name Administration [...] = 0.6 oz pur e alcohol) 1/night [place] Utilities Answer Date Recorded In the past [...] How often do you attend chur or alevism services? Never 04/22/2022 Do you belong to any clubs o r organizations such as tenriism groups, unions, fraternal or athletic groups, or [...] Answer Date Recorded PHQ-2 Score 1 04/22/2022 [facility] of Occupat ional Health - Occupational Stress [...] your living situation today? I have a [facility] place to live 01/10/2024 Education Answer Date Recorded What is the highest level of school you have completed or the highest degree you have received? Associate degree: occupational, technical, or vocational program 02/23/2020 Comments No Sex and Gender Information Value Date Recorded Sex Assigned at Female 04/05/2021 8:26 AM CDT Legal Sex Female 10:17 AM WAREHOUSE FREIGHT HANDLER Gender Identity Female 04/05/2021 8:26 AM CDT [...] (Latest Contact Info) Description 06/07/2024 1:30 PM WAREHOUSE FREIGHT HANDLER Clinical Communication Virtual Review in [address] [address] 06/10/2024 3:00 PM WAREHOUSE FREIGHT HANDLER Ancillary Procedure Department of Ophthalmology in [address] [phone] Maninder Castillo M.D. [address] [place] [phone] 06/10/2024 3:30 PM WAREHOUSE FREIGHT HANDLER Ancillary Procedure Department of Ophthalmology in [address] [address] 06/10/2024 4:00 PM WAREHOUSE FREIGHT HANDLER Comprehensive Visit Department of Ophthalmology in [address] [address] Maninder Castillo M.D. [address] [place] [phone] 08/13/2024 8:45 AM WAREHOUSE FREIGHT HANDLER Clinical Communication Virtual Review in [address] [address] 08/16/2024 7:00 AM WAREHOUSE FREIGHT HANDLER Ancillary Procedure Department of Ophthalmology in [place] [address] [place] [address] Azra Alexander O.D. [address] [place] [phone] 08/16/2024 7:30 AM WAREHOUSE FREIGHT HANDLER Ancillary Procedure Department of Ophthalmology in [place] [address] [place] [phone] 08/16/2024 8:00 AM WAREHOUSE FREIGHT HANDLER Ancillary Procedure Department of Ophthalmology in [place] [address] [place] [phone] Azra Alexander O.D. [address] [place] [phone] 08/16/2024 10:00 AM WAREHOUSE FREIGHT HANDLER Office Visit Department of Ophthalmology in [place] [address] [place] [phone] Azra Alexander O.D. [address] [place] [phone] Health Maintenance Due Date Last Done Comments Depression Screening (Annual PHQ-2) 07/21/2023 Fall Risk Screen (Annual) 07/21/2023 COVID-19 Vaccine ( season) 2024 04/16/2023, 04/22/2022, 11/06/2021, Additional history exists Influenza Vaccine (#1) 2024 , 05/22/2022, 05/14/2021, Additional history exists DTaP,Tdap,and Td Vaccines (3 - Td or Tdap) 06/18/2033 06/18/2023, 10/06/2012, 03/29/2005, Additional history exists Pneumococcal vaccine (65+ years) Completed 11/24/2015, 06/29/2008 Zoster Vaccines Completed 06/27/2019, 03/22, 08/02/2009 RSV vaccine - (32-36 weeks) or 60+ years Completed 06/30/2023 HPV Vaccines Aged Out No longer eligi ble based on patient's age to complete this topic IPV Vaccines Aged Out No longer eligi ble based on patient's age to complete this topic Medical Devices Implanted Type Area Stable Hand Device Identifier Shelf Expiration Date Model / [...] Advance Directives For more information, please contact: [phone] Documents on File Type Date Recorded Patient Car Blocker Expl anation Advance Directives 04/09/2006 12:00 AM Leg acy document. See document viewer. Care Teams Mixer Slagman Relationship Specialty Start Date End Date Elsewhere, Pcp PCP - General Family Medicine 01/02/21
--- OUTSIDE RECORDS SUMMARY | 2024-05-27 16:22 | XMS_ITS | Encounter Summary ---
Author Organization [facility] Address [address] [place] [address] Care Team Providers Care School Manager Name Role Phone Elsewhere, Pcp Primary Care Provider Unavailabl e Reason for Visit * Reason Onset Date Comments Referral Request 03/18/2024 Encounter Details Date Type Department Care Team (Latest Contact Info) Description 03/18/2024 Clinical Communication Department of Ophthalmology in [place] [address] [place] [phone] Azra Alexander O.D. [address] [place] [address] Referral Request Social History Tobacco Use Types Packs/Day Years Used Date Smoking Tobacco: Former Cigarettes 0.5 38 0 02/18/1959 - 02/18/1997 Smokeless Tobacco: Never Alcohol Use Standard Drinks/Week Comments Yes 7 (1 standard drink = 0.6 oz pur e alcohol) 1/night [facility] Utilities Answer Date Recorded In the past 12 months has th e [employer], gas, oil, or water [employer] threatened to shut off services in your [...] How often do you attend chur or congregational services? Never 04/22/2022 Do you belong to any clubs o r organizations such as sabianism groups, unions, fraternal or athletic groups, or [...] Answer Date Recorded PHQ-2 Score 1 04/22/2022 [facility] of Occupat ional Health - [...] your living situation today? I have a [facility] place to live 01/10/2024 Education Answer Date Recorded What is the highest level of school you have completed or the highest degree you have received? Associate degree: occupational, technical, or vocational program 02/23/2020 Comments No Sex and Gender Information Value Date Recorded Sex Assigned at Female 04/05/2021 8:26 AM CDT Legal Sex Female 10:17 AM CASH APPLICATION REPRESENTATIVE Gender Identity Female 04/05/2021 8:26 AM CDT Sexual Orientation Straight 04/05/2021 8: 26 AM CDT documented as of this encounter Plan of Treatment Upcoming Encounters Date Type Department Care Team (Latest Contact Info) Description 06/07/2024 1:30 PM CASH APPLICATION REPRESENTATIVE Clinical Communication Virtual Review in [place], [place] [address] [place] [address] 06/10/2024 3:00 PM CASH APPLICATION REPRESENTATIVE Ancillary Procedure Department of Ophthalmology in [place], [place] [address] [place] [phone] Maninder Castillo M.D. [address] [place] [phone] 06/10/2024 3:30 PM CASH APPLICATION REPRESENTATIVE Ancillary Procedure Department of Ophthalmology in [place], [place] [address] [place] [phone] 06/10/2024 4:00 PM CASH APPLICATION REPRESENTATIVE Comprehensive Visit Department of Ophthalmology in [place], [place] [address] [place] [phone] Maninder Castillo M.D. [address] [place] [phone] 08/13/2024 8:45 AM CASH APPLICATION REPRESENTATIVE Clinical Communication Virtual Review in [place], [place] [address] [place] [address] 08/16/2024 7:00 AM CASH APPLICATION REPRESENTATIVE Ancillary Procedure Department of Ophthalmology in [place], [place] [address] [place] [address] Azra Alexander O.D. [address] [place] [phone] 08/16/2024 7:30 AM CASH APPLICATION REPRESENTATIVE Ancillary Procedure Department of Ophthalmology in [place], [place] [address] [place] [phone] 08/16/2024 8:00 AM CASH APPLICATION REPRESENTATIVE Ancillary Procedure Department of Ophthalmology in [place], [place] [address] [place] [phone] Azra Alexander O.D. [address] [place] [phone] 08/16/2024 10:00 AM CASH APPLICATION REPRESENTATIVE Office Visit Department of Ophthalmology in [place], [place] [address] [place] [address] Azra Alexander O.D. [address] [place] [phone] documented as of this encounter Visit Diagnoses Not on filedocumented in this encounter Additional Health Concerns Assessment Noted Time PHQ-9 Depression Total Score: 3 07/26/19 21 1:11 PM CASH APPLICATION REPRESENTATIVE documented as of this encounter Care Teams School Manager Relationship Specialty Start Date End Date Elsewhere, Pcp PCP - General Family Medicine 01/02/21 documented as of this encounter
--- OUTSIDE RECORDS SUMMARY | 2024-05-27 16:22 | XMS_ITS | Encounter Summary ---
Author Organization [facility] Address [address] [place] [address] Care Team Providers Care Staking Technician Name Role Phone Elsewhere, Pcp Primary Care Provider Unavailabl e Encounter Details Date Type Department Care Team ( Contact Info) Description 11/24/2015 Historical Ophthalmology [facility]ST OPH Isael So Social History Tobacco Use Types Packs/Day Years Used Date Smoking Tobacco: Never Assessed Comments Unknown Sex and Gender Information Value Date Recorded Sex Assigned at Female 04/05/2021 8:26 AM CDT Legal Sex Female 10:17 AM AERIAL GUNNER SUPERINTENDENT Gender Identity Female 04/05/2021 8:26 AM CDT Sexual Orientation Straight 04/05/2021 8: 26 AM CDT documented as of this encounter Progress Notes * Isael So - 11/24/2015 4:34 PM CDT Contact Lens Exam MULTI-VISIT DOCUMENT This document contains multiple patient visits and is available for review in Document Viewer. CDM Reports - EYECL Id: [id number] Status: Fnl documented in this encounter Plan of Treatment Upcoming Encounters Date Type Department Care Team (Latest Contact Info) Description 06/07/2024 1:30 PM AERIAL GUNNER SUPERINTENDENT Clinical Communication Virtual Review in [place], [place] [address] [place] [address] 06/10/2024 3:00 PM AERIAL GUNNER SUPERINTENDENT Ancillary Procedure Department of Ophthalmology in [place], [place] [address] [place] [phone] Maninder Castillo M.D. [address] [place] [phone] 06/10/2024 3:30 PM AERIAL GUNNER SUPERINTENDENT Ancillary Procedure Department of Ophthalmology in [place], [place] [address] [place] [phone] 06/10/2024 4:00 PM AERIAL GUNNER SUPERINTENDENT Comprehensive Visit Department of Ophthalmology in [place], [place] [address] [place] [phone] Maninder Castillo M.D. [address] [place] [phone] 08/13/2024 8:45 AM AERIAL GUNNER SUPERINTENDENT Clinical Communication Virtual Review in [place], [place] 200 [place] [phone] 08/16/2024 7:00 AM AERIAL GUNNER SUPERINTENDENT Ancillary Procedure Department of Ophthalmology in [place] [address] [place] [phone] Azra Alexander O.D. [address] [place] [phone] 08/16/2024 7:30 AM AERIAL GUNNER SUPERINTENDENT Ancillary Procedure Department of Ophthalmology in [place] [address] [place] [phone] 08/16/2024 8:00 AM AERIAL GUNNER SUPERINTENDENT Ancillary Procedure Department of Ophthalmology in [place] [address] [place] [phone] Azra Alexander O.D. [address] [place] [phone] 08/16/2024 10:00 AM AERIAL GUNNER SUPERINTENDENT Office Visit Department of Ophthalmology in [place] [address] [place] [phone] Azra Alexander O.D. 200 [place] [address] documented as of this encounter Visit Diagnoses Not on filedocumented in this encounter Care Teams Staking Technician Relationship Specialty Start Date End Date Elsewhere, Pcp PCP - General Family Medicine 01/02/21 documented as of this encounter
--- OUTSIDE RECORDS SUMMARY | 2024-05-27 16:22 | XMS_ITS | Encounter Summary ---
Author Organization [facility] Address [address] [place] [address] Care Team Providers Care Obiee Architect Name Role Phone Elsewhere, Pcp Primary Care Provider Unavailabl e Encounter Details Date Type Department Care Team (Late st Contact Info) Description 04/07/2014 Historical Ophthalmology RST OPH Azra Alexander O.D. [address] [place] [address] Social History Tobacco Use Types Packs/Day Years Used Date Smoking Tobacco: Never Assessed Comments Unknown Sex and Gender Information Value Date Recorded Sex Assigned at Female 04/05/2021 8:26 AM CDT Legal Sex Female 10:17 AM SPECIAL AGENT Gender Identity Female 04/05/2021 8:26 AM CDT Sexual Orientation Straight 04/05/2021 8: 26 AM CDT documented as of this encounter Progress Notes * Azra Alexander O.D. - 04/07/2014 12:44 PM CDT Eye General CHIEF COMPLAINT Blurry vision HISTORY OF PRESENT ILLNESS LUISANA 1 year ago. Patient wears monthly replacement contacts, multimedia assistant. Patient also has distance only eyeglasses worn [...] astigmatism, presbyopia). CDM Reports - EYEGEN Id: [id number] Status: Fnl documented in this encounter Plan of Treatment Upcoming Encounters Date Type Department Care Team (Latest Contact Info) Description 06/07/2024 1:30 PM SPECIAL AGENT Clinical Communication Virtual Review in [place], [place] 200 [place] [address] 06/10/2024 3:00 PM SPECIAL AGENT Ancillary Procedure Department of Ophthalmology in [address] [address] Maninder Castillo M.D. [address] [place] [phone] 06/10/2024 3:30 PM SPECIAL AGENT Ancillary Procedure Department of Ophthalmology in [place], [place] [address] [place] [phone] 06/10/2024 4:00 PM SPECIAL AGENT Comprehensive Visit Department of Ophthalmology in [address] [address] Maninder Castillo M.D. [address] [place] [phone] 08/13/2024 8:45 AM SPECIAL AGENT Clinical Communication Virtual Review in [address] [phone] 08/16/2024 7:00 AM SPECIAL AGENT Ancillary Procedure Department of Ophthalmology in [place], [place] [address] [place] [phone] Azra Alexander O.D. [address] [place] [phone] 08/16/2024 7:30 AM SPECIAL AGENT Ancillary Procedure Department of Ophthalmology in [address] [place] [address] 08/16/2024 8:00 AM SPECIAL AGENT Ancillary Procedure Department of Ophthalmology in [address] [place] [address] Azra Alexander O.D. [address] [place] [phone] 08/16/2024 10:00 AM SPECIAL AGENT Office Visit Department of Ophthalmology in [address] [place] [address] Azra Alexander O.D. [address] [place] [phone] documented as of this encounter Visit Diagnoses Not on filedocumented in this encounter Care Teams Obiee Architect Relationship Specialty Start Date End Date Elsewhere, Pcp PCP - General Family Medicine 01/02/21 documented as of this encounter
--- OUTSIDE RECORDS SUMMARY | 2024-05-27 16:22 | XMS_ITS ---
Author Organization [facility] Address [address] [place] [address] Care Team Providers Care Automotive Electrician Name Role Phone Unavailable Unavailable Unavailable Surgery Details Not on file Complications Check Surgery Details section. Procedure Estimated Blood Loss Check Surgery Details section. Procedure Findings Check Surgery Details section. Procedure Specimens Taken Check Surgery Details section.
--- OUTSIDE RECORDS SUMMARY | 2024-05-27 16:22 | XMS_ITS | Encounter Summary ---
Author Organization [facility] Address [address] [place] [address] Care Team Providers Care Concrete Stone Finisher Name Role Phone Elsewhere, Pcp Primary Care Provider Unavailabl e Encounter Details Date Type Department Care Team (Late st Contact Info) Description 11/24/2015 Historical Ophthalmology RST OPH Trish Granda M.D. [address] [address] Social History Tobacco Use Types Packs/Day Years Used Date Smoking Tobacco: Never Assessed Comments Unknown Sex and Gender Information Value Date Recorded Sex Assigned at Female 04/05/2021 8:26 AM CDT Legal Sex Female 10:17 AM SHALE PROCESSING TECHNICIAN Gender Identity Female 04/05/2021 8:26 AM CDT Sexual Orientation Straight 04/05/2021 8: 26 AM CDT documented as of this encounter Progress Notes * Trish Granda M.D. - 11/24/2015 3:25 PM CDT Eye Subsequent Visit HISTORY OF PRESENT ILLNESS Here for New Rx CDM Reports - EYESV Id: [id number] Status: Fnl documented in this encounter Plan of Treatment Upcoming Encounters Date Type Department Care Team (Latest Contact Info) Description 06/07/2024 1:30 PM SHALE PROCESSING TECHNICIAN Clinical Communication Virtual Review in [place], [place] [address] [place] [address] 06/10/2024 3:00 PM SHALE PROCESSING TECHNICIAN Ancillary Procedure Department of Ophthalmology in [place], [place] [address] [place] [phone] Maninder Castillo M.D. [address] [place] [phone] 06/10/2024 3:30 PM SHALE PROCESSING TECHNICIAN Ancillary Procedure Department of Ophthalmology in [place], [place] [address] [place] [phone] 06/10/2024 4:00 PM SHALE PROCESSING TECHNICIAN Comprehensive Visit Department of Ophthalmology in [place], [place] [address] [place] [phone] Maninder Castillo M.D. [address] [place] [phone] 08/13/2024 8:45 AM SHALE PROCESSING TECHNICIAN Clinical Communication Virtual Review in [place], [place] 200 [place] [address] 08/16/2024 7:00 AM SHALE PROCESSING TECHNICIAN Ancillary Procedure Department of Ophthalmology in [place], [place] [address] [place] [phone] Azra Alexander O.D. [address] [place] [phone] 08/16/2024 7:30 AM SHALE PROCESSING TECHNICIAN Ancillary Procedure Department of Ophthalmology in [place], [place] [address] [place] [phone] 08/16/2024 8:00 AM SHALE PROCESSING TECHNICIAN Ancillary Procedure Department of Ophthalmology in [place], [place] [address] [place] [phone] Azra Alexander O.D. [address] [place] [phone] 08/16/2024 10:00 AM SHALE PROCESSING TECHNICIAN Office Visit Department of Ophthalmology in [place], [place] [address] [phone] [place] [address] documented as of this encounter Visit Diagnoses Not on filedocumented in this encounter Care Teams Concrete Stone Finisher Relationship Specialty Start Date End Date Elsewhere, Pcp PCP - General Family Medicine 01/02/21 documented as of this encounter
--- OUTSIDE RECORDS SUMMARY | 2024-05-27 16:23 | XMS_ITS | Encounter Summary ---
Author Organization [facility] Address [address] [place] [address] Care Team Providers Care Main Line Station Engineer Name Role Phone Elsewhere, Pcp Primary [...] AM CDT Legal Sex Female 10:17 AM WHITEWATER RAFTING GUIDE Gender Identity Female 04/05/2021 8:26 AM CDT [...] Hyperopia, presbyopia CDM Reports - EYEGEN Id: [id number] Status: Fnl documented in this encounter Plan of Treatment Upcoming Encounters Date Type Department Care Team (Latest Contact Info) Description 06/07/2024 1:30 PM WHITEWATER RAFTING GUIDE Clinical Communication Virtual Review in [place], [place] 200 [place] [address] 06/10/2024 3:00 PM WHITEWATER RAFTING GUIDE Ancillary Procedure Department of Ophthalmology in [place], [place] [address] [place] [phone] Maninder Castillo M.D. [address] [place] [phone] 06/10/2024 3:30 PM WHITEWATER RAFTING GUIDE Ancillary Procedure Department of Ophthalmology in [place], [place] [address] [place] [phone] 06/10/2024 4:00 PM WHITEWATER RAFTING GUIDE Comprehensive Visit Department of Ophthalmology in [place], [place] [address] [place] [phone] Maninder Castillo M.D. [address] [place] [phone] 08/13/2024 8:45 AM WHITEWATER RAFTING GUIDE Clinical Communication Virtual Review in [place], [place] 200 [place] [address] 08/16/2024 7:00 AM WHITEWATER RAFTING GUIDE Ancillary Procedure Department of Ophthalmology in [place], [place] [address] [phone] Azra Alexander O.D. [address] [place] [phone] 08/16/2024 7:30 AM WHITEWATER RAFTING GUIDE Ancillary Procedure Department of Ophthalmology in [place], [place] [address] [place] [phone] 08/16/2024 8:00 AM WHITEWATER RAFTING GUIDE Ancillary Procedure Department of Ophthalmology in [place], [place] [address] [phone] Azra Alexander O.D. [address] [place] [phone] 08/16/2024 10:00 AM WHITEWATER RAFTING GUIDE Office Visit Department of Ophthalmology in [place], [place] [address] [place] [phone] Azra Alexander O.D. 200 [place] [address] documented as of this encounter Visit Diagnoses Not on filedocumented in this encounter Care Teams Main Line Station Engineer Relationship Specialty Start Date End Date Elsewhere, Pcp PCP - General Family Medicine 01/02/21 documented as of this encounter
--- OUTSIDE RECORDS SUMMARY | 2024-05-27 16:23 | XMS_ITS | Encounter Summary ---
Author Organization [facility] Address [address] [place] [address] Care Team Providers Care Concrete Fence Builder Name Role Phone Elsewhere, Pcp Primary Care Provider Unavailabl e Encounter Details Date Type Department Care Team (Late st Contact Info) Description 02/18/2006 Historical Ophthalmology RST OPH Debbie Gandara O.D. [address] [place] [phone] Social History Tobacco Use Types Packs/Day Years Used Date Smoking Tobacco: Never Assessed Comments Unknown Sex and Gender Information Value Date Recorded Sex Assigned at Female 04/05/2021 8:26 AM CDT Legal Sex Female 10:17 AM CADDYMASTER Gender Identity Female 04/05/2021 8:26 AM CDT Sexual Orientation Straight 04/05/2021 8: 26 AM CDT documented as of this encounter Progress Notes * Debbie Gandara O.D. - 02/18/2006 12:00 AM CDT Contact Lens Exam MULTI-VISIT DOCUMENT This document contains multiple patient visits and is available for review in Document Viewer. CDM Reports - EYECL Id: [id number] Status: Fnl documented in this encounter Plan of Treatment Upcoming Encounters Date Type Department Care Team (Latest Contact Info) Description 06/07/2024 1:30 PM CADDYMASTER Clinical Communication Virtual Review in [place], [place] 200 [place] [address] 06/10/2024 3:00 PM CADDYMASTER Ancillary Procedure Department of Ophthalmology in [place], [place] [address] [place] [phone] Maninder Castillo M.D. [address] [place] [phone] 06/10/2024 3:30 PM CADDYMASTER Ancillary Procedure Department of Ophthalmology in [place], [place] [address] [place] [phone] 06/10/2024 4:00 PM CADDYMASTER Comprehensive Visit Department of Ophthalmology in [place], [place] [address] [place] [phone] Maninder Castillo M.D. [address] [place] [phone] 08/13/2024 8:45 AM CADDYMASTER Clinical Communication Virtual Review in [place], [place] 200 [place] [address] 08/16/2024 7:00 AM CADDYMASTER Ancillary Procedure Department of Ophthalmology in [place], [place] [address] [place] [phone] Azra Alexander O.D. [address] [place] [phone] 08/16/2024 7:30 AM CADDYMASTER Ancillary Procedure Department of Ophthalmology in [place], [place] [address] [place] [phone] 08/16/2024 8:00 AM CADDYMASTER Ancillary Procedure Department of Ophthalmology in [place], [place] [address] [phone] Azra Alexander O.D. [address] [place] [phone] 08/16/2024 10:00 AM CADDYMASTER Office Visit Department of Ophthalmology in [place], [place] [address] [place] [phone] Azra Alexander O.D. [address] [place] [address] documented as of this encounter Visit Diagnoses Not on filedocumented in this encounter Care Teams Concrete Fence Builder Relationship Specialty Start Date End Date Elsewhere, Pcp PCP - General Family Medicine 01/02/21 documented as of this encounter
--- OUTSIDE RECORDS SUMMARY | 2024-05-27 16:23 | XMS_ITS | Encounter Summary ---
Author Organization [facility] Address [address] [place] [address] Care Team Providers Care Secretary To Board Of Commissioners Name Role Phone Elsewhere, Pcp Primary Care Provider Unavailabl e Encounter Details Date Type Department Care Team (Late st Contact Info) Description 12/06/2005 Historical Ophthalmology RST OPH Robert Cha M.D. [address] [place] [phone] Social History Tobacco Use Types Packs/Day Years Used Date Smoking Tobacco: Never Assessed Comments Unknown Sex and Gender Information Value Date Recorded Sex Assigned at Female 04/05/2021 8:26 AM CDT Legal Sex Female 10:17 AM SHAKE LOADER Gender Identity Female 04/05/2021 8:26 AM CDT [...] of continous wear. Contact lenses supplied from [employer], following an exam done in [place] 2-3 years ago. Has a 2 month supply of lenses left. Wants to set up a future appointment for a contact lens evaluation here. Would like to have better reading and distant vision. Denies eye pain, occasional floaters, flashes, or diplopia. IMPRESSION / REPORT / PLAN #1 Hyperopia, presbyopia Gave updated glasses Rx. Patient will call for contact lens appointment at [facility]. DIAGNOSIS #1 Hyperopia, presbyopia CDM Reports - EYEGEN Id: [id number] Status: Fnl documented in this encounter Plan of Treatment Upcoming Encounters Date Type Department Care Team (Latest Contact Info) Description 06/07/2024 1:30 PM SHAKE LOADER Clinical Communication Virtual Review in [address] [phone] 06/10/2024 3:00 PM SHAKE LOADER Ancillary Procedure Department of Ophthalmology in [address] [address] Maninder Castillo M.D. [address] [place] [phone] 06/10/2024 3:30 PM SHAKE LOADER Ancillary Procedure Department of Ophthalmology in [address] [address] 06/10/2024 4:00 PM SHAKE LOADER Comprehensive Visit Department of Ophthalmology in [address] [address] Maninder Castillo M.D. [address] [place] [phone] 08/13/2024 8:45 AM SHAKE LOADER Clinical Communication Virtual Review in [address] [phone] 08/16/2024 7:00 AM SHAKE LOADER Ancillary Procedure Department of Ophthalmology in [place], [place] [address] [place] [address] Azra Alexander O.D. [address] [place] [phone] 08/16/2024 7:30 AM SHAKE LOADER Ancillary Procedure Department of Ophthalmology in [place], [place] [address] [place] [address] 08/16/2024 8:00 AM SHAKE LOADER Ancillary Procedure Department of Ophthalmology in [place] [address] [place] [address] Azra Alexander O.D. 200 [place] [address] 08/16/2024 10:00 AM SHAKE LOADER Office Visit Department of Ophthalmology in [place], [place] [address] [place] [address] Azra Alexander O.D. [address] [place] [address] documented as of this encounter Visit Diagnoses Not on filedocumented in this encounter Care Teams Secretary To Board Of Commissioners Relationship Specialty Start Date End Date Elsewhere, Pcp PCP - General Family Medicine 01/02/21 documented as of this encounter
--- OUTSIDE RECORDS SUMMARY | 2024-05-27 16:23 | XMS_ITS | Clinical Summary ---
Author Organization [facility] Address [place], [place] [address] Care Team Providers Care Bariatric Program Coordinator Name Role Phone Jihan Casillas MD Primary Care Provider [phone] Allergies Active Allergy Reactions Criticality Noted Date [...] same day) for age 18+ 02/19/2018 02/19/2017 RSV vaccine for adults or (1 - 1-dose 75+ series) 2018 Tetanus booster 10/06/2022 10/06/2012, 03/2005, 10/02/1994 COVID-19 vaccine series ( season) 2024 04/22/2022 Influenza for age 65+ 03/21/2024 05/22/2022 , 05/14/2021, 04/24/2020, Additional history exists Tdap Completed 10/06/2012 Pneumococcal series for age 65+ Completed 6, 06/29/2008 Zoster (shingles) series for age 50+ Completed 06/27/2019, 04/10/2019, 08/02/2009 Care Teams Bariatric Program Coordinator Relationship Specialty Start Date End Date Jihan Casillas MD [address] [place] [address] PCP - General Internal Medicine 04/27/19
== END 2024-05-27 16:10 | disposition home or self-care (01) ==
PROVIDERS: PCP Internal Medicine; Visit Provider Internal Medicine
DX: E78.5 Hyperlipidemia, unspecified (principal); M85.80 Other specified disorders of bone density and structure, unspecified site
CPT/HCPCS: 80061; 82306

== ENCOUNTER 2024-08-23 13:13 | Outpatient (CLI) | payer MEDICARE, SELFPAY ==
--- NOTE | 2024-08-23 13:20 | CRLHL7_ITS ---
For Patients: As a result of the Century Cures Act, medical imaging exams and procedure reports are released immediately into your electronic medical record. You may view this report before your referring provider. If you have questions, please contact your health care provider. BILATERAL DIGITAL SCREENING MAMMOGRAM WITH COMPUTER-AIDED DETECTION AND TOMOSYNTHESIS CLINICAL HISTORY: Routine screening exam. COMPARISON: 08/22/23, 04/17/22, 04/05/21. TECHNIQUE: Digital mammogram in CC and MLO projections including computer-aided detection (CAD). Tomosynthesis was used in this interpretation. BREAST COMPOSITION: The breasts are heterogeneously dense, which may obscure small masses. FINDINGS: RIGHT Breast: No suspicious findings. LEFT Breast: Prominent LEFT axillary lymph nodes are present. IMPRESSION: LEFT breast asymmetry/mass. RECOMMENDATIONS: LEFT axillary ultrasound recommended. The [facility] will contact the patient. A lay language report of this examination will be provided to the patient. BI-RADS Category 0: Incomplete: Need Additional Imaging Evaluation Dictated by Carl Vaughn MD @ 08/24/2024 8:46:16 AM j/Dictated by: Carl Vaughn MD @ 08/24/2024 8:46:00 AM (Electronically Signed)
== END 2024-08-23 13:14 | disposition home or self-care (01) ==
PROVIDERS: PCP Internal Medicine; Visit Provider Internal Medicine
DX: Z12.31 Encounter for screening mammogram for malignant neoplasm of breast (principal); R92.333 Mammographic heterogeneous density, bilateral breasts; N63.20 Unspecified lump in the left breast, unspecified quadrant
CPT/HCPCS: 77063; 77067

== ENCOUNTER 2024-08-26 10:57 | Outpatient (CLI) | payer MEDICARE, SELFPAY | END 2024-08-26 10:58 | disposition home or self-care (01) | LOC: US 10:58 | PROVIDERS: PCP Internal Medicine; Visit Provider Internal Medicine | DX: R92.8 Other abnormal and inconclusive findings on diagnostic imaging of breast (principal); R59.0 Localized enlarged lymph nodes; Z85.6 Personal history of leukemia | CPT/HCPCS: 76882 ==

== ENCOUNTER 2025-06-21 09:52 | Outpatient (CLI) | payer MEDICARE, SELFPAY | END 2025-06-21 09:53 | disposition home or self-care (01) | PROVIDERS: PCP Internal Medicine; Visit Provider Internal Medicine | DX: E78.5 Hyperlipidemia, unspecified (principal); M85.80 Other specified disorders of bone density and structure, unspecified site | CPT/HCPCS: 80061; 82306 ==

== ENCOUNTER 2025-06-28 10:01 | Outpatient (CLI) | payer MEDICARE, SELFPAY ==
--- NOTE | 2025-06-28 10:15 | CRLHL7_ITS ---
For Patients: As a result of the Century Cures Act, medical imaging exams and procedure reports are released immediately into your electronic medical record. You may view this report before your referring provider. If you have questions, please contact your health care provider. INDICATION: Low back pain. COMPARISON: 08/20/2022. Technique Sagittal T1, T2, and STIR sequences. Axial T1 and T2 weighted sequences. FINDINGS: Trace lumbar curve convex the right. In sagittal plane, grade 1 anterolisthesis of L4 on L5 and L5 on S1 measures approximately 4 mm. Otherwise, normal alignment. No fractures. No vertebral body loss of height. No ligamentous injury. No suspicious osseous lesions. Normal conus terminates at L2. T12-L1 L1-2: No spinal canal or neural foraminal narrowing. L2-3: Disc degeneration diffuse disc bulge eccentric to the left. Modic type 1 endplate changes. No narrowing of spinal canal. Mild narrowing of left neural foramen. No narrowing of the right neural foramen. L3-4: Disc degeneration. Modic type 1 endplate changes. Diffuse disc bulge. Mild narrowing of spinal canal. Left subarticular recess narrowing potential impingement of the traversing left L4 nerve root. Mild narrowing of the bilateral foramina. No narrowing of the right neural foramen. Mild facet arthropathy. L4-5: Grade 1 anterolisthesis. Disc degeneration and diffuse disc bulge. No narrowing of spinal canal. No neural foraminal narrowing. Mild facet arthropathy. L5-S1: Disc degeneration posterior disc bulge. No narrowing of spinal canal. No impingement of the traversing S1 nerve roots. Mild narrowing of bilateral foramina. Moderate facet arthropathy. Degenerative changes of the SI joints. Multiple Tarlov cysts within the sacrum with smooth remodeling of the surrounding osseous structures. No presacral edema inflammation. Left renal cyst. IMPRESSION: 1. Trace lumbar curve convex to the right. Grade 1 anterolisthesis of L4 on L5 and L5 on S1. 2. Otherwise normal alignment. No fractures. 3. Lumbar spondylosis 4. At L3-4, disc degeneration. Mild narrowing of the spinal canal. Potential impingement of the traversing left L4 nerve root. Mild narrowing of the bilateral neural foramina 5. At L5-S1, mild narrowing of the bilateral neural foramina Dictated by Tone Velazquez MD @ 06/28/2025 3:25:10 PM (Electronically Signed)
== END 2025-06-28 10:02 | disposition home or self-care (01) ==
LOC: MRI 10:02
PROVIDERS: PCP Internal Medicine; Visit Provider Internal Medicine
DX: M54.50 Low back pain, unspecified (principal); M43.16 Spondylolisthesis, lumbar region; M47.816 Spondylosis without myelopathy or radiculopathy, lumbar region; M48.061 Spinal stenosis, lumbar region without neurogenic claudication; G96.191 Perineural cyst; N28.1 Cyst of kidney, acquired
CPT/HCPCS: 72148